=== PATIENT | female | born 1985 | race Caucasian/White ===

== ENCOUNTER 2018-04-19 09:55 | Emergency (ER) | payer MEDICAID, SELFPAY ==
[2018-04-19 10:06] VITALS: BP 111/56; PULSE 72; RESP 14; TEMP 37.2; O2SAT 99
--- NOTE | 2018-04-19 10:06 | ED.GENADUL_ITS ---
Disposition Clinical Impression: Pharyngitis Disposition: HOME Condition: Stable Instructions: Pharyngitis (ED) Additional Instructions: Drink plenty of fluids and get plenty of rest. Alternate Tylenol and Motrin as needed and directed for pain. Follow-up with your primary care doctor within the next week. Return to the emergency department with any worsening or new concerning symptoms. Medical Decision Making - Lab Data Rapid strep negative - Medical Decision Making 33-year-old female w/ sore throat for the past 2 days. Pharynx exam notes erythema but no exudates, tonsillar edema, or abscess. Uvula midline. Mild bilateral tender lymphadenopathy. She appears nontoxic and in no acute distress. She has normal vitals. Temp 99. Rapid strep done and negative. Patient is requesting to leave that she has to take her children home. It was explained to patient that her symptoms can certainly be viral but could turn bacterial and to be aware of any worsening symptoms and to follow-up with her primary care doctor or return to the ER for further evaluation. She was instructed to continue symptomatic treatment such as Tylenol, ibuprofen, saltwater gargles, and increase fluid intake and rest. History of Present Illness - General Stated complaint: SORE THROAT Time Seen by Provider: 04/19/18 10:03 Source: patient Mode of arrival: ambulatory Limitations: no limitations - History of Present Illness Initial comments: Patient is a 33-year-old female presents to the ER with complaint of sore throat for the past few days. 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 Also admits to occasional runny nose, headache. She denies fever chills. - Related Data Cholecalciferol (Vitamin D3) [Vitamin D3] 4,000 unit PO DAILY 04/12/17 Fluticasone Propionate [Flovent 220MCG] 440 mcg IH BID #1 inhaler 12/04/17 Allergies Allergy/AdvReac Type Severity Reaction Status Date / Time metronidazole [From Flagyl] Allergy Intermediate Skin Rash Unverified 04/19/18 10:09 Review of Systems Constitutional: denies: chills, fever Eyes: denies: eye pain ENT: throat pain. denies: ear pain, dental pain Respiratory: denies: cough, shortness of breath Cardiovascular: denies: chest pain, dyspnea on exertion Gastrointestinal: denies: abdominal pain, nausea, vomiting Genitourinary: denies: urgency, dysuria, frequency, dyspareunia Musculoskeletal: denies: back pain Skin: denies: rash, lesions Neurological: denies: headache, weakness, numbness Past Medical History - Past Medical History Medical history: asthma Fibrocystic disease of breast Surgical history: other (Sebaceous cyst L ear) - Social History Smoking status: current everyday smoker Alcohol use: none Drug use: marijuana General Exam - General Limitations: no limitations General appearance: alert, in no apparent distress - Eye Eye exam: Present: EOMI - ENT ENT exam: Present: other (Posterior pharyngeal erythema. No exudates, tonsillar edema, abscess. Uvula midline.) - Neck Neck exam: Present: normal inspection, lymphadenopathy (Bilateral anterior lymphadenopathy) - Respiratory Respiratory exam: Present: normal lung sounds bilaterally. Absent: respiratory distress, wheezes, rales, rhonchi, stridor - Cardiovascular Cardiovascular Exam: Present: regular rate, normal rhythm. Absent: bradycardia , tachycardia - GI/Abdominal GI/Abdominal exam: Present: soft, normal bowel sounds. Absent: distended, tenderness, guarding, rebound, rigid - Neurological Exam Neurological exam: Present: alert, oriented X3 - Psychiatric Psychiatric exam: Present: normal affect - Skin Skin exam: Present: warm, dry, intact
== END 2018-04-19 10:36 | disposition home or self-care (01) ==
PROVIDERS: Emergency Provider Physician Assistant; PCP Internal Medicine
DX: J02.9 Acute pharyngitis, unspecified (principal)
CPT/HCPCS: 87880; 99283; 87081; 99282

== ENCOUNTER 2018-05-04 09:47 | Emergency (ER) | payer MEDICAID, SELFPAY ==
[2018-05-04 09:51] VITALS: BP 108/63; PULSE 65; RESP 14; TEMP 37; O2SAT 97
--- NOTE | 2018-05-04 10:02 | DI.REPORT_ITS ---
SYMPTOM/DIAGNOSIS: PAIN, POSTERIOR ANKLE, MID FOOT LEFT ANKLE: No fracture or ankle mortise widening is seen. IMPRESSION: Negative left ankle. LEFT FOOT: No fracture or dislocation is seen. IMPRESSION: Negative left foot.
--- NOTE | 2018-05-04 10:02 | ED.GENADUL ---
Disposition Clinical Impression: Left foot pain, Left ankle pain, Plantar fasciitis of left foot Disposition: HOME Condition: Stable Instructions: Plantar Fasciitis (ED), Plantar Fasciitis Exercises (GEN) Additional Instructions: I did not see any abnormalities of your bone on the xray I suspect you have plantar fasciitis based on your exam Follow up with your primary care provider within 2 weeks if you have fevers, your foot becomes swollen and red return to the emergency department Medical Decision Making - Radiology Data Radiology results: image reviewed - Medical Decision Making Pt here with likely plantar fascitis or possible bone spur. will xray to eval for possible stress fx. Has no findings on exam or hx to suggest osteo or septic joint at this time xrays on my read show no acute abnormality, she doesn't want to wait for vrad report so will call her if any significant abnormalities seen. Will send home with crutches to use prn. Suspect plantar fascitis, will have her continue nsaids and f/u with pcp - Differential Diagnosis plantar fascitis, stress fracture, bone spur History of Present Illness - General Chief complaint: Orthopedic Stated complaint: LT FOOT PAIN Time Seen by Provider: 05/04/18 09:52 Source: patient Mode of arrival: ambulatory Limitations: no limitations - History of Present Illness Initial comments: 33 yo female who denies chronic medical problems comes in with cc of left foot pain for months but increased over the past week or two. She denies any known trauma or known increase in activity. She has seen her pcp and is going to see PT on but still has pain with walking so came here. She has pain of the entire plantar surface of the left foot and posterior ankle with no palpable or visible deformities, no rashes, no warmth, normal sensation and 2+ dp/pt pulses Complaint: left foot pain Onset/Timin -: month(s) Location: lower extremity Radiation: non-radiation Severity scale (1-10): 5 Quality: aching Consistency: constant Improves with: rest Worsens with: movement Associated Symptoms: denies other symptoms Treatments Prior to Arrival: none - Related Data Cholecalciferol (Vitamin D3) [Vitamin D3] 4,000 unit PO DAILY 04/12/17 Ibuprofen 400 mg PO QID #60 tab-cap 04/30/18 Allergies Allergy/AdvReac Type Severity Reaction Status Date / Time metronidazole [From Flagyl] Allergy Intermediate Skin Rash Unverified 05/04/18 09:56 Review of Systems Constitutional: denies: fever Respiratory: denies: shortness of breath Cardiovascular: denies: chest pain Gastrointestinal: denies: abdominal pain, vomiting Neurological: denies: headache Comment: All other systems reviewed and negative Past Medical History - Past Medical History Medical history: asthma Fibrocystic disease of breast Surgical history: other (Sebaceous cyst L ear) - Social History Alcohol use: none Drug use: marijuana General Exam - General Limitations: no limitations General appearance: alert, in no apparent distress - Head Head exam: Present: atraumatic - Eye Eye exam: Present: normal apperance - ENT ENT exam: Present: mucous membranes moist - Neck Neck exam: Present: normal inspection - Respiratory Respiratory exam: Absent: respiratory distress - Cardiovascular Cardiovascular Exam: Present: regular rate - Extremities Exam Extremities exam: Present: normal inspection, full ROM, tenderness, normal capillary refill. Absent: pedal edema, joint swelling, calf tenderness - Neurological Exam Neurological exam: Present: alert, oriented X3. Absent: motor sensory deficit - Psychiatric Psychiatric exam: Present: normal affect - Skin Skin exam: Present: warm Course Vital Signs - 24 hr 05/04/18 09:51 Temperature 98.6 F Pulse 65 Respiratory 14 Rate Blood Pressure 108/63 Pulse Oximetry 97
[2018-05-04] MEDS: Ibuprofen 600 MG TAB PO (10:05)
--- NOTE | 2018-05-04 11:03 | DI.VRAD_ITS ---
EXAM: XR Left Ankle Complete, 3 or more Views EXAM DATE/TIME: 05/04/2018 10:03 AM CLINICAL HISTORY: 33 years old, female; Signs and symptoms; Other: Pain posterior ankle TECHNIQUE: XR Left ankle 3 or more views. COMPARISON: No relevant prior studies available. FINDINGS: Bones/joints: No acute fracture or dislocation is identified. The ankle mortise is preserved on these nonstressed views. Soft tissues: The soft tissues appear grossly unremarkable. IMPRESSION: No significant abnormality. Dictated and Authenticated by: Johny Elena MD. Ordering:JAYDON LAND MD
--- NOTE | 2018-05-04 11:04 | DI.VRAD_ITS ---
EXAM: XR Left Foot Complete, 3 or more Views EXAM DATE/TIME: 05/04/2018 10:03 AM CLINICAL HISTORY: 33 years old, female; Signs and symptoms; Other: Pain of mid foot; Additional info: No known trauma TECHNIQUE: XR Left foot 3 or more views. COMPARISON: No relevant prior studies available. FINDINGS: Bones/joints: No acute fracture or dislocation is identified. Soft tissues: The soft tissues appear grossly unremarkable. IMPRESSION: No significant abnormality. Dictated and Authenticated by: Johny Elena MD. Ordering:JAYDON LAND MD
== END 2018-05-04 11:06 | disposition home or self-care (01) ==
PROVIDERS: Emergency Provider Emergency Medicine; PCP Internal Medicine
DX: M25.572 Pain in left ankle and joints of left foot (principal); M72.2 Plantar fascial fibromatosis
CPT/HCPCS: 99283; 73610; 73630; E0114

== ENCOUNTER 2018-05-16 14:30 | Outpatient (RCR) | payer MEDICAID, SELFPAY ==
--- NOTE | 2018-05-08 15:51 | IE_ITS ---
Date: 05/08/18 Referring: Dr. Neda Jones Diagnosis: left plantar fasciitis P.T. Diagnosis: bilateral Achilles tendinitis, bilat plantar fasciitis SUBJECTIVE: History of Present Illness: Geovanni presents with complaints of insidious onset foot and ankle pain. She states that she began noticing left heel pain when getting out of bed in the morning several weeks ago. She's unable to attribute onset of pain to any specific activity, although does note that she began wearing an old pair of clogs around that time, which were very worn. She feels this may have contributed. She began noticing worsening symptoms as weeks went on, eventually affecting both heels. She purchased a pair of [employer]oka sneakers , and also got 2 pairs of cushioning inserts, which she's worn only intermittently, as she did not feel any significant improvement with use. She in fact began noticing discomfort in the forefoot due to her shoe feeling too tight. She eventually resorted to using crutches for a couple of days, and at that point feels that the pain seemed to become less in her heels and more into the back of the heel and up into the lower calf. She's very frustrated with her continued pain, and has a great deal of questions about how she can remedy this situation with exercises, footwear, etc. Pain Ratin-8/10, dependent on activity Pain Location: patient references achilles tendon, right>left as location of pain Prior Level of Function: Active and independent. 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 This requires a significant amount of walking. She also has 3 children between the ages of 3-14 , and is active with her kids. She states that she is very particular about her housework, and on her days off she spends a great deal of time on her feet cleaning, often for several hours at a time. Current Level of Function: Unable to walk for long periods due to pain. She continues to have pain when first getting out of bed, or when walking for longer periods. She is unable to perform her normal housework, or walk long distances (>2 blocks). She's unable to perform her normal walking routine, or participate in [place]. She has pain with stair management and is unable to run due to pain. Previous Treatment: Pt has seen her PCP 2x, and has also presented to the ER due to the severity of her pain. She's had x-rays, which were (-), and has been issued crutches, which she used for a couple of days only. Comorbidities: non-contributory Falls in the last year: __x__ No ____Yes - How many? ____ - (if over 2, balance SM needs to be completed) Reported hospitalizations in the last year - __x__ No ____ Yes - Dates of admission/reason: Medications: ibuprofen prn; vit D Quality of Life: ____ Excellent __x__ Good ____ Fair ____ Poor Standardized Measures: LEFS score: __55% deficit__ OBJECTIVE: Posture: Patient demonstrates good upright posturing. She has good maintenance of longitudinal arches, although with (+) too many toes sign left > right. She has a stability type sneaker of excellent quality. Gait: Marked antalgia, with flat foot through all phases of gait and subsequently shortened stride length. With cues, patient is able to regain heel strike and push off, with normalized stride length. Palpation: Tenderness to palpation along the Achilles tendon right>left. Mild tenderness at the calcaneal insertion of the plantar fascia bilat. No significant tenderness throughout the PF itself. Joint mobility between the metatarsals is normal. Talocrural mobility is WNL and non-pain reproducing. Edema: None ROM: Foot and ankle motion is WNL and painfree. Patient tolerates stretch position of the PF well, in fact reporting some relief with stretch. Ankle DF is normal, although with some drawing through the calf. This is worsened in flexed knee position for stretch to the soleus, although she continues to tolerate 20 degrees of DF. Strength: Hip flexion 5/5 bilat. Quads 5/5 bilat. HS 4/5 bilat. Hip IR 4/5 bilat. ER 4/5 bilat. Ankle DF 5/5 bilat. PF 4/5, with pain reproduction with bilat HR. Poor TrA activation with need for max cues. Neuro: Dermatomes and myotomes WNL. SLR (-) and allows 80 degrees bilat. DTRs are 2+ for patella and achilles tendon reflexes. Special Tests: (-) Harkins test. Treatment: Today's session consisted of evaluation, followed by long discussion regarding self-management and footwear. Patient received IASTM for down regulation throughout the calves bilat, followed by Rock Taping to the the Achilles tendon bilat. She was instructed in self-stretching and core stabilization exercises. Altered her shoe laces to open the toe box and encouraged resumed use of orthotic inserts. IE: [id number] Total treatment time was 65 minutes. ASSESSMENT: Patient is a 33-year-old female, referred for PT services with the diagnosis of left plantar fasciitis. Patient presents with clinical signs and symptoms consistent with bilat plantar fasciitis, which appears to be resolving, although with the unfortunate development of bilat Achilles tendinitis. I suspect this is largely due to alterations in gait mechanics and movement patterns, and that patient will do well with gait training and progressive stretching and strengthening. She's also made some good modifications in footwear, etc, which will be helpful. She currently demonstrates the following impairment level findings: 1. Decreased core strength 2.Decreased LE strength 3. Localized inflammation at the Achilles tendon bilat 4. Gait deviations Impairments are contributing to the following functional limitations: 1. Gait deviations 2. Unable to tolerate long distance walking 3. Unable to perform normal household duties 4. Intermittent reliance on crutches 5. Unable to perform normal wellness activities Patient is assessed as: __x__ Low 31995 ____ Moderate 84178 ____ High 95771 complexity, based on the following: History: (list): Insidious onset foot and ankle pain in otherwise healthy 33 year old female. See comorbidities and social history. Examination: (list): functional limitations as above See above for functional limitations and impairments. Presentation: x Stable . Evolving Unstable Decision-Making: x Low complexity Moderate complexity High complexity 55% % Disability based on LEFS __x__ Patient requires skilled PT intervention to remediate the above functional limitations to return to: __x__ Premorbid level of function __x__ Return to full functional mobility __x__ Return to work demands __x__ Improve QOL ____ Other: Prognosis: ____ Excellent __x__ Good ____ Fair ____ Poor STG: __6__ weeks. 1. Non-antalgic gait 2. Able to tolerate community distance walking for work duties LTG: __12__ weeks. __x__ Return to premorbid level of function. __x__ Return to full, pain-free, functional mobility. __x__ Independent with self-maintenance program. __x__ Improved overall function as demonstrated by LEFS score of <20% deficit PLAN: Patient to be seen 2 x per week, for 12 weeks, adjusting frequency of visits per patient symptoms and response to treatment. Treatment to include: x Manual therapy - [id number]: DTM techniques and neuro-facilitation with use of IASTM and taping techniques. Will also perform manual stretching and joint mobilizations throughout the foot and ankle. x Therapeutic exercise - [id number]- Will instruct patient in a progressive strengthening program for LEs and core stabilization. She was instructed in self-stretching exercises today, and will progress as she 's able to tolerate. Will also incorporate gait training and continue encouraging appropriate LE support. Thank you for this referral. Please do not hesitate to contact me with any questions or concerns regarding this patient's plan of care.
--- NOTE | 2018-05-12 14:02 | PTTR_ITS ---
DATE: 05/12/18 SUBJECTIVE: Geovanni states that her ankles are about the same. Her pain has localized to the Achilles tendon. It is worse with ambulation. She has been using her crutches quite regularly. She has concerns about returning to work on Saturday, and the amount of walking that will be required. OBJECTIVE: Manual therapy: ([id number]). The patient has tape in place from her previous visit. She received friction massage to the Achilles tendon as well as cross friction massage at the musculotendinous junction. She received manual stretching of the Achilles bilaterally. Therapeutic procedures ([id number]). * x HEP review: She was encouraged to continue with this. She was progressed to include standing heel raises x20 reps. * She required both verbal and tactile cues for appropriate completion and avoidance of reliance on UE support. * During ambulation she demonstrated flat foot at both heel strike and push off with rigid upright posturing and lack of arm swing. She requires significant cueing for heel/toe mechanics and improved overall gait mechanics. * She was also fitted with a heel lift, which provides some symptomatic relief with ambulation. * She is provided with a note for work to allow for seated rest breaks as pain requires and use of elevator in order to avoid stairs. Direct treatment time: 45 minutes SS/gc
--- NOTE | 2018-05-16 15:34 | PTTR_ITS ---
DATE: 05/16/18 SUBJECTIVE: Geovanni states that she's feeling a little better. She used the heel lift for two days, then removed it due to increasing pain through the bottom of the heel. She removed it yesterday, and states that her Achilles seems to be hurting more today. She continues to use her crutches intermittently. Compliant with HEP: x Yes No OBJECTIVE: Manual therapy: ([id number]): Removed kinesiotape bilaterally, as there is significant fraying. She received FM to the Achilles bilat, followed by CFM to the musculotendinous junction. She received manual gastroc stretching bilat. Therapeutic procedures ([id number]). * x HEP review: * x Provided skilled instruction in proper exercise performance: Patient was instructed in progression of HR to performance on stair (10 reps, 3x/day), as well as self-stretching to the Achilles on the stairs, 20 second holds, 3x/day. She continues to demonstrate flat foot at push off, and she received verbal and visual cues for gait training. She's able to demonstrate marked improvements with nearly normal gait patterns, although with limited carry over with elimination of mirror. * [] Provided skilled manual cues to facilitate proper muscle recruitment and /or movement pattern: [] Direct treatment time: 35 minutes Total treatment time: 35 minutes
== END 2018-05-16 23:59 | disposition home or self-care (01) ==
LOC: PT 14:30
PROVIDERS: PCP Internal Medicine; Referring Provider Internal Medicine; Visit Provider Internal Medicine
DX: M72.2 Plantar fascial fibromatosis (principal); M76.61 Achilles tendinitis, right leg; M76.62 Achilles tendinitis, left leg
CPT/HCPCS: 97110; 97140; 97161

== ENCOUNTER 2018-07-18 17:33 | Emergency (ER) | payer MEDICAID, SELFPAY ==
[2018-07-18 17:36] VITALS: BP 134/81; PULSE 82; RESP 16; TEMP 36.7; O2SAT 100
[2018-07-18 19:04] VITALS: PULSE 82; RESP 16; RESP 4; O2SAT 100
[2018-07-18] MEDS: Albuterol/Ipratropium 3 ML UPD VIAL UPD (19:04)
--- NOTE | 2018-07-18 19:16 | W.ED.GENAD ---
Discharge Plan Disposition Patient Disposition: HOME Condition: Improving Discharge Details Chief Complaint: RespSymp Clinical Impression: Acute serous otitis media, bilateral, URI (upper respiratory infection), Pneumonia Primary Care Provider: Joseph Syed ED Provider: Ricky Bahena Home Meds and New Rx's Prescriptions: Continue cholecalciferol (vitamin D3) [Vitamin D3] 2,000 UNIT capsule 4,000 unit PO DAILY RF: 0 ibuprofen 400 MG tablet 400 mg PO QID Qty: 60 RF: 2 No Action sulfamethoxazole-trimethoprim [Bactrim] 400-80 mg tablet 1 tab PO BID Qty: 14 RF: 1 Discharge Instructions Instructions: Upper Respiratory Infection (ED), Pneumonia (ED), Serous Otitis Media (ED) Additional Instructions: Take medication as prescribed and feel free to return to the emergency department for any new or worsening symptoms. In regards to you and your your inhaler you may take 1-2 puffs every 4 hours as needed for chest tightness and it is recommended that you use this with the spacer. For nasal congestion it is recommended that use of a [id number] decongestant such as Sudafed or other symptomatic treatment available. Just take as directed on packaging. Otherwise during illness please stay well-hydrated and get plenty of rest. Referrals: Joseph Syed [Primary Care Provider] - (As needed for reassessment or if not improving by the end of the antibiotics.) Discharge Data Discharge Date/Time-TO BE ENTERED AT DEPARTURE: 07/18/18 20:38 Medical Decision Making Patient presenting to the emergency department for complaint of dizziness and chest tightness. Patient states that she was seen earlier today at the PCP office and diagnosed with pneumonia and started on azithromycin and prednisone which she has not taken. Patient states when she was driving she started feeling a fullness in her ears and started having dizziness. Patient states that she has been sick for the past couple weeks and had initially improved and then worsened over the past 3 days. Physical exam does show significant bulging of the TMs bilateral but no erythema. She does have diffuse wheezing with some rhonchi heard on the left lung. Patient given duo nebulizer. Patient did wait prior to my examination and actually states that she now feels better and only has some slight dizziness with positional change. I feel that this is due to the increase in pressure with the ear given upper respiratory tract infect. Patient has other physical exam findings suggestive of upper respiratory tract infection but otherwise no neurological findings on exam and no other physical findings noted. Patient reassessed after nebulizer treatment and did have some improvement in wheezing but not full improvement. Patient was given a Ventolin inhaler with spacer and educated on use. Otherwise after thorough and lengthy discussion about use of azithromycin and prednisone and [id number] Sudafed patient states no further needs, questions, or concerns. Patient is otherwise stable with appropriate vital signs and no hypoxia so I feel that she is able to be safely discharged. Patient encouraged to follow-up with primary care office as needed for reassessment or return immediately to the emergency department for new or worsening symptoms. HPI General Mode of arrival: ambulatory. Date/Time Provider Initiated Documentation: 07/18/18 17:42. Limitations to Documentation: no limitations. Information obtained by: patient. History of Present Illness 33 year old F presents to the emergency department with the chief complaint of Ear pain, anxiety, described as mild, with intensity rated at 2. Quality is described as aching, and is localized to the head (bilateral ears). Patient started experiencing this day(s) (1) and it has been constant. No relieving factors improve symptom(s), No exacerbating factors reported . Patient notes chest pain. Patient did receive the following treatments prior to arrival, none Related Data Home Medications Medication Instructions Recorded Confirmed cholecalciferol (vitamin D3) 4,000 unit PO DAILY 04/12/17 07/23/18 [Vitamin D3] ibuprofen 400 mg PO QID #60 tab-cap 04/30/18 07/23/18 sulfamethoxazole 400 1 tab PO BID #14 tab 07/24/18 mg-trimethoprim 80 mg tablet Previous Rx's Medication Instructions Recorded ibuprofen 400 mg PO QID #60 tab-cap 04/30/18 sulfamethoxazole 400 1 tab PO BID #14 tab 07/24/18 mg-trimethoprim 80 mg tablet Allergies Allergy/AdvReac Type Severity Reaction Status Date / Time metronidazole [From Flagyl] Allergy Intermediate Skin Rash Unverified 07/23/18 10:02 prednisone AdvReac Intermediate Agitation, Verified 07/23/18 10:46 hyperactivity,palpitations General Stated Complaint: RespSymp ANITRA: 3 Review of Systems Constitutional Reports chills, Reports difficulty sleeping (Due to coughing), Reports fatigue, Reports fever(s) and Reports malaise ENT Reports hoarseness, Reports nasal congestion, Reports sinus pressure and Reports sore throat Cardiovascular Reports dyspnea Respiratory Reports chest congestion, Reports cough and Reports dyspnea Gastrointestinal Denies abdominal pain, Denies diarrhea, Denies nausea and Denies vomiting Musculoskeletal Denies joint swelling Integumentary/Breasts Denies rash Endocrine Reports fatigue Exam Const General: cooperative, comfortable, no acute distress and anxious Nutritional Appearance: average body habitus Orientation: alert, awake and oriented x3 [facility] Head: normal to inspection, normocephalic and atraumatic Ears: hearing grossly normal bilaterally, external ears normal and TM's normal bilaterally General nose exam: external nose normal, nares normal, no nasal discharge and other (Nasal congestion) Mouth: oral mucosae normal, lip normal, tongue normal and moist mucous membranes Throat: abnormal tonsil bilaterally erythema (mild); no exudates and postnasal drainage Eyes General: appearance normal, both eyes and all related structures Conjunctivae: conjunctivae normal Sclera: sclerae normal Neck Neck: normal visual inspection, full ROM, no lymphadenopathy, meningismus present and no JVD Resp Effort & Inspection: normal respiratory effort, able to speak in complete sentences, no audible wheezes, cough Quality of cough: actively coughing and not labored Auscultation: clear to auscultation bilaterally, rhonchi left upper and left lower and wheezes scattered wheezes, left lower, lower bilaterally and left upper Cardio Rate: regular rate Rhythm: regular rhythm Heart Sounds: S1 normal and S2 normal Skin General skin exam: no rashes or lesions noted and dry skin Rashes: no rashes Neuro General: alert, awake, oriented x3, gait normal, tone normal, moves all extremities, no meningeal signs, CN's II-XI intact bilaterally and not confused Course Vital Signs Temperature 36.7 C 07/18/18 17:36 Pulse 82 07/18/18 17:36 Respiratory Rate 16 07/18/18 17:36 Blood Pressure 134/81 07/18/18 17:36 Pulse Oximetry 100 07/18/18 17:36 Temperature 36.7 C 07/18/18 17:36 Temperature Source Temporal Artery Scan 07/18/18 17:36 Pulse 82 07/18/18 19:04 Respiratory Rate 16 07/18/18 19:04 Respiratory Effort 07/18/18 17:40 Blood Pressure 134/81 07/18/18 17:36 Blood Pressure Position Sitting 07/18/18 17:36 Pulse Oximetry 100 07/18/18 19:04 Oxygen Delivery Method Room Air 07/18/18 19:04 Oxygen Flow Rate 0 07/18/18 19:04 Pain Level 2 07/18/18 17:36
[2018-07-18 19:34] VITALS: PULSE 82; RESP 14; O2SAT 98
--- NOTE | 2018-07-18 19:39 | ED.GENADUL_ITS ---
Discharge Plan Disposition Patient Disposition: HOME Condition: Improving Discharge Details Chief Complaint: RespSymp Clinical Impression: Acute serous otitis media, bilateral, URI (upper respiratory infection), Pneumonia Primary Care Provider: Joseph Syed ED Provider: Ricky Bahena Home Meds and New Rx's Prescriptions: Continue cholecalciferol (vitamin D3) [Vitamin D3] 2,000 UNIT capsule 4,000 unit PO DAILY RF: 0 ibuprofen 400 MG tablet 400 mg PO QID Qty: 60 RF: 2 No Action sulfamethoxazole-trimethoprim [Bactrim] 400-80 mg tablet 1 tab PO BID Qty: 14 RF: 1 Discharge Instructions Instructions: Upper Respiratory Infection (ED), Pneumonia (ED), Serous Otitis Media (ED) Additional Instructions: Take medication as prescribed and feel free to return to the emergency department for any new or worsening symptoms. In regards to you and your your inhaler you may take 1-2 puffs every 4 hours as needed for chest tightness and it is recommended that you use this with the spacer. For nasal congestion it is recommended that use of a graz-[id number]-hvuzuvw decongestant such as Sudafed or other symptomatic treatment available. Just take as directed on packaging. Otherwise during illness please stay well-hydrated and get plenty of rest. Referrals: Joseph Syed [Primary Care Provider] - (As needed for reassessment or if not improving by the end of the antibiotics.) Discharge Data Discharge Date/Time-TO BE ENTERED AT DEPARTURE: 07/18/18 20:38 Medical Decision Making Patient presenting to the emergency department for complaint of dizziness and chest tightness. Patient states that she was seen earlier today at the PCP office and diagnosed with pneumonia and started on azithromycin and prednisone which she has not taken. Patient states when she was driving she started feeling a fullness in her ears and started having dizziness. Patient states that she has been sick for the past couple weeks and had initially improved and then worsened over the past 3 days. Physical exam does show significant bulging of the TMs bilateral but no erythema. She does have diffuse wheezing with some rhonchi heard on the left lung. Patient given duo nebulizer. Patient did wait prior to my examination and actually states that she now feels better and only has some slight dizziness with positional change. I feel that this is due to the increase in pressure with the ear given upper respiratory tract infect. Patient has other physical exam findings suggestive of upper respiratory tract infection but otherwise no neurological findings on exam and no other physical findings noted. Patient reassessed after nebulizer treatment and did have some improvement in wheezing but not full improvement. Patient was given a Ventolin inhaler with spacer and educated on use. Otherwise after thorough and lengthy discussion about use of azithromycin and prednisone and [id number] Sudafed patient states no further needs, questions, or concerns. Patient is otherwise stable with appropriate vital signs and no hypoxia so I feel that she is able to be safely discharged. Patient encouraged to follow-up with primary care office as needed for reassessment or return immediately to the emergency department for new or worsening symptoms. HPI General Mode of arrival: ambulatory . Date/Time Provider Initiated Documentation: 07/18/18 17:42 . Limitations to Documentation: no limitations . Information obtained by: patient . History of Present Illness 33 year old F presents to the emergency department with the chief complaint of Ear pain, anxiety, described as mild, with intensity rated at 2. Quality is described as aching, and is localized to the head (bilateral ears). Patient started experiencing this day(s) (1) and it has been constant. No relieving factors improve symptom(s), No exacerbating factors reported . Patient notes chest pain. Patient did receive the following treatments prior to arrival, none Related Data Home Medications Medication Instructions Recorded Confirmed cholecalciferol (vitamin D3) 4,000 unit PO DAILY 04/12/17 07/23/18 [Vitamin D3] ibuprofen 400 mg PO QID #60 tab-cap 04/30/18 07/23/18 sulfamethoxazole 400 1 tab PO BID #14 tab 07/24/18 mg-trimethoprim 80 mg tablet Previous Rx's Medication Instructions Recorded ibuprofen 400 mg PO QID #60 tab-cap 04/30/18 sulfamethoxazole 400 1 tab PO BID #14 tab 07/24/18 mg-trimethoprim 80 mg tablet Allergies Allergy/AdvReac Type Severity Reaction Status Date / Time metronidazole [From Flagyl] Allergy Intermediate Skin Rash Unverified 07/23/18 10:02 prednisone AdvReac Intermediate Agitation, Verified 07/23/18 10:46 hyperactivity,palpitations General Stated Complaint: RespSymp ANITRA: 3 Review of Systems Constitutional Reports chills, Reports difficulty sleeping (Due to coughing), Reports fatigue, Reports fever(s) and Reports malaise ENT Reports hoarseness, Reports nasal congestion, Reports sinus pressure and Reports sore throat Cardiovascular Reports dyspnea Respiratory Reports chest congestion, Reports cough and Reports dyspnea Gastrointestinal Denies abdominal pain, Denies diarrhea, Denies nausea and Denies vomiting Musculoskeletal Denies joint swelling Integumentary/Breasts Denies rash Endocrine Reports fatigue Exam Const General: cooperative, comfortable, no acute distress and anxious Nutritional Appearance: average body habitus Orientation: alert, awake and oriented x3 [facility] Head: normal to inspection, normocephalic and atraumatic Ears: hearing grossly normal bilaterally, external ears normal and TM's normal bilaterally General nose exam: external nose normal, nares normal, no nasal discharge and other (Nasal congestion) Mouth: oral mucosae normal, lip normal, tongue normal and moist mucous membranes Throat: abnormal tonsil bilaterally erythema (mild); no exudates and postnasal drainage Eyes General: appearance normal, both eyes and all related structures Conjunctivae: conjunctivae normal Sclera: sclerae normal Neck Neck: normal visual inspection, full ROM, no lymphadenopathy, meningismus present and no JVD Resp Effort & Inspection: normal respiratory effort, able to speak in complete sentences, no audible wheezes, cough Quality of cough: actively coughing and not labored Auscultation: clear to auscultation bilaterally, rhonchi left upper and left lower and wheezes scattered wheezes, left lower, lower bilaterally and left upper Cardio Rate: regular rate Rhythm: regular rhythm Heart Sounds: S1 normal and S2 normal Skin General skin exam: no rashes or lesions noted and dry skin Rashes: no rashes Neuro General: alert, awake, oriented x3, gait normal, tone normal, moves all extremities, no meningeal signs, CN's II-XI intact bilaterally and not confused Course Vital Signs Temperature 36.7 C 07/18/18 17:36 Pulse 82 07/18/18 17:36 Respiratory Rate 16 07/18/18 17:36 Blood Pressure 134/81 07/18/18 17:36 Pulse Oximetry 100 07/18/18 17:36 Temperature 36.7 C 07/18/18 17:36 Temperature Source Temporal Artery Scan 07/18/18 17:36 Pulse 82 07/18/18 19:04 Respiratory Rate 16 07/18/18 19:04 Respiratory Effort 07/18/18 17:40 Blood Pressure 134/81 07/18/18 17:36 Blood Pressure Position Sitting 07/18/18 17:36 Pulse Oximetry 100 07/18/18 19:04 Oxygen Delivery Method Room Air 07/18/18 19:04 Oxygen Flow Rate 0 07/18/18 19:04 Pain Level 2 07/18/18 17:36
[2018-07-18] MEDS: Ondansetron O.D.T. 4 MG TABEF (20:33)
[2018-07-18] MEDS: Albuterol HFA 8 GM 60 PUFF INH IH (20:34)
[2018-07-18] MEDS: Inhaler, Assist Device 1 EACH MC (20:36)
[2018-07-18 20:39] VITALS: BP 122/71; PULSE 82; TEMP 37; O2SAT 98
== END 2018-07-18 20:38 | disposition home or self-care (01) ==
PROVIDERS: Emergency Provider Nurse Practitioner Family; PCP Family Medicine
DX: H65.03 Acute serous otitis media, bilateral (principal); J18.9 Pneumonia, unspecified organism; J06.9 Acute upper respiratory infection, unspecified
CPT/HCPCS: 94640; 99283; J7620

== ENCOUNTER → 2018-07-20 01:07 | Emergency (ER) | payer MEDICAID, SELFPAY ==
[2018-07-20] MEDS: diphenhydrAMINE 25 MG CAP PO ×2 (01:16→01:17)
[2018-07-20 01:38] VITALS: BP 137/86; PULSE 85; RESP 124; TEMP 36.4; O2SAT 97
--- NOTE | 2018-07-20 01:47 | W.ED.GENAD ---
Discharge Plan Disposition Patient Disposition: HOME Condition: Improving Discharge Details Chief Complaint: GenMedical Clinical Impression: Medication side effect Primary Care Provider: Joseph Syed ED Provider: Errol Pacheco Home Meds and New Rx's Prescriptions: Continue azithromycin [Zithromax Z-Madi] 250 mg tablet See Label Instructions PO .COMPLEX Qty: 6 RF: 0 cholecalciferol (vitamin D3) [Vitamin D3] 2,000 UNIT capsule 4,000 unit PO DAILY RF: 0 ibuprofen 400 MG tablet 400 mg PO QID Qty: 60 RF: 2 Discontinued prednisone 20 mg tablet 40 mg PO DAILY Qty: 10 RF: 0 Discharge Instructions Additional Instructions: Stop the prednisone as we discussed. Continue the previously prescribed azithromycin. May take Benadryl 25 mg at home tonight to assist with sleep. Return to the emergency department for any acute concerns Medical Decision Making 33-year-old female who has had a mild URI for which she was started on azithromycin and prednisone. After taking the prednisone she arrives to the emergency department approximately 6 hours later feeling anxious and if she is crawling out of her own skin. She has normal vital signs, her exam is notable only for mild distention of the left tympanic membrane. Patient symptoms are consistent with intolerance of steroid and mild steroid induced mood disruption. Discussed with her that I would encourage her to finish the antibiotics, but do not feel that she should continue the prednisone. She is given a single Benadryl tablet to take at home to assist with sleep. She will return to the emergency department for any acute concerns. HPI General Mode of arrival: ambulatory. Date/Time Provider Initiated Documentation: 07/20/18 01:35 EDT. Limitations to Documentation: no limitations. Information obtained by: patient. History of Present Illness 33 year old F presents to the emergency department with the chief complaint of Feeling anxious, described as moderate, Quality is described as constant, Patient started experiencing this hour(s) and it has been constant. No relieving factors improve symptom(s), No exacerbating factors reported . HPI Narrative: 33-year-old female who has had days of upper respiratory cough and congestion with fullness in her ears. She was placed on prednisone and azithromycin. She states she took the first prednisone tablet today. She woke up approximately 5 hours later feeling as if you were crawling out of her skin, feeling anxious, feeling as if something more wrong. She did not have shortness of breath, no fever, no persistent cough or vomiting. She does not been known to have taken prednisone before Related Data Home Medications Medication Instructions Recorded Confirmed cholecalciferol (vitamin D3) 4,000 unit PO DAILY 04/12/17 07/20/18 [Vitamin D3] ibuprofen 400 mg PO QID #60 tab-cap 04/30/18 07/20/18 azithromycin 250 mg tablet See Label Instructions PO .COMPLEX 07/18/18 07/20/18 #6 tab Previous Rx's Medication Instructions Recorded ibuprofen 400 mg PO QID #60 tab-cap 04/30/18 azithromycin 250 mg tablet See Label Instructions PO .COMPLEX 07/18/18 #6 tab Allergies Allergy/AdvReac Type Severity Reaction Status Date / Time metronidazole [From Flagyl] Allergy Intermediate Skin Rash Unverified 07/18/18 17:39 General Stated Complaint: GenMedical ANITRA: 3 Review of Systems Review of Systems 6 systems reviewed and otherwise neg [facility] Medical History (Reviewed 07/20/18 @ 01:48 EDT by Errol Pacheco MD) Bacterial vaginosis Contraception Disease of sebaceous glands Social History Smoking/Tobacco Use Status: Former Tobacco Use Surgical History (Reviewed 07/20/18 @ 01:48 EDT by Errol Pacheco MD) Excision, Lesion (04/09/17) Exam Narrative Exam Narrative: GEN: awake, alert, oriented 3. Pleasant, well groomed, interactive, anxious. HEAD: Normocephalic, atraumatic ENT: Mucous membranes moist, oropharynx unremarkable, External ear exam unremarkable. Left tympanic membrane distended and erythematous, subtle loss of light reflex EYES: PERRL, EOMI NECK: Full ROM, no AMA, no menigismus CHEST/RESP: Nontender, clear to auscultation bilateral, no wheeze/rhonchi/rales CARDIOVASCULAR: RRR, no murmur, rub nancy. 2+ Rad pulse bilateral ABDOMEN: Soft, nontender, no mass. +Bowel sounds EXT: Full ROM, no edema, no rash Neuro: Grossly normal neurologic exam, conversant, interactive. Psych: Speech fluent, thoughts congruent, affect anxious Course Vital Signs Temperature 36.4 C L 07/20/18 01:38 EDT Pulse 85 07/20/18 01:38 EDT Respiratory Rate 124 H 07/20/18 01:38 EDT Blood Pressure 137/86 07/20/18 01:38 EDT Pulse Oximetry 97 07/20/18 01:38 EDT Temperature 36.4 C L 07/20/18 01:38 EDT Temperature Source Temporal Artery Scan 07/20/18 01:38 EDT Pulse 85 07/20/18 01:38 EDT Respiratory Rate 124 H 07/20/18 01:38 EDT Respiratory Effort Non-Labored 07/20/18 01:42 EDT Blood Pressure 137/86 07/20/18 01:38 EDT Blood Pressure Position Sitting 07/20/18 01:38 EDT Pulse Oximetry 97 07/20/18 01:38 EDT Oxygen Delivery Method Room Air 07/20/18 01:38 EDT Oxygen Flow Rate 0 07/20/18 01:38 EDT Pain Level 0 07/20/18 01:38 EDT
--- NOTE | 2018-07-20 01:50 | ED.GENADUL_ITS ---
Discharge Plan Disposition Patient Disposition: HOME Condition: Improving Discharge Details Chief Complaint: GenMedical Clinical Impression: Medication side effect Primary Care Provider: Joseph Syed ED Provider: Errol Pacheco Home Meds and New Rx's Prescriptions: Continue azithromycin [Zithromax Z-Madi] 250 mg tablet See Label Instructions PO .COMPLEX Qty: 6 RF: 0 cholecalciferol (vitamin D3) [Vitamin D3] 2,000 UNIT capsule 4,000 unit PO DAILY RF: 0 ibuprofen 400 MG tablet 400 mg PO QID Qty: 60 RF: 2 Discontinued prednisone 20 mg tablet 40 mg PO DAILY Qty: 10 RF: 0 Discharge Instructions Additional Instructions: Stop the prednisone as we discussed. Continue the previously prescribed azithromycin. May take Benadryl 25 mg at home tonight to assist with sleep. Return to the emergency department for any acute concerns Medical Decision Making 33-year-old female who has had a mild URI for which she was started on azithromycin and prednisone. After taking the prednisone she arrives to the emergency department approximately 6 hours later feeling anxious and if she is crawling out of her own skin. She has normal vital signs, her exam is notable only for mild distention of the left tympanic membrane. Patient symptoms are consistent with intolerance of steroid and mild steroid induced mood disruption. Discussed with her that I would encourage her to finish the antibiotics, but do not feel that she should continue the prednisone. She is given a single Benadryl tablet to take at home to assist with sleep. She will return to the emergency department for any acute concerns. HPI General Mode of arrival: ambulatory . Date/Time Provider Initiated Documentation: 07/20/18 01:35 EDT . Limitations to Documentation: no limitations . Information obtained by: patient . History of Present Illness 33 year old F presents to the emergency department with the chief complaint of Feeling anxious, described as moderate, Quality is described as constant, Patient started experiencing this hour(s) and it has been constant. No relieving factors improve symptom(s), No exacerbating factors reported . HPI Narrative: 33-year-old female who has had days of upper respiratory cough and congestion with fullness in her ears. She was placed on prednisone and azithromycin. She states she took the first prednisone tablet today. She woke up approximately 5 hours later feeling as if you were crawling out of her skin, feeling anxious, feeling as if something more wrong. She did not have shortness of breath, no fever, no persistent cough or vomiting. She does not been known to have taken prednisone before Related Data Home Medications Medication Instructions Recorded Confirmed cholecalciferol (vitamin D3) 4,000 unit PO DAILY 04/12/17 07/20/18 [Vitamin D3] ibuprofen 400 mg PO QID #60 tab-cap 04/30/18 07/20/18 azithromycin 250 mg tablet See Label Instructions PO .COMPLEX 07/18/18 07/20/18 #6 tab Previous Rx's Medication Instructions Recorded ibuprofen 400 mg PO QID #60 tab-cap 04/30/18 azithromycin 250 mg tablet See Label Instructions PO .COMPLEX 07/18/18 #6 tab Allergies Allergy/AdvReac Type Severity Reaction Status Date / Time metronidazole [From Flagyl] Allergy Intermediate Skin Rash Unverified 07/18/18 17:39 General Stated Complaint: GenMedical ANITRA: 3 Review of Systems Review of Systems 6 systems reviewed and otherwise neg [facility] Medical History (Reviewed 07/20/18 @ 01:48 EDT by Errol Pacheco MD) Bacterial vaginosis Contraception Disease of sebaceous glands Social History Smoking/Tobacco Use Status: Former Tobacco Use Surgical History (Reviewed 07/20/18 @ 01:48 EDT by Errol Pacheco MD) Excision, Lesion (04/09/17) Exam Narrative Exam Narrative: GEN: awake, alert, oriented 3. Pleasant, well groomed, interactive, anxious. HEAD: Normocephalic, atraumatic ENT: Mucous membranes moist, oropharynx unremarkable, External ear exam unremarkable. Left tympanic membrane distended and erythematous, subtle loss of light reflex EYES: PERRL, EOMI NECK: Full ROM, no AMA, no menigismus CHEST/RESP: Nontender, clear to auscultation bilateral, no wheeze/rhonchi/rales CARDIOVASCULAR: RRR, no murmur, rub nancy. 2+ Rad pulse bilateral ABDOMEN: Soft, nontender, no mass. +Bowel sounds EXT: Full ROM, no edema, no rash Neuro: Grossly normal neurologic exam, conversant, interactive. Psych: Speech fluent, thoughts congruent, affect anxious Course Vital Signs Temperature 36.4 C L 07/20/18 01:38 EDT Pulse 85 07/20/18 01:38 EDT Respiratory Rate 124 H 07/20/18 01:38 EDT Blood Pressure 137/86 07/20/18 01:38 EDT Pulse Oximetry 97 07/20/18 01:38 EDT Temperature 36.4 C L 07/20/18 01:38 EDT Temperature Source Temporal Artery Scan 07/20/18 01:38 EDT Pulse 85 07/20/18 01:38 EDT Respiratory Rate 124 H 07/20/18 01:38 EDT Respiratory Effort Non-Labored 07/20/18 01:42 EDT Blood Pressure 137/86 07/20/18 01:38 EDT Blood Pressure Position Sitting 07/20/18 01:38 EDT Pulse Oximetry 97 07/20/18 01:38 EDT Oxygen Delivery Method Room Air 07/20/18 01:38 EDT Oxygen Flow Rate 0 07/20/18 01:38 EDT Pain Level 0 07/20/18 01:38 EDT
== END | disposition home or self-care (01) ==
LOC: ER 01:20
PROVIDERS: Emergency Provider Emergency Medicine; PCP Family Medicine
DX: F41.9 Anxiety disorder, unspecified (principal); T38.0X5A Adverse effect of glucocorticoids and synthetic analogues, initial encounter; R05 Cough
CPT/HCPCS: 99283

== ENCOUNTER 2018-07-23 10:48 | Outpatient (CLI) | payer MEDICAID, SELFPAY ==
[2018-07-23 12:59] LABS: Abs Immature Grans 0.01 k/cumm (0.0-0.09); Absolute Basophil Count 0.03 k/cumm (0.0-0.2); Absolute Eosinophil Count 0.09 k/cumm (0.0-0.7); Absolute Monocyte Count 0.54 k/cumm (0.11-0.7); Absolute Neutrophil Count 2.22 k/cumm (1.2-6.7); Basophils % 0.6; Eosinophils % 1.8; HCT 39.9 % (36.0-46.0); Immature Grans % 0.2; Lymphocytes % 43.2; Mean Corp. HGB Concentration 35.1 g/dL (32.0-36.0); Mean Corpuscular Hemoglobin 30.8 pg (27.0-33.0); Mean Corpuscular Volume 87.7 fL (80-95); Mean Platelet Volume 10.1 fL (8.0-11.0); Monocytes % 10.6; Neutrophils % 43.6; Platelet Count 324 x1000/uL (130-400); RBC 4.55 m/cumm (4.00-5.20); RBC Distribution Width 12.1 % (11.7-14.6); White Blood Cell Count 5.09 k/cumm (4.4-10.8)
[2018-07-23 13:01] LABS: TSH (W/Ref FT4) 1.45 uIU/mL (0.358-3.74)
[2018-07-23 13:22] LABS: ESR 12 MM/HR (0-20)
== END 2018-07-23 11:08 ==
PROVIDERS: PCP Family Medicine; Visit Provider Internal Medicine
DX: M76.61 Achilles tendinitis, right leg (principal); M76.62 Achilles tendinitis, left leg; J40 Bronchitis, not specified as acute or chronic
CPT/HCPCS: 36415; 85652; 84443; 85025; 86140

== ENCOUNTER 2018-07-26 16:46 | Emergency (ER) | payer MEDICAID, SELFPAY ==
[2018-07-26 16:52] VITALS: BP 125/67; PULSE 81; RESP 16; TEMP 36.8; O2SAT 98
--- NOTE | 2018-07-26 17:12 | W.ED.GENAD ---
Discharge Plan Disposition Patient Disposition: HOME Condition: Good Discharge Details Chief Complaint: EarProblem Clinical Impression: URI (upper respiratory infection) Primary Care Provider: Joseph Syed ED Provider: Johny Rahman Home Meds and New Rx's Prescriptions: New amoxicillin 500 mg capsule 500 mg PO TID Qty: 30 RF: 0 Continue cholecalciferol (vitamin D3) [Vitamin D3] 2,000 UNIT capsule 4,000 unit PO DAILY RF: 0 ibuprofen 400 MG tablet 400 mg PO QID Qty: 60 RF: 2 Discontinued sulfamethoxazole-trimethoprim [Bactrim] 400-80 mg tablet 1 tab PO BID Qty: 14 RF: 1 Discharge Instructions Additional Instructions: If your ear still hurts in a day start taking the amoxicillin If symptoms continue this week see your primary care provider take 1000mg tylenol and 600mg ibuprofen every 6 hours for pain as needed if you have difficulty breathing, high fevers or severe worsening of pain return to the emergency department for reevaluation Medical Decision Making Patient comes in with few days of left ear pain and feeling of anxiety. She was treated for pna per pt with a z pack a week ago and finished it and her cough improved but then devloped ear blocking, saw her pcp who prescribed bactrim. She has taken 4 doses of this and states since starting it she has felt anxious and can't sleep so came here for reeval. Her right tm is normal in appearance and both external mastoid exam and auditory canal bilateral. The left tm is red and bulging. She does note intermittent left lateral chest acheness when she coughs that is reproducible. No radiation and no pain with exertion, doesn't sound typical of acs, heart score is 0, do not feel workup indicated at this time. Wells low and perc negative so do not feel pe workup indicated. Normal vascular exam so doubt dissection. I am going to have her stop the bactrim and give her amoxicillin but advised only to fill it if still in pain in a day, advised f/u with pcp this week if not better and return precautions given Differential Diagnosis aom, otitis externa HPI General Mode of arrival: ambulatory. Date/Time Provider Initiated Documentation: 07/26/18 16:57. Limitations to Documentation: no limitations. Information obtained by: patient. History of Present Illness 33 year old F presents to the emergency department with the chief complaint of left ear pain, described as mild, with intensity rated at 3. Quality is described as aching, Patient started experiencing this day(s) (3) and it has been constant. No relieving factors improve symptom(s), No exacerbating factors reported . Related Data Home Medications Medication Instructions Recorded Confirmed cholecalciferol (vitamin D3) 4,000 unit PO DAILY 04/12/17 07/26/18 [Vitamin D3] ibuprofen 400 mg PO QID #60 tab-cap 04/30/18 07/26/18 amoxicillin 500 mg PO TID #30 cap 07/26/18 Previous Rx's Medication Instructions Recorded ibuprofen 400 mg PO QID #60 tab-cap 04/30/18 amoxicillin 500 mg PO TID #30 cap 07/26/18 Allergies Allergy/AdvReac Type Severity Reaction Status Date / Time metronidazole [From Flagyl] Allergy Intermediate Skin Rash Unverified 07/26/18 16:58 prednisone AdvReac Intermediate Agitation, Verified 07/26/18 16:58 hyperactivity,palpitations General Stated Complaint: EarProblem ANITRA: 3 Review of Systems Review of Systems All systems reviewed & are unremarkable except as noted in HPI and below Constitutional Denies chills, Denies fever(s) and Denies weakness ENT Denies change in voice Cardiovascular Denies dyspnea Respiratory Denies dyspnea Gastrointestinal Denies abdominal pain, Denies nausea and Denies vomiting Genitourinary Denies dysuria Musculoskeletal Denies joint swelling Integumentary/Breasts Denies rash Neurologic Denies weakness Psychiatric Denies depression [facility] Medical History Bacterial vaginosis Contraception Disease of sebaceous glands Social History (Reviewed 07/20/18 @ 01:48 EDT by Errol Pacheco MD) Smoking/Tobacco Use Status: Former Tobacco Use Surgical History Excision, Lesion (04/09/17) Exam Const General: no acute distress Orientation: alert [facility] Head: normal to inspection Ears: external ears normal General nose exam: external nose normal Mouth: moist mucous membranes Eyes General: appearance normal, both eyes and all related structures Neck Neck: normal visual inspection Resp Effort & Inspection: normal respiratory effort and able to speak in complete sentences Cardio Rate: regular rate Skin General skin exam: no rashes or lesions noted Neuro General: alert and oriented x3 Extrem General: normal to inspection Psych Mental Status: mental status grossly normal Course Vital Signs Temperature 36.8 C 07/26/18 16:52 Pulse 81 07/26/18 16:52 Respiratory Rate 16 07/26/18 16:52 Blood Pressure 125/67 07/26/18 16:52 Pulse Oximetry 98 07/26/18 16:52 Temperature 36.8 C 07/26/18 16:52 Temperature Source Temporal Artery Scan 07/26/18 16:52 Pulse 81 07/26/18 16:52 Respiratory Rate 16 07/26/18 16:52 Respiratory Effort Non-Labored 07/26/18 16:56 Blood Pressure 125/67 07/26/18 16:52 Blood Pressure Position Sitting 07/26/18 16:52 Pulse Oximetry 98 07/26/18 16:52 Oxygen Delivery Method Room Air 07/26/18 16:52 Oxygen Flow Rate 0 07/26/18 16:52 Pain Level 5 07/26/18 16:52
--- NOTE | 2018-07-26 17:20 | ED.GENADUL_ITS ---
Discharge Plan Disposition Patient Disposition: HOME Condition: Good Discharge Details Chief Complaint: EarProblem Clinical Impression: URI (upper respiratory infection) Primary Care Provider: Joseph Syed ED Provider: Johny Rahman Home Meds and New Rx's Prescriptions: New amoxicillin 500 mg capsule 500 mg PO TID Qty: 30 RF: 0 Continue cholecalciferol (vitamin D3) [Vitamin D3] 2,000 UNIT capsule 4,000 unit PO DAILY RF: 0 ibuprofen 400 MG tablet 400 mg PO QID Qty: 60 RF: 2 Discontinued sulfamethoxazole-trimethoprim [Bactrim] 400-80 mg tablet 1 tab PO BID Qty: 14 RF: 1 Discharge Instructions Additional Instructions: If your ear still hurts in a day start taking the amoxicillin If symptoms continue this week see your primary care provider take 1000mg tylenol and 600mg ibuprofen every 6 hours for pain as needed if you have difficulty breathing, high fevers or severe worsening of pain return to the emergency department for reevaluation Medical Decision Making Patient comes in with few days of left ear pain and feeling of anxiety. She was treated for pna per pt with a z pack a week ago and finished it and her cough improved but then devloped ear blocking, saw her pcp who prescribed bactrim. She has taken 4 doses of this and states since starting it she has felt anxious and can't sleep so came here for reeval. Her right tm is normal in appearance and both external mastoid exam and auditory canal bilateral. The left tm is red and bulging. She does note intermittent left lateral chest acheness when she coughs that is reproducible. No radiation and no pain with exertion, doesn't sound typical of acs, heart score is 0, do not feel workup indicated at this time. Wells low and perc negative so do not feel pe workup indicated. Normal vascular exam so doubt dissection. I am going to have her stop the bactrim and give her amoxicillin but advised only to fill it if still in pain in a day, advised f/u with pcp this week if not better and return precautions given Differential Diagnosis aom, otitis externa HPI General Mode of arrival: ambulatory . Date/Time Provider Initiated Documentation: 07/26/18 16:57 . Limitations to Documentation: no limitations . Information obtained by: patient . History of Present Illness 33 year old F presents to the emergency department with the chief complaint of left ear pain, described as mild, with intensity rated at 3. Quality is described as aching, Patient started experiencing this day(s) (3) and it has been constant. No relieving factors improve symptom(s), No exacerbating factors reported . Related Data Home Medications Medication Instructions Recorded Confirmed cholecalciferol (vitamin D3) 4,000 unit PO DAILY 04/12/17 07/26/18 [Vitamin D3] ibuprofen 400 mg PO QID #60 tab-cap 04/30/18 07/26/18 amoxicillin 500 mg PO TID #30 cap 07/26/18 Previous Rx's Medication Instructions Recorded ibuprofen 400 mg PO QID #60 tab-cap 04/30/18 amoxicillin 500 mg PO TID #30 cap 07/26/18 Allergies Allergy/AdvReac Type Severity Reaction Status Date / Time metronidazole [From Flagyl] Allergy Intermediate Skin Rash Unverified 07/26/18 16:58 prednisone AdvReac Intermediate Agitation, Verified 07/26/18 16:58 hyperactivity,palpitations General Stated Complaint: EarProblem ANITRA: 3 Review of Systems Review of Systems All systems reviewed & are unremarkable except as noted in HPI and below Constitutional Denies chills, Denies fever(s) and Denies weakness ENT Denies change in voice Cardiovascular Denies dyspnea Respiratory Denies dyspnea Gastrointestinal Denies abdominal pain, Denies nausea and Denies vomiting Genitourinary Denies dysuria Musculoskeletal Denies joint swelling Integumentary/Breasts Denies rash Neurologic Denies weakness Psychiatric Denies depression [facility] Medical History Bacterial vaginosis Contraception Disease of sebaceous glands Social History (Reviewed 07/20/18 @ 01:48 EDT by Errol Pacheco MD) Smoking/Tobacco Use Status: Former Tobacco Use Surgical History Excision, Lesion (04/09/17) Exam Const General: no acute distress Orientation: alert [facility] Head: normal to inspection Ears: external ears normal General nose exam: external nose normal Mouth: moist mucous membranes Eyes General: appearance normal, both eyes and all related structures Neck Neck: normal visual inspection Resp Effort & Inspection: normal respiratory effort and able to speak in complete sentences Cardio Rate: regular rate Skin General skin exam: no rashes or lesions noted Neuro General: alert and oriented x3 Extrem General: normal to inspection Psych Mental Status: mental status grossly normal Course Vital Signs Temperature 36.8 C 07/26/18 16:52 Pulse 81 07/26/18 16:52 Respiratory Rate 16 07/26/18 16:52 Blood Pressure 125/67 07/26/18 16:52 Pulse Oximetry 98 07/26/18 16:52 Temperature 36.8 C 07/26/18 16:52 Temperature Source Temporal Artery Scan 07/26/18 16:52 Pulse 81 07/26/18 16:52 Respiratory Rate 16 07/26/18 16:52 Respiratory Effort Non-Labored 07/26/18 16:56 Blood Pressure 125/67 07/26/18 16:52 Blood Pressure Position Sitting 07/26/18 16:52 Pulse Oximetry 98 07/26/18 16:52 Oxygen Delivery Method Room Air 07/26/18 16:52 Oxygen Flow Rate 0 07/26/18 16:52 Pain Level 5 07/26/18 16:52
== END 2018-07-26 17:26 | disposition home or self-care (01) ==
PROVIDERS: Emergency Provider Emergency Medicine; PCP Family Medicine
DX: J06.9 Acute upper respiratory infection, unspecified (principal)
CPT/HCPCS: 99283

== ENCOUNTER 2018-08-18 16:43 | Outpatient (CLI) | payer MEDICAID, SELFPAY ==
[2018-08-18 18:53] LABS: Vitamin D 25 Total 27.9 ng/ml (30-100)
[2018-08-20 10:17] LABS: Hepatitis B Surface Ag Negative (NEGAT)
[2018-08-20 10:28] LABS: HIV-1/2 Ag & Ab Screen Negative (NEGAT); Hepatitis C Ab w Rflx HCV PCR Negative (NEGAT)
[2018-08-20 12:37] LABS: Syphilis Serology (RPR) Negative (Negative)
== END 2018-08-18 17:03 ==
PROVIDERS: Nurse Practitioner Women's Health; PCP Family Medicine; Visit Provider Family Medicine
DX: Z11.3 Encounter for screening for infections with a predominantly sexual mode of transmission (principal); Z11.59 Encounter for screening for other viral diseases; Z11.4 Encounter for screening for human immunodeficiency virus [HIV]; Z13.21 Encounter for screening for nutritional disorder
CPT/HCPCS: 36415; 82306; 86803; 87340; 87389; 86592

== ENCOUNTER 2020-05-04 08:37 | Emergency (ER) | payer MEDICAID, SELFPAY ==
[2020-05-04 08:45] VITALS: BP 109/85; PULSE 71; RESP 16; TEMP 36.3; O2SAT 98
--- NOTE | 2020-05-04 08:52 | W.ED.GENAD ---
Discharge Plan Disposition Patient Disposition: HOME Condition: Stable Discharge Details Chief Complaint: Sorethroat Clinical Impression: Streptococcal sore throat Primary Care Provider: Joseph Syed ED Provider: Essie Sorto Home Meds and New Rx's Prescriptions: New amoxicillin 500 mg capsule 500 mg PO BID 10 Days Qty: 20 RF: 0 No Action albuterol sulfate [Ventolin HFA] 90 mcg/actuation HFA aerosol inhaler 1 - 2 puff IH Q4H PRN (Reason: shortness of breath or wheezing) Qty: 8.5 RF: 0 cholecalciferol (vitamin D3) [Vitamin D3] 2,000 UNIT capsule 4,000 unit PO DAILY RF: 0 ibuprofen 400 MG tablet 400 mg PO QID Qty: 60 RF: 2 Discharge Instructions Instructions: Strep Throat (ED) Additional Instructions: Follow up with primary care provider in 3-5 days. Return to ED sooner if any worsening or concerns. Increase oral fluids. Please take Tylenol or Ibuprofen with food every 4-6 hours as needed for pain and swelling. Gargle with warm salt water up to 3 times a day as needed. Take antibiotic as prescribed Referrals: Joseph Syed [Primary Care Provider] - Medical Decision Making Rapid strep ordered and is in process at this time. Rapid strep is positive given option for injection versus 10 days of antibiotics patient opted for oral antibiotics. Prescription for amoxicillin 500 mg twice a day x10 days prescribed. Discussed strict return instructions, verbalized understanding. Instructed to gargle with warm salt water 3 times a day as needed. Patient verbalized understanding. This text was generated using [employer] dictation system, please disregard any oddities of phrase or misspellings. HPI General Mode of arrival: ambulatory. Date/Time Provider Initiated Documentation: 05/04/20 08:51. Limitations to Documentation: no limitations. Information obtained by: patient. HPI Narrative: 35-year-old female presents to the ER with 3 days of sore throat and left ear pain. She is concerned for strep throat since she has had this in the past. Denies any other symptoms including nausea vomiting diarrhea abdominal pain or any other concerns. She denies cough. She did take Tylenol last night but nothing this morning prior to arrival. Denies any sick contacts. She describes the pain as aching, sharp and constant which is getting worse. Related Data Home Medications Medication Instructions Recorded Confirmed cholecalciferol (vitamin D3) 4,000 unit PO DAILY 04/12/17 06/16/19 [Vitamin D3] ibuprofen 400 mg PO QID #60 tab-cap 04/30/18 06/16/19 albuterol sulfate 90 mcg/actuation 1 - 2 puff IH Q4H PRN #8.5 gm 06/16/19 06/16/19 aerosol inhaler amoxicillin 500 mg PO BID 10 Days #20 cap 05/04/20 Previous Rx's Medication Instructions Recorded ibuprofen 400 mg PO QID #60 tab-cap 04/30/18 albuterol sulfate 90 mcg/actuation 1 - 2 puff IH Q4H PRN #8.5 gm 06/16/19 aerosol inhaler amoxicillin 500 mg PO BID 10 Days #20 cap 05/04/20 Allergies Allergy/AdvReac Type Severity Reaction Status Date / Time metronidazole [From Flagyl] Allergy Intermediate Skin Rash Unverified 05/04/20 09:21 prednisone AdvReac Intermediate Agitation, Verified 05/04/20 09:21 hyperactivity,palpitations General ANITRA: 3 Review of Systems Narrative: Constitutional: Negative for weight loss, alert and oriented, well groomed, normal body habitus, appears comfortable. HEENT: Denies trauma, headaches, blurry vision, nasal discharge, positive sore throat, no trouble swallowing. Chest: Denies chest pain, palpitations, irregular rhythm, hypertension. Respiratory: Denies Shortness of breath, cough, hemoptysis. GI: Denies abdominal pain, nausea, vomiting, diarrhea, constipation. [facility] Medical History Bacterial vaginosis 2012, 2013 Contraception Nuva ring - 2013 pt counseled regarding Nexplanon. 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 Appears stated age. Normal body habitus. Head: Normocephalic, no trauma. Eyes: Pupils PERRLA, Red reflex noted, EOM's intact. Eyelids symmetrical without lesions, discharge, or swelling. ENT: Bilateral TM's WNL, External ear normal to inspection, no mastoid TTP, swelling, or erythema, Nasal turbinates WNL, no nasal discharge. Normal dentition, Posterior pharynx erythemic, no excessive exudate. Tonsils are 2+ bilaterally. Chest: RRR, Normal S1, S2, distal pulses intact. Resp: Lungs clear to auscultation bilaterally, no wheezes, rales, or rhonchi. Musculoskeletal: Normal gait, 5/5 strength to all four extremities. Skin: No suspicious rashes or lesions. Capillary refill less than 2 sec.
[2020-05-04] MEDS: Ibuprofen 400 MG TAB PO (09:28)
[2020-05-04] MEDS: Amoxicillin 500 MG CAP PO (09:28)
== END 2020-05-04 09:29 | disposition home or self-care (01) ==
PROVIDERS: Emergency Provider Registered Nurse Emergency; PCP Family Medicine
DX: J02.0 Streptococcal pharyngitis (principal)
CPT/HCPCS: 87880; 99283

== ENCOUNTER 2020-06-14 11:28 | Outpatient (CLI) | payer MEDICAID, SELFPAY ==
[2020-06-16 22:09] LABS: Patient Race White; SARS-CoV-2 RNA Undetected (Undetected); SARS-CoV-2 Specimen Source Nasopharynx
== END 2020-06-14 11:48 ==
PROVIDERS: PCP Family Medicine; Visit Provider Family Medicine
DX: Z20.828 Contact with and (suspected) exposure to other viral communicable diseases (principal)
CPT/HCPCS: U0003

== ENCOUNTER 2021-01-30 03:24 | Outpatient (CLI) | payer MEDICAID, SELFPAY ==
[2021-01-30 18:43] LABS: Vitamin D 25 Total 18.1 ng/mL (30-100)
[2021-02-01 10:22] LABS: HIV-1/2 Ag & Ab Screen Negative (Negative)
[2021-02-01 10:27] LABS: Hepatitis C Ab w Rflx HCV PCR Negative (Negative)
== END 2021-01-30 03:25 | disposition home or self-care (01) ==
LOC: LBO 03:24
PROVIDERS: PCP Family Medicine; Visit Provider Obstetrics & Gynecology
DX: Z11.3 Encounter for screening for infections with a predominantly sexual mode of transmission (principal); Z11.4 Encounter for screening for human immunodeficiency virus [HIV]; Z11.59 Encounter for screening for other viral diseases; E55.9 Vitamin D deficiency, unspecified
CPT/HCPCS: 36415; 82306; 86803; 87389

== ENCOUNTER 2021-03-22 11:18 | Outpatient (REF) | payer MEDICAID, SELFPAY ==
[2021-03-24 11:50] LABS: COVID-19 RT-PCR UVMMC Result Negative (Negative)
== END 2021-03-22 11:19 | disposition home or self-care (01) ==
LOC: NCHCN 11:18
PROVIDERS: PCP Family Medicine; Visit Provider Physician Assistant Medical
DX: J06.9 Acute upper respiratory infection, unspecified (principal); Z20.822 Contact with and (suspected) exposure to COVID-19
CPT/HCPCS: U0003

== ENCOUNTER 2021-03-29 14:18 | Emergency (ER) | payer MEDICAID, SELFPAY ==
[2021-03-29 14:22] VITALS: BP 114/65; PULSE 78; RESP 18; TEMP 36.6; O2SAT 97
--- NOTE | 2021-03-29 15:21 | ED.GENADUL_ITS ---
Discharge Plan Disposition Patient Disposition: HOME Condition: Good Discharge Details Clinical Impression: Lumbar back pain, Acute pain of right knee Primary Care Provider: Joseph Syed ED Provider: Anne Luna Home Meds and New Rx's Prescriptions: New metaxalone [Skelaxin] 800 mg tablet 800 mg PO TID PRNQty: 10 RF: 0 Continued albuterol sulfate [Ventolin HFA] 90 mcg/actuation HFA aerosol inhaler 1 - 2 puff IH Q4H PRN (Reason: shortness of breath or wheezing) Qty: 8.5 RF: 0 cholecalciferol (vitamin D3) 1,250 mcg (50,000 unit) capsule 1,250 mcg PO QWEEK Qty: 6 RF: 0 cholecalciferol (vitamin D3) [Vitamin D3] 2,000 UNIT capsule 4,000 unit PO DAILY RF: 0 ibuprofen 400 MG tablet 400 mg PO QID Qty: 60 RF: 2 Discontinued tizanidine 2 mg tablet 2 mg PO Q8H PRN (Reason: muscle spasticity) Qty: 14 RF: 0 Discharge Instructions Instructions: Low Back Strain (ED), Knee Pain (ED) Additional Instructions: Follow-up with your primary care physician and physical therapy Take ibuprofen 600 mg every 8 hours with food as needed for pain You may take Tylenol 650 mg every 6 hours as needed for discomfort Needed for use of Skelaxin as needed for discomfort Please return earlier if strength or sensation changes, fever, chills, or with any new or worsening complaints Stand Alone Forms: Physical Therapy Referral Discharge Data Discharge Date/Time-TO BE ENTERED AT DEPARTURE: 03/29/21 16:25 Medical Decision Making Patient has an x-ray that does not show acute abnormality of her my review and radiologist interpretation She is discharged home on Skelaxin and will take ibuprofen and Tylenol for pain Should she primary care physician in 3 to 5 days with persistent discomfort She is also given a PT referral Return precautions discussed and patient expressed understanding including need to return with paresthesias groin, strength or sensation changes to extremities, worsening back pain No clinical evidence of cauda equina syndrome No abdominal tenderness No urinary symptoms, low suspicion for UTI, denies chance of Medical Records Medical records reviewed: Yes I reviewed the patient's medical records. HPI General Mode of arrival: ambulatory . Date/Time Provider Initiated Documentation: 03/29/21 14:33 . Limitations to Documentation: no limitations . Information obtained by: patient . HPI Narrative: This 36-year-old female presents with reports of back pain and right knee pain. She denies any fever or chills. She states but she was riding on a swing 3 weeks ago and is wondering if this precipitated her back pain. She states her knee started hurting several days ago. She she denies any calf pain or swelling. She denies any chest pain or shortness of breath. She denies exogenous hormones, recent flights, surgeries, long drives. She denies known history of back pain. Has been taking ibuprofen as needed for discomfort. She states that the pain in her back feels like a tightness and is worse when she first stands up. She denies any paresthesias that are new to her lower extremities, changes in bowel or bladder, history of illicit drug use or history of immunocompromise state. She denies any dysuria or frequency. She denies chance of . Related Data Home Medications Medication Instructions Recorded Confirmed cholecalciferol (vitamin D3) 4,000 unit PO DAILY 04/12/17 03/30/21 [Vitamin D3] ibuprofen 400 mg PO QID #60 tab-cap 04/30/18 03/30/21 albuterol sulfate 90 mcg/actuation 1 - 2 puff IH Q4H PRN #8.5 gm 06/16/19 03/30/21 aerosol inhaler cholecalciferol (vitamin D3) 1,250 1,250 mcg PO QWEEK #6 cap 03/29/21 03/29/21 mcg (50,000 unit) capsule metaxalone [Skelaxin] 800 mg PO TID PRN #10 tab 03/29/21 Previous Rx's Medication Instructions Recorded ibuprofen 400 mg PO QID #60 tab-cap 04/30/18 albuterol sulfate 90 mcg/actuation 1 - 2 puff IH Q4H PRN #8.5 gm 06/16/19 aerosol inhaler cholecalciferol (vitamin D3) 1,250 1,250 mcg PO QWEEK #6 cap 03/29/21 mcg (50,000 unit) capsule metaxalone [Skelaxin] 800 mg PO TID PRN #10 tab 03/29/21 Allergies Allergy/AdvReac Type Severity Reaction Status Date / Time metronidazole [From Flagyl] Allergy Intermediate Skin Rash Verified 03/29/21 14:28 prednisone AdvReac Intermediate Agitation, Verified 03/29/21 14:28 hyperactivity,palpitations General Stated Complaint: Nk/Back Pain ANITRA: 4 Review of Systems All systems reviewed & are unremarkable except as noted in HPI and below PFSH Medical History (Updated 03/29/21 @ 15:49 by ELEANOR Martinez) Bacterial vaginosis 2012, 2013 Contraception Nuva ring - 2013 pt counseled regarding Nexplanon. 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 Surgical History Excision, Lesion (04/09/17) Social History Smoking/Tobacco Use Status: Former Tobacco Use Smoking risk assessment performed?: Yes Alcohol Intake: current Alcohol Intake frequency: holidays/special occasions only Drug use: Never Do you feel safe at home: Yes Do you feel safe in your relationship?: Yes Female Reproductive History Menstrual control method: none and other History History 4 Para 3 Hx # Term Pregnancies Multiple births Hx # Pregnancies Ectopic pregnancies AB induced Hx Number of Living Children AB spontaneous 1 Exam Const General: cooperative and no acute distress Chest Chest: normal inspection of the chest Resp Effort & Inspection: normal respiratory effort Cardio Other: Distal pulses intact Back/Spine/Pelvis Back: no CVA tenderness Other: Mild paraspinal tenderness to L4-L5 region Neuro General: patient alert and patient oriented x3 Gait: normal gait Motor: strength 5/5 throughout Sensory Exam: no sensory deficits noted Other: neg slr Extrem Other: distal pulses intact Course Vital Signs Vital signs: Vital Signs Temperature 36.6 C 03/29/21 14:22 Pulse 78 03/29/21 14:22 Respiratory Rate 18 03/29/21 14:22 Blood Pressure 114/65 03/29/21 14:22 Pulse Oximetry 97 03/29/21 14:22 Temperature 36.6 C 03/29/21 14:22 Temperature Source Temporal Artery Scan 03/29/21 14:22 Pulse 78 03/29/21 14:22 Respiratory Rate 18 03/29/21 14:22 Respiratory Effort Non-Labored 03/29/21 14:27 Blood Pressure 114/65 03/29/21 14:22 Blood Pressure Position Sitting 03/29/21 14:22 Pulse Oximetry 97 03/29/21 14:22 Oxygen Delivery Method Room Air 03/29/21 14:22 Oxygen Flow Rate 0 03/29/21 14:22 Pain Level 3 03/29/21 14:22
--- NOTE | 2021-03-29 15:30 | DI.RAD_ITS ---
Exam(s) XR LUMBAR SPINE COMPLETE EXAM: XR LUMBAR SPINE COMPLETE CLINICAL HISTORY: pain lspine, no trauma. TECHNIQUE: 2D digital imaging was performed. COMPARISON: No exams were available for comparison FINDINGS: There are 5 vertebrae of lumbar configuration. There is no evidence of fracture or listhesis nor par s defects. All the disc spaces in the lumbar spine exhibit normal height. Facet joints appear unrem arkable. Sacroiliac joints appear unremarkable. There is no scoliosis. No osseous lesions on bone density is normal. IMPRESSION: DATA REPOSITORY: RADIATION DOSE DELIVERED:
--- NOTE | 2021-03-29 15:30 | DI.RAD_ITS ---
Exam(s) XR KNEE RT 3V AP,LAT,MARTINEZ EXAM: XR KNEE RT 3V AP,LAT,MARTINEZ CLINICAL HISTORY: right knee pain. TECHNIQUE: 2D digital imaging was performed. COMPARISON: No exams were available for comparison FINDINGS: There is no evidence of fracture nor prominent joint effusion Bone density is normal. No osseous lesions. No degenerative changes. No obvious osteochondral defe cts. IMPRESSION: No significant radiographic findings on these three views of the right knee. DATA REPOSITORY: RADIATION DOSE DELIVERED:
== END 2021-03-29 16:25 | disposition home or self-care (01) ==
PROVIDERS: Emergency Provider Physician Assistant; PCP Family Medicine
DX: M25.561 Pain in right knee (principal); M54.5 Low back pain
CPT/HCPCS: 73562; 99284; 72110; 99283

== ENCOUNTER 2021-10-09 19:13 | Outpatient (REF) | payer MEDICAID, SELFPAY ==
[2021-10-11 10:55] LABS: COVID-19 RT-PCR UVMMC Result Negative (Negative)
== END 2021-10-09 19:14 | disposition home or self-care (01) ==
LOC: LBN 19:13
PROVIDERS: PCP Family Medicine; Visit Provider Family Medicine
DX: Z20.822 Contact with and (suspected) exposure to COVID-19 (principal)
CPT/HCPCS: U0003

== ENCOUNTER 2021-10-25 13:30 | Emergency (ER) | payer MEDICAID, SELFPAY ==
[2021-10-25] VITALS (8 sets, daily range): BP systolic 112; BP diastolic 57; PULSE 69–83; RESP 12–18; TEMP 36.7; O2SAT 98–100
--- NOTE | 2021-10-25 13:30 | RT.EKG_ITS ---
APPROVED REPORT Exam: Resting ECG Reason for Exam: CHEST PAIN Patient Location: E HR:68 bpm ECG Measurements Heart Rate 68 AXIS CA 141 P 79 QRSd 78 QRS 59 QT 381 T 22 QTc 405 Conclusion Sinus rhythm...normal P axis, V-rate 60- 99 I have reviewed and interpreted ECG and agree with software generated interpretation.
[2021-10-25 14:20] LABS: Abs Immature Grans 0.02 10^3/uL (0.0-0.06); Absolute Basophil Count 0.03 10^3/uL (0.0-0.2); Absolute Eosinophil Count 0.08 10^3/uL (0.0-0.7); Absolute Lymphocyte Count 2.01 10^3/uL (1.2-3.4); Absolute Monocyte Count 0.49 10^3/uL (0.1-0.8); Absolute Neutrophil Count 4.11 10^3/uL (1.2-6.7); Basophils % 0.4; Eosinophils % 1.2; HCT 39.6 % (36.0-46.0); HGB 13.1 g/dL (11.2-15.7); Immature Grans % 0.3; Lymphocytes % 29.8; MCH 29.2 pg (27.0-33.0); MCHC 33.1 % (32.0-36.0); MCV 88.2 fL (80-95); MPV 10.1 fL (8.0-11.0); Monocytes % 7.3; Nucleated RBC 0 %; Platelet Count 303 10^3/uL (130-400); RBC 4.49 10^6/uL (3.93-5.22); RDW 11.9 % (11.7-14.6); RDW-SD 38.3 fL; WBC 6.74 10^3/uL (4.4-10.8)
[2021-10-25 14:36] LABS: ALT 24 U/L (14-59); AST 18 U/L (15-37); Alkaline Phosphatase 85 U/L (46-116); Anion Gap 7.5 mmol/L (3-11); BUN 13 mg/dL (7-18); Bilirubin, Total 0.4 mg/dL (0.2-1.0); CO2 26.5 mmol/L (21.0-32.0); CREATININE 0.6 mg/dL (0.55-1.02); Calcium 8.9 mg/dL (8.5-10.1); Chloride 103 mmol/L (98-107); Glucose 107 mg/dL (74-106); HCG Qual (Serum) Negative; Potassium 3.5 mmol/L (3.5-5.1); Sodium 137 mmol/L (136-145); Total Protein 7.6 g/dL (6.4-8.2); Troponin I < 50 ng/L (<or=60)
--- NOTE | 2021-10-25 14:37 | W.ED.GENAD ---
Discharge Plan Disposition Patient Disposition: HOME Condition: Good Discharge Details Clinical Impression: Pleurisy, COVID-19 Primary Care Provider: Ashly Wadsworth ED Provider: Anne Luna Home Meds and New Rx's Prescriptions: New albuterol sulfate 90 mcg/actuation HFA aerosol inhaler 1 inh inhalation ONCE Qty: 6.7 0RF Continued cholecalciferol (vitamin D3) 1,250 mcg (50,000 unit) capsule 1,250 mcg PO QWEEK Qty: 6 0RF cholecalciferol (vitamin D3) [Vitamin D3] 2,000 UNIT capsule 4,000 unit PO DAILY 0RF ibuprofen 400 MG tablet 400 mg PO QID Qty: 60 2RF ciprofloxacin HCl 0.2 % dropperette 5 drp otic (ear) Q12H Qty: 14 0RF albuterol sulfate [Ventolin HFA] 90 mcg/actuation HFA aerosol inhaler 1 - 2 puff IH Q4H PRN (Reason: shortness of breath or wheezing) Qty: 8.5 0RF metaxalone [Skelaxin] 800 mg tablet 800 mg PO TID PRNQty: 10 0RF Discharge Instructions Instructions: Pleurisy (ED), Viral Syndrome (ED) Additional Instructions: Take ibuprofen as needed for pain Use your albuterol inhaler with spacer cough, wheeze, shortness of breath Please return earlier should you have new or worsening complaints Stand Alone Forms: Work Release Referrals: Ashly Wadsworth MD [Primary Care Provider] - Discharge Data Discharge Date/Time-TO BE ENTERED AT DEPARTURE: 10/25/21 16:22 Medical Decision Making Patient appears well, her vitals are stable She is young and healthy and has had shortness of breath and some pleuritic chest pain for the past 2 days No indication for repeat troponin D-dimer is 220 and negative EKG without acute abnormality Pending chest x-ray at this time, review does not show acute abnormality per radiology interpretation in my review Did consider a short course of steroids, however patient with adverse effects while taking these will be deferred Patient will be given an albuterol inhaler with spacer Given the threshold to return should you have new or worsening complaint Note supplied Medical Records Medical records reviewed: Yes I reviewed the patient's medical records. Lab Data Lab results reviewed: Yes I reviewed the patient's lab results. HPI General Mode of arrival: ambulatory. Date/Time Provider Initiated Documentation: 10/25/21 13:33. Limitations to Documentation: no limitations. Information obtained by: patient. HPI Narrative: This 36-year-old female with history of bronchitis presents with report of pleuritic chest pain and shortness of breath for the past 2 days. She was diagnosed with Covid 13 days ago. She denies fever since then. She was very much symptomatically improved until 2 days prior to arrival today. She did this started when she returned to work. She denies any constant chest discomfort. She states the pain is exacerbated with deep breathing. Denies any calf pain or swelling. Is not Covid vaccinated. Denies any hemoptysis. Denies prior history of coagulopathy. Denies any exogenous hormones. Related Data Home Medications Medication Instructions Recorded Confirmed cholecalciferol (vitamin D3) 50 4,000 unit PO DAILY 04/12/17 10/25/21 mcg (2,000 unit) capsule (Vitamin D3) ibuprofen 400 mg tablet 400 mg PO QID #60 tab-cap 04/30/18 10/25/21 cholecalciferol (vitamin D3) 1,250 1,250 mcg PO QWEEK #6 cap 03/29/21 10/25/21 mcg (50,000 unit) capsule metaxalone 800 mg tablet (Skelaxin) 800 mg PO TID PRN #10 tab 03/29/21 10/25/21 ciprofloxacin HCl 0.2 % ear drops 5 drp OTIC (EAR) Q12H #14 ea 06/21/21 10/25/21 in a dropperette albuterol sulfate 90 mcg/actuation 1 - 2 puff IH Q4H PRN #8.5 gm 10/11/21 10/25/21 aerosol inhaler (Ventolin HFA) albuterol sulfate 90 mcg/actuation 1 inh INHALATION ONCE #6.7 g 10/25/21 aerosol inhaler Previous Rx's Medication Instructions Recorded ibuprofen 400 mg tablet 400 mg PO QID #60 tab-cap 04/30/18 cholecalciferol (vitamin D3) 1,250 1,250 mcg PO QWEEK #6 cap 03/29/21 mcg (50,000 unit) capsule metaxalone 800 mg tablet (Skelaxin) 800 mg PO TID PRN #10 tab 03/29/21 ciprofloxacin HCl 0.2 % ear drops 5 drp OTIC (EAR) Q12H #14 ea 06/21/21 in a dropperette albuterol sulfate 90 mcg/actuation 1 - 2 puff IH Q4H PRN #8.5 gm 10/11/21 aerosol inhaler (Ventolin HFA) albuterol sulfate 90 mcg/actuation 1 inh INHALATION ONCE #6.7 g 10/25/21 aerosol inhaler Allergies Allergy/AdvReac Type Severity Reaction Status Date / Time metronidazole [From Flagyl] Allergy Intermediate Skin Rash Verified 10/25/21 13:41 prednisone AdvReac Intermediate Agitation, Verified 10/25/21 13:41 hyperactivity,palpitations General Stated Complaint: Chest Pain ANITRA: 2 Review of Systems All systems reviewed & are unremarkable except as noted in HPI and below PFSH All Active Problems (Updated 10/25/21 @ 16:00 by ELEANOR Martinez) Pleurisy (Acute) COVID-19 (Acute) COVID-19 (Acute ~10/12/21) Per antigen test x 2, 10/11 and 10/12/21. Neg pcr 10/09/21. Lumbar back pain (Acute) Acute pain of right knee (Acute) Bronchitis (Acute) Finish antibiotic. OTC cough medicine. Call if not better. 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 Made referral to [facility]. They may want to do their own xrays so will not order. I did check old med lists and did not see that she has had Cipro/Levaquin or related meds associated with ligamentous problems. Gave her a copy to take. Acute viral syndrome (Acute) Medical History (Updated 10/25/21 @ 16:00 by ELEANOR Martinez) Bacterial vaginosis 2012, 2014 Contraception Nuva ring - 2014 pt counseled regarding Nexplanon. 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 Surgical History Excision, Lesion (04/09/17) Social History Smoking/Tobacco Use Status: Former Tobacco Use Smoking risk assessment performed?: Yes Alcohol Intake: current Alcohol Intake frequency: holidays/special occasions only Drug use: Never Do you feel safe at home: Yes Do you feel safe in your relationship?: Yes Female Reproductive History Menstrual control method: none and other History History 4 Para 3 Hx # Term Pregnancies Multiple births Hx # Pregnancies Ectopic pregnancies AB induced Hx Number of Living Children AB spontaneous 1 Exam Const General: cooperative and no acute distress Eyes Pupils: PERRL Chest Chest: normal inspection of the chest Resp Effort & Inspection: normal respiratory effort Auscultation: clear to auscultation bilaterally Cardio Rate: regular rate Rhythm: regular rhythm Skin General skin exam: no rashes or lesions noted Neuro General: patient alert and patient oriented x3 Extrem Other: No calf tenderness or swelling appreciated Distal pulses intact Course Vital Signs Vital signs: Vital Signs Temperature 36.7 C 10/25/21 13:37 Pulse 69 10/25/21 13:37 Respiratory Rate 16 10/25/21 13:37 Blood Pressure 112/57 L 10/25/21 13:37 Pulse Oximetry 99 10/25/21 13:37 Temperature 36.7 C 10/25/21 13:37 Temperature Source Skin 10/25/21 13:37 Pulse 69 10/25/21 13:37 Pulse 82 10/25/21 14:00 Respiratory Rate 12 10/25/21 14:00 Respiratory Effort 10/25/21 13:54 Respiratory Depth Normal 10/25/21 13:54 Respiratory Pattern Normal 10/25/21 13:54 Blood Pressure 112/57 L 10/25/21 13:37 Pulse Oximetry 98 10/25/21 13:50 Oxygen Delivery Method Room Air 10/25/21 13:37 Oxygen Flow Rate 0 10/25/21 13:37 Pain Level 5 10/25/21 13:37 Lab/Test Results Lab/Test Results: Laboratory Tests Range/Units 10/25/21 10/25/21 10/25/21 13:55 13:55 13:55 WBC (4.4-10.8) 10^3/uL 6.74 RBC (3.93-5.22) 10^6/uL 4.49 Hgb (11.2-15.7) g/dL 13.1 Hct (36.0-46.0) % 39.6 MCV (80-95) fL 88.2 MCH (27.0-33.0) pg 29.2 MCHC (32.0-36.0) % 33.1 RDW (11.7-14.6) % 11.9 Plt Count (130-400) 10^3/uL 303 MPV (8.0-11.0) fL 10.1 Immature Gran % 0.3 Neutrophils % 61.0 Lymphocytes % 29.8 Monocytes % 7.3 Eosinophils % 1.2 Basophils % 0.4 Nucleated RBC % % 0 Absolute Neutrophils (1.2-6.7) 10^3/uL 4.11 Absolute Lymphocytes (1.2-3.4) 10^3/uL 2.01 Absolute Monocytes (0.1-0.8) 10^3/uL 0.49 Absolute Eosinophils (0.0-0.7) 10^3/uL 0.08 Absolute Basophils (0.0-0.2) 10^3/uL 0.03 Sodium (136-145) mmol/L 137 Potassium (3.5-5.1) mmol/L 3.5 Chloride (98-107) mmol/L 103 Carbon Dioxide (21.0-32.0) mmol/L 26.5 Anion Gap (3-11) mmol/L 7.5 BUN (7-18) mg/dL 13 Creatinine (0.55-1.02) mg/dL 0.6 Estimated GFR/1.73 m2 (mL/min/1.73m2) >= 60.00 Glucose (74-106) mg/dL 107 H Calcium (8.5-10.1) mg/dL 8.9 Total Bilirubin (0.2-1.0) mg/dL 0.4 AST (15-37) U/L 18 ALT (14-59) U/L 24 Alkaline Phosphatase (46-116) U/L 85 Troponin I (<or=60) ng/L < 50 Total Protein (6.4-8.2) g/dL 7.6 Albumin (3.4-5.0) g/dL 4.0 Serum HCG, Qual Negative
[2021-10-25 15:13] LABS: D-Dimer 220 ng/mlFEU (<500)
--- NOTE | 2021-10-25 15:20 | DI.RAD_ITS ---
Exam(s) XR PORTABLE CHEST AP EXAM: XR PORTABLE CHEST AP CLINICAL HISTORY: shortness. TECHNIQUE: 2D digital imaging was performed. COMPARISON: CR CHEST 2 VIEWS PA,LAT from 11/08/2017 FINDINGS: Heart size is upper normal. The mediastinum is not widened. Lungs are clear. No infiltrates nor obvious pleural effusions. IMPRESSION: No acute pulmonary findings on this single AP portable view of the chest. DATA REPOSITORY: RADIATION DOSE DELIVERED: All CT scans at this facility use at least one of these dose optimization techniques: automated exposure control; mA and/or kV adjustment per patient size (includes targeted e xams where dose is matched to clinical indication); or iterative reconstruction.
== END 2021-10-25 16:22 | disposition home or self-care (01) ==
PROVIDERS: Emergency Provider Physician Assistant; PCP Family Medicine
DX: U07.1 COVID-19 (principal); R09.1 Pleurisy; R07.9 Chest pain, unspecified; R06.02 Shortness of breath; Z28.3 Underimmunization status
CPT/HCPCS: 80053; 93005; 99284; 71045; 84484; 84703; 85025; 85379; 93010

== ENCOUNTER 2021-11-22 11:17 | Emergency (ER) | payer MEDICAID, SELFPAY ==
[2021-11-22 11:21] VITALS: BP 110/71; PULSE 64; RESP 16; TEMP 37; O2SAT 97
[2021-11-22 11:42] LABS: Bilirubin Negative (Negative); Blood Small (Negative); Clarity Clear (Clear); Glucose Negative (Negative); Ketones Negative (Negative); Leukocyte Esterase Negative (Negative); Nitrite Negative (Negative); Specific Gravity >= 1.030 (1.005-1.025); Urobilinogen 0.2 EU/dL (Up TO 0.2)
[2021-11-22 11:48] LABS: Bacteria Rare HPF (Negative); C & S Indicated? No; Casts Negative LPF (Negative); Crystals Negative HPF (Negative); Epithelial Cells Few HPF (Negative); Mucus Moderate (Negative); WBC 0-2 HPF (0-5)
--- NOTE | 2021-11-22 12:13 | ED.GENADUL_ITS ---
Discharge Plan Disposition Patient Disposition: HOME Condition: Good Discharge Details Clinical Impression: Abdominal pain, Abnormal CT of the abdomen Primary Care Provider: Ashly Wadsworth ED Provider: Rosa Duncan Home Meds and New Rx's Prescriptions: Continued cholecalciferol (vitamin D3) 1,250 mcg (50,000 unit) capsule 1,250 mcg PO QWEEK Qty: 6 0RF cholecalciferol (vitamin D3) [Vitamin D3] 2,000 UNIT capsule 4,000 unit PO DAILY 0RF ibuprofen 400 MG tablet 400 mg PO QID Qty: 60 2RF albuterol sulfate [Ventolin HFA] 90 mcg/actuation HFA aerosol inhaler 1 - 2 puff IH Q4H PRN (Reason: shortness of breath or wheezing) Qty: 8.5 0RF Discharge Instructions Instructions: Abdominal Pain (ED), Colitis (ED) Additional Instructions: Please return immediately to the emergency department if you develop any new or worsening symptoms, if your condition does not improve as expected, or if you become otherwise concerned. It is extremely important that you call soon as possible to make an appointment to be seen in follow-up for this visit by your primary care doctor and surgery as we discussed. Referrals: Ashly Wadsworth MD [Primary Care Provider] - Shelly Cano MD [[facility] STAFF PHYSICIAN] - Discharge Data Discharge Date/Time-TO BE ENTERED AT DEPARTURE: 11/22/21 14:26 Medical Decision Making Geovanni Elliott is a 36-year-old woman with a history of asthma, vitamin D deficiency presenting to emergency department with abdominal pain. Patient reports that for the past 11 days she has had left lower quadrant pain. Patient reports that she first noticed pain during intercourse. There was no trauma or or other known inciting event. She reports that pain has been intermittent, but when present seems to be worsening over time. She denies any known modifiers, including position, movement, or eating. Has not had intercourse since onset of pain. Denies pelvic pain, right-sided abdominal pain, or any other pain. Denies fevers, cough, shortness of breath, vomiting, diarrhea, numbness, weakness. Patient reports that at onset of pain she initially felt constipated, though reports that she has had several normal bowel movements and does not feel constipated at this time. She denies any history of similar pain in the past. Denies vaginal discharge. She reports that her period started 2 days ago. Denies recreational drug use, nicotine/tobacco use. Reports occasional alcohol use. Takes ibuprofen regularly, denies other medication. Physical exam shows patient very well and nontoxic-appearing. There is mild left lower quadrant greater than left upper quadrant tenderness to palpation, no right-sided abdominal tenderness, no pelvic tenderness palpation bilaterally. Concern for diverticulitis versus colitis versus less likely pancreatitis versus other.exam/history at this time is not consistent with PID, ovarian torsion, acute aortic pathology, sepsis. Plan for IV placement, IV fluid hydration, screening labs, CT abdomen/pelvis, UA, UPT. Labs reviewed, WBC 8.24, hemoglobin 13.3, creatinine 0.5, anion gap 7.7, glucose 69. UPT negative per nursing, UA shows blood consistent with patient report of current menstruation. CT shows thickening of the descending colon consistent with possible colitis. Patient without recent GI symptoms, unclear significance of the findings, but likely related to pain given location. Patient reports no pain on reassessment. Patient placed on care management list for outpatient follow-up with surgery for possible colonoscopy. I had a discussion with Patient regarding return to emergency department precautions, home care, and importance of outpatient follow-up. Pt verbalizes understanding of the plan and is amenable. Patient discharged to home with clear plan for outpatient follow- up. All questions were answered. Disposition decision was made weighing the risks and benefits of hospitalization versus outpatient treatment, the risk for further decompensation, and the patient's wishes. Medical Records Medical records reviewed: Yes I reviewed the patient's medical records. Imaging Data Radiologic Study: Attestation: I personally reviewed and interpreted this imaging study as follows: Radiologist's impression: EXAM:? CT ABDOMEN ? PELVIS W INDICATION:? LLQ pain. COMPARISON:? No exams were available for comparison TECHNIQUE:? FINDINGS: CT examination of the abdomen and pelvis was performed with a bolus infusion of 100 cc of Omnipaque 350.? Images obtained through the lung bases are unremarkable. The liver is unremarkable in appearance. There is a visible gallstone.? No gallbladder wall thickening or pericholecystic fluid collection, bile ducts are CT normal. Pancreas appears normal. Spleen is unremarkable in appearance. Adrenals appear normal.? The kidneys are unremarkable with no evidence of hydronephrosis, nephrolithiasis, or renal mass..? Urinary bladder unremarkable. Abdominal aorta is of normal diameter and no major vascular abnormality is seen. No abdominal wall hernia. No abdominal or pelvic adenopathy. [employer]IDENT structures appear intact with unremarkable appearance of the ovaries by CT criteria.. Appendix is normal. No evidence of diverticulitis or bowel obstruction. There is question of wall thickening of the colon extending from the distal descending colon to the rectum.? No gross pericolonic fat edema seen.? The findings could represent a mild colitis.? Please correlate clinically. No other focal bowel pathology identified. IMPRESSION: Wall thickening of the distal descending colon extending to the rectum, possible colitis, please correlate clinically.. Lab Data Lab results reviewed: Yes I reviewed the patient's lab results. Labs: Laboratory Tests Range/Units 11/22/21 11/22/21 11/22/21 11:21 11:21 11:34 WBC (4.4-10.8) 10^3/uL 8.24 RBC (3.93-5.22) 10^6/uL 4.50 Hgb (11.2-15.7) g/dL 13.3 Hct (36.0-46.0) % 40.3 MCV (80-95) fL 89.6 MCH (27.0-33.0) pg 29.6 MCHC (32.0-36.0) % 33.0 RDW (11.7-14.6) % 12.2 Plt Count (130-400) 10^3/uL 270 MPV (8.0-11.0) fL 9.4 Immature Gran % 0.2 Neutrophils % 64.1 Lymphocytes % 25.1 Monocytes % 9.0 Eosinophils % 1.1 Basophils % 0.5 Nucleated RBC % % 0 Absolute Neutrophils (1.2-6.7) 10^3/uL 5.28 Absolute Lymphocytes (1.2-3.4) 10^3/uL 2.07 Absolute Monocytes (0.1-0.8) 10^3/uL 0.74 Absolute Eosinophils (0.0-0.7) 10^3/uL 0.09 Absolute Basophils (0.0-0.2) 10^3/uL 0.04 Sodium (136-145) mmol/L 141 Potassium (3.5-5.1) mmol/L 4.1 Chloride (98-107) mmol/L 106 Carbon Dioxide (21.0-32.0) mmol/L 27.3 Anion Gap (3-11) mmol/L 7.7 BUN (7-18) mg/dL 11 Creatinine (0.55-1.02) mg/dL 0.5 L Estimated GFR/1.73 m2 (mL/min/1.73m2) >= 60.00 Glucose (74-106) mg/dL 69 L Calcium (8.5-10.1) mg/dL 9.1 Total Bilirubin (0.2-1.0) mg/dL 0.3 AST (15-37) U/L 15 ALT (14-59) U/L 15 Alkaline Phosphatase (46-116) U/L 72 Total Protein (6.4-8.2) g/dL 7.2 Albumin (3.4-5.0) g/dL 3.8 Lipase (73-393) U/L 140 Urine Color (Yellow) Yellow Urine Clarity (Clear) Clear Urine pH (5-8) 7.0 Ur Specific [place] (1.005-1.025) >= 1.030 H Urine Protein (Negative) mg/dL Negative Urine Ketones (Negative) mg/dL Negative Urine Blood (Negative) Small H Urine Nitrite (Negative) Negative Urine Bilirubin (Negative) Negative Urine Urobilinogen (Up TO 0.2) EU/dL 0.2 Ur Leukocyte Esterase (Negative) Negative Urine RBC (0-2) HPF 5-10 H Urine WBC (0-5) HPF 0-2 Ur Epithelial Cells (Negative) HPF Few Urine Crystals (Negative) HPF Negative Urine Bacteria (Negative) HPF Rare Urine Casts (Negative) LPF Negative Urine Mucus (Negative) Moderate Ur Culture Indicated? No Urine Glucose (Negative) mg/dL Negative HPI General Date/Time Provider Initiated Documentation: 11/22/21 11:31 . Limitations to Documentation: no limitations . Information obtained by: patient, RN notes reviewed and old records reviewed . HPI Narrative: Geovanni Elliott is a 36-year-old woman with a history of asthma, vitamin D deficiency presenting to emergency department with abdominal pain. Patient reports that for the past 11 days she has had left lower quadrant pain. Patient reports that she first noticed pain during intercourse. There was no trauma or or other known inciting event. She reports that pain has been intermittent, but when present seems to be worsening over time. She denies any known modifiers, including position, movement, or eating. Has not had intercourse since onset of pain. Denies pelvic pain, right-sided abdominal pain, or any other pain. Denies fevers, cough, shortness of breath, vomiting, diarrhea, numbness, weakness. Patient reports that at onset of pain she initially felt constipated, though reports that she has had several normal bowel movements and does not feel constipated at this time. She denies any history of similar pain in the past. Denies vaginal discharge. She reports that her period started 2 days ago. Denies recreational drug use, nicotine/tobacco use. Reports occasional alcohol use. Takes ibuprofen regularly, denies other medication. Related Data Home Medications Medication Instructions Recorded Confirmed cholecalciferol (vitamin D3) 50 4,000 unit PO DAILY 04/12/17 11/22/21 mcg (2,000 unit) capsule (Vitamin D3) ibuprofen 400 mg tablet 400 mg PO QID #60 tab-cap 04/30/18 11/22/21 cholecalciferol (vitamin D3) 1,250 1,250 mcg PO QWEEK #6 cap 21 11/22/21 mcg (50,000 unit) capsule albuterol sulfate 90 mcg/actuation 1 - 2 puff IH Q4H PRN #8.5 gm 10/11/21 11/22/21 aerosol inhaler (Ventolin HFA) Previous Rx's Medication Instructions Recorded ibuprofen 400 mg tablet 400 mg PO QID #60 tab-cap 04/30/18 cholecalciferol (vitamin D3) 1,250 1,250 mcg PO QWEEK #6 cap 03/29/21 mcg (50,000 unit) capsule albuterol sulfate 90 mcg/actuation 1 - 2 puff IH Q4H PRN #8.5 gm 10/11/21 aerosol inhaler (Ventolin HFA) Allergies Allergy/AdvReac Type Severity Reaction Status Date / Time metronidazole [From Flagyl] Allergy Intermediate Skin Rash Verified 11/22/21 11:24 prednisone AdvReac Intermediate Agitation, Verified 11/22/21 11:24 hyperactivity,palpitations General Stated Complaint: Abd Prob ANITRA: 3 Review of Systems Narrative: Constitutional: denies fevers Eyes: denies eye pain ENT: denies ear pain, dental pain, sore throat Cardiovascular: denies chest pain Respiratory: denies SOB, cough GI: denies vomiting, diarrhea, reports abdominal pain : denies flank pain, pelvic pain, vaginal discharge, dysuria MSK: denies back pain, neck pain, arthralgias, myalgias Skin: denies rash Neuro: denies headaches, numbness, weakness PFSH All Active Problems (Updated 11/22/21 @ 14:11 by Rosa Duncan MD) Abdominal pain (Acute) Abnormal CT of the abdomen (Acute) Menorrhagia with regular cycle (Acute) Vitamin D deficiency (Acute) COVID-19 (Acute ~10/12/21) Per antigen test x 2, 10/11 and 10/12/21. Neg pcr 10/09/21. Medical History Fibrocystic disease of breast (02/20/13) Family History (Updated 11/01/21 @ 14:15 by Ashly Wadsworth MD) Mother No problems noted. Father No problems noted. Maternal Grandmother Colon cancer Son Down syndrome Social History Smoking/Tobacco Use Status: Former Tobacco Use tobacco type: cigarettes Quit Date: 09/16/11 Pack-years: 10 Smoking risk assessment performed?: Yes Alcohol Intake: current Alcohol Intake frequency: holidays/special occasions only Drug use: Never Substance use type: does not use Household members: children Housing: apartment Number of Children: 4 Education Level: college Details: BA in human services current occupation: Works at [employer] Do you feel safe at home: Yes Do you feel safe in your relationship?: Yes Additional Social history: Enjoys exercise - new [employer] bike; spending time with family. Female Reproductive History Menstrual control method: none and other History History 4 Para 3 Hx # Term Pregnancies Multiple births Hx # Pregnancies Ectopic pregnancies AB induced Hx Number of Living Children AB spontaneous 1 Exam Narrative Exam Narrative: Constitutional: well and [id number], pleasant, conversing normally HENT: head atraumatic/normocephalic/normal inspection, mucous membranes moist Eyes: conjunctiva normal, sclera normal, pupils 3mm b/l Neck: no stridor, normal ROM, trachea midline Resp: normal work of breathing, speaking in full sentences Cardio: normal rate, normal rhythm GI: abdomen soft, left lower quadrant tender to palpation with deep palpation, mild left upper quadrant tenderness to palpation, no suprapubic tenderness to palpation or pelvic tenderness to palpation bilaterally, non-distended Skin: warm, dry, normal color, no rash Neuro: alert, not altered, grossly non-focal, normal tone Ext: no edema. Psych: normal mood, normal affect, normal behavior Course Vital Signs Vital signs: Vital Signs Temperature 37 C 11/22/21 11:21 Pulse 64 11/22/21 11:21 Respiratory Rate 16 11/22/21 11:21 Blood Pressure 110/71 11/22/21 11:21 Pulse Oximetry 97 11/22/21 11:21 Temperature 37 C 11/22/21 11:21 Temperature Source Skin 11/22/21 11:21 Pulse 64 11/22/21 11:21 Respiratory Rate 16 11/22/21 11:21 Respiratory Effort 11/22/21 11:21 Blood Pressure 110/71 11/22/21 11:21 Blood Pressure Position Sitting 11/22/21 11:21 Pulse Oximetry 97 11/22/21 11:21 Oxygen Delivery Method Room Air 11/22/21 11:21 Oxygen Flow Rate 0 11/22/21 11:21 Pain Level 3 11/22/21 11:21 Lab/Test Results Lab/Test Results: Laboratory Tests Range/Units 11/22/21 11:34 Urine Color (Yellow) Yellow Urine Clarity (Clear) Clear Urine pH (5-8) 7.0 Ur Specific [place] (1.005-1.025) >= 1.030 H Urine Protein (Negative) mg/dL Negative Urine Ketones (Negative) mg/dL Negative Urine Blood (Negative) Small H Urine Nitrite (Negative) Negative Urine Bilirubin (Negative) Negative Urine Urobilinogen (Up TO 0.2) EU/dL 0.2 Ur Leukocyte Esterase (Negative) Negative Urine RBC (0-2) HPF 5-10 H Urine WBC (0-5) HPF 0-2 Ur Epithelial Cells (Negative) HPF Few Urine Crystals (Negative) HPF Negative Urine Bacteria (Negative) HPF Rare Urine Casts (Negative) LPF Negative Urine Mucus (Negative) Moderate Ur Culture Indicated? No Urine Glucose (Negative) mg/dL Negative POC- Test(urine) Negative
[2021-11-22 12:25] LABS: Abs Immature Grans 0.02 10^3/uL (0.0-0.06); Absolute Basophil Count 0.04 10^3/uL (0.0-0.2); Absolute Eosinophil Count 0.09 10^3/uL (0.0-0.7); Absolute Lymphocyte Count 2.07 10^3/uL (1.2-3.4); Absolute Monocyte Count 0.74 10^3/uL (0.1-0.8); Absolute Neutrophil Count 5.28 10^3/uL (1.2-6.7); Basophils % 0.5; Eosinophils % 1.1; HCT 40.3 % (36.0-46.0); HGB 13.3 g/dL (11.2-15.7); Immature Grans % 0.2; Lymphocytes % 25.1; MCH 29.6 pg (27.0-33.0); MCV 89.6 fL (80-95); MPV 9.4 fL (8.0-11.0); Neutrophils % 64.1; Nucleated RBC 0 %; Platelet Count 270 10^3/uL (130-400); RDW 12.2 % (11.7-14.6); RDW-SD 40.1 fL; WBC 8.24 10^3/uL (4.4-10.8)
[2021-11-22] MEDS: Normal Saline 1,000 ML 1000 ML IV (12:25)
[2021-11-22 12:40] LABS: ALT 15 U/L (14-59); AST 15 U/L (15-37); Albumin 3.8 g/dL (3.4-5.0); Alkaline Phosphatase 72 U/L (46-116); Anion Gap 7.7 mmol/L (3-11); BUN 11 mg/dL (7-18); Bilirubin, Total 0.3 mg/dL (0.2-1.0); CO2 27.3 mmol/L (21.0-32.0); CREATININE 0.5 mg/dL (0.55-1.02); Calcium 9.1 mg/dL (8.5-10.1); Chloride 106 mmol/L (98-107); Glucose 69 mg/dL (74-106); Lipase 140 U/L (73-393); Potassium 4.1 mmol/L (3.5-5.1); Sodium 141 mmol/L (136-145); Total Protein 7.2 g/dL (6.4-8.2)
--- NOTE | 2021-11-22 12:48 | DI.CT_ITS ---
Exam(s) CT ABDOMEN PELVIS W EXAM: CT ABDOMEN PELVIS W INDICATION: LLQ pain. COMPARISON: No exams were available for comparison TECHNIQUE: FINDINGS: CT examination of the abdomen and pelvis was performed with a bolus infusion of 100 cc of Omnipaque 3 50. Images obtained through the lung bases are unremarkable. The liver is unremarkable in appearance. There is a visible gallstone. No gallbladder wall thickening or pericholecystic fluid collection, bi le ducts are CT normal. Pancreas appears normal. Spleen is unremarkable in appearance. Adrenals appear normal. The kidneys are unremarkable with no evidence of hydronephrosis, nephrolithiasis, or renal mass.. Ur inary bladder unremarkable. Abdominal aorta is of normal diameter and no major vascular abnormality is seen. No abdominal wall hernia. No abdominal or pelvic adenopathy. [employer] structures appear intact with unremarkable appearance of the ovaries by CT criteria.. Appendix is normal. No evidence of diverticulitis or bowel obstruction. There is question of wall thickening of the colon extending from the distal descending colon to the r ectum. No gross pericolonic fat edema seen. The findings could represent a mild colitis. Please co rrelate clinically. No other focal bowel pathology identified. IMPRESSION: Wall thickening of the distal descending colon extending to the rectum, possible colitis, please sis elate clinically.. RADIATION DOSE DELIVERED: 848.11mGy.cm Total DLP 848.11mGy.cm Total DLP !Error CTDIvol RADIATION OPTIMIZATION: All CT scans at this facility use at least one of these dose optimization te chniques: automated exposure control; mA and/or kV adjustment per patient size (includes targeted exa ms where dose is matched to clinical indication); or iterative reconstruction.
[2021-11-22] MEDS: Omnipaque 350 MG/ML 100 ML BTL IJ (12:56)
[2021-11-22] MEDS: Normal Saline Flush 10 ML SYR IVP (13:00)
--- NOTE | 2021-11-22 14:12 | NUR.NOTE ---
Nursing Note: PT INFO FAXED TO [facility] FOR 1-2 WEEKS FOR ABDOMINAL PAIN AND AN ABNORMAL CT. ALEXANDRO, ED
== END 2021-11-22 14:26 | disposition home or self-care (01) ==
PROVIDERS: Emergency Provider Student in an Organized Health Care Education/Training Program; PCP Family Medicine
DX: R10.32 Left lower quadrant pain (principal); R93.5 Abnormal findings on diagnostic imaging of other abdominal regions, including retroperitoneum
CPT/HCPCS: 36415; 36416; 80053; 81025; 82962; 83690; 96360; 99285; 74177; 81003; 81015; 85025; 99283; J3490

== ENCOUNTER 2021-12-06 02:29 | Outpatient (CLI) | payer MEDICAID, SELFPAY | END 2021-12-06 02:30 | disposition home or self-care (01) | LOC: LBO 02:29 | PROVIDERS: PCP Family Medicine; Visit Provider Family Medicine | DX: E55.9 Vitamin D deficiency, unspecified (principal) | CPT/HCPCS: 36415; 82306 ==

== ENCOUNTER 2021-12-18 04:07 | Outpatient (CLI) | payer MEDICAID, SELFPAY | END 2021-12-18 04:08 | disposition home or self-care (01) | LOC: LBO 04:07 | PROVIDERS: PCP Family Medicine; Visit Provider Surgery ==

== ENCOUNTER 2022-01-14 17:30 | Emergency (ER) | payer MEDICAID, SELFPAY ==
[2022-01-14 17:45] VITALS: BP 119/52; PULSE 86; RESP 16; TEMP 37.2; O2SAT 100
--- NOTE | 2022-01-14 18:11 | W.ED.GENAD ---
Discharge Plan Disposition Patient Disposition: HOME Condition: Stable Discharge Details Clinical Impression: Influenza A Primary Care Provider: Ashly Wadsworth ED Provider: Essie Sorto Home Meds and New Rx's Prescriptions: Continued multivitamin Tablet 1 tab PO DAILY 0RF bisacodyl [Dulcolax (bisacodyl)] 5 mg tablet,delayed release (DR/EC) 5 mg PO ONCE Qty: 4 0RF Rx Instructions: Take according to provider's instructions for colonoscopy prep. polyethylene glycol 3350 17 gram/dose powder 17 g PO ONCE Qty: 238 0RF Rx Instructions: To be taken as directed by prescriber's office for colonoscopy prep. cholecalciferol (vitamin D3) [Vitamin D3] 2,000 UNIT capsule 4,000 unit PO DAILY 0RF ibuprofen 400 MG tablet 400 mg PO QID Qty: 60 2RF albuterol sulfate [Ventolin HFA] 90 mcg/actuation HFA aerosol inhaler 1 - 2 puff IH Q4H PRN (Reason: shortness of breath or wheezing) Qty: 8.5 0RF fluconazole 150 mg tablet 150 mg PO Q3D Qty: 2 0RF Rx Instructions: may repeat second dose 72 hrs after first dose if symptoms persist Discharge Instructions Instructions: H1N1 Influenza (ED) Additional Instructions: At this time strep swab is negative. You have tested positive for influenza A. The treatment for influenza A is symptomatic treatment only. Increase oral fluids. Please take Tylenol or Ibuprofen with food every 4-6 hours as needed for pain and swelling. You may take [id number] vitamins such as vitamin C, vitamin D3 and zinc. Follow up with primary care provider in 7-10 days if needed. Return to ED sooner if any worsening or concerns. Increase oral fluids. Stand Alone Forms: Work Release Referrals: Ashly Wadsworth MD [Primary Care Provider] - Return if symptoms worsen Medical Decision Making 36-year-old female presents to the ER with her daughter who is also patient chief complaint of sore throat and congested cough. She reports that 2 weeks ago she was diagnosed with strep throat and did not finish her antibiotics. She does also report that she was positive for COVID-19 in early October. She is not vaccinated for the flu or COVID-19. She is requesting swab for flu and strep throat. Flu, RSV, COVID swab and rapid strep swab ordered. 650 mg Tylenol. Swab positive for influenza A. Discussed home care with patient at length. Discussed strict return instructions and red flags. She verbalized understanding. This text was generated using [employer] dictation system, please disregard any oddities of phrase or misspellings. Patient remained hemodynamically stable alert and oriented speaking in full sentences and ambulatory throughout stay. HPI General Mode of arrival: ambulatory. Date/Time Provider Initiated Documentation: 01/14/22 17:30. Limitations to Documentation: no limitations. Information obtained by: patient and RN notes reviewed. HPI Narrative: 36-year-old female presents to the ER with her daughter who is also patient chief complaint of sore throat and congested cough. She reports that 2 weeks ago she was diagnosed with strep throat and did not finish her antibiotics. She does also report that she was positive for COVID-19 in early October. She is not vaccinated for the flu or COVID-19. She is requesting swab for flu and strep throat. She denies any nausea vomiting diarrhea. She does report body aches. She is speaking in full sentences, vital signs are within normal limits. Lungs are clear to auscultation bilaterally. She does have slightly erythemic posterior oropharynx no exudate noted. Related Data Home Medications Medication Instructions Recorded Confirmed cholecalciferol (vitamin D3) 50 4,000 unit PO DAILY 04/12/17 01/14/22 mcg (2,000 unit) capsule (Vitamin D3) ibuprofen 400 mg tablet 400 mg PO QID #60 tab-cap 04/30/18 01/14/22 albuterol sulfate 90 mcg/actuation 1 - 2 puff IH Q4H PRN #8.5 gm 10/11/21 01/14/22 aerosol inhaler (Ventolin HFA) bisacodyl 5 mg tablet,delayed 5 mg PO ONCE #4 tab 12/01/21 01/14/22 release (Dulcolax (bisacodyl)) multivitamin 1 tab PO DAILY 12/01/21 01/14/22 polyethylene glycol 3350 17 17 g PO ONCE #238 g 12/01/21 01/14/22 gram/dose oral powder fluconazole 150 mg tablet 150 mg PO Q3D #2 tab 12/28/21 01/14/22 Previous Rx's Medication Instructions Recorded ibuprofen 400 mg tablet 400 mg PO QID #60 tab-cap 04/30/18 albuterol sulfate 90 mcg/actuation 1 - 2 puff IH Q4H PRN #8.5 gm 10/11/21 aerosol inhaler (Ventolin HFA) bisacodyl 5 mg tablet,delayed 5 mg PO ONCE #4 tab 12/01/21 release (Dulcolax (bisacodyl)) polyethylene glycol 3350 17 17 g PO ONCE #238 g 12/01/21 gram/dose oral powder fluconazole 150 mg tablet 150 mg PO Q3D #2 tab 12/28/21 Allergies Allergy/AdvReac Type Severity Reaction Status Date / Time metronidazole [From Flagyl] Allergy Intermediate Skin Rash Verified 01/14/22 17:49 prednisone AdvReac Intermediate Agitation, Verified 01/14/22 17:49 hyperactivity,palpitations General Stated Complaint: RespSymp ANITRA: 4 Review of Systems All systems reviewed & are unremarkable except as noted in HPI and below Constitutional Constitutional: Reports body ache(s) ENT Ears, Nose, Mouth, and Throat: Reports as per HPI and Reports sore throat Cardiovascular Cardiovascular: Denies dyspnea Respiratory Respiratory: Reports cough and Denies dyspnea Gastrointestinal Gastrointestinal: Denies diarrhea, Denies nausea and Denies vomiting PFSH All Active Problems (Updated 01/14/22 @ 19:33 by Essie Sorto) Influenza A (Acute) Menorrhagia with regular cycle (Acute) Vitamin D deficiency (Acute) COVID-19 (Acute ~10/12/21) Per antigen test x 2, 10/11 and 10/12/21. Neg pcr 10/09/21. Medical History Fibrocystic disease of breast (02/20/13) Family History Mother No problems noted. Father No problems noted. Maternal Grandmother Colon cancer Son Down syndrome Social History Smoking/Tobacco Use Status: Former Tobacco Use tobacco type: cigarettes Quit Date: 09/16/11 Pack-years: 10 Smoking risk assessment performed?: Yes Alcohol Intake: current Alcohol Intake frequency: holidays/special occasions only Drug use: Never Substance use type: does not use Household members: children Housing: apartment Number of Children: 4 Education Level: college Details: BA in human services current occupation: Works at [employer] Do you feel safe at home: Yes Do you feel safe in your relationship?: Yes Additional Social history: Enjoys exercise - new [employer] bike; spending time with family. Female Reproductive History Menstrual control method: none and other History History 4 Para 3 Hx # Term Pregnancies Multiple births Hx # Pregnancies Ectopic pregnancies AB induced Hx Number of Living Children AB spontaneous 1 Exam Narrative Exam Narrative: Constitutional: Alert and oriented x3. Appears stated age. Normal body habitus. Head: Normocephalic, no trauma. Eyes: Pupils PERRL, Red reflex noted, EOM's intact. Eyelids symmetrical without lesions, discharge, or swelling. ENT: Bilateral TM's WNL, External ear normal to inspection, no mastoid TTP, swelling, or erythema, Nasal turbinates WNL, no nasal discharge. Normal dentition, Posterior pharynx slightly erythemic,no exudate. Chest: RRR, Normal S1, S2, distal pulses intact. Resp: Lungs clear to auscultation bilaterally, no wheezes, rales, or rhonchi. Abdomen: Soft, non-distended, Normoactive bowel sounds all 4 quads. Musculoskeletal: Normal gait, 5/5 strength to all four extremities. Skin: No suspicious rashes or lesions. Capillary refill less than 2 sec. Neurologic: Cranial nerves II-XII intact. Alert and oriented x 3. Motor: No deficits noted. Sensory: Intact bilaterally all 4 extremities. Hematologic/Lymphatic: No ecchymosis, no lymphadenopathy. Course Vital Signs Vital signs: Vital Signs Temperature 37.2 C 01/14/22 17:45 Pulse 86 01/14/22 17:45 Respiratory Rate 16 01/14/22 17:45 Blood Pressure 119/52 L 01/14/22 17:45 Pulse Oximetry 100 01/14/22 17:45 Temperature 37.2 C 01/14/22 17:45 Temperature Source Skin 01/14/22 17:45 Pulse 86 01/14/22 17:45 Respiratory Rate 16 01/14/22 17:45 Respiratory Effort 01/14/22 17:45 Blood Pressure 119/52 L 01/14/22 17:45 Blood Pressure Position Sitting 01/14/22 17:45 Pulse Oximetry 100 01/14/22 17:45 Oxygen Delivery Method Room Air 01/14/22 17:45 Oxygen Flow Rate 0 01/14/22 17:45 Pain Level 3 01/14/22 17:45
[2022-01-14 19:06] LABS: COVID-19 PCR Negative (Negative); Influenza A PCR Positive (Negative); Influenza B PCR Negative (Negative); RSV PCR Negative (Negative)
[2022-01-14] MEDS: Acetaminophen 325 MG TAB 650 MG PO (20:00)
[2022-01-14 20:09] VITALS: PULSE 80; O2SAT 97
== END 2022-01-14 20:18 | disposition home or self-care (01) ==
PROVIDERS: Emergency Provider Registered Nurse Emergency; PCP Family Medicine
DX: J10.1 Influenza due to other identified influenza virus with other respiratory manifestations (principal); J02.9 Acute pharyngitis, unspecified
CPT/HCPCS: 87637; 87880; 99283; 87081

== ENCOUNTER 2022-03-16 02:39 | Outpatient (CLI) | payer MEDICAID, SELFPAY | END 2022-03-16 02:40 | disposition home or self-care (01) | LOC: LOS 02:39 | PROVIDERS: PCP Family Medicine; Visit Provider Emergency Medicine ==

== ENCOUNTER 2022-03-23 01:43 | Outpatient (CLI) | payer MEDICAID, SELFPAY | END 2022-03-23 01:44 | disposition home or self-care (01) | LOC: LOS 01:43 | PROVIDERS: PCP Family Medicine; Visit Provider Emergency Medicine ==

== ENCOUNTER 2022-03-28 03:24 | Outpatient (CLI) | payer MEDICAID, SELFPAY ==
[2022-03-28 11:32] LABS: ESR 7 mm/hr (0-20)
[2022-03-28 11:33] LABS: HGB 13.2 g/dL (11.2-15.7); MCH 30.1 pg (27.0-33.0); MCHC 34.7 % (32.0-36.0); MCV 87 fL (80-95); Platelet Count 264 10^3/uL (130-400); RBC 4.38 10^6/uL (3.93-5.22); RDW 11.9 % (11.7-14.6); RDW-SD 38.1 fL; WBC 5.15 10^3/uL (4.4-10.8)
[2022-03-28 11:39] LABS: Bilirubin Negative (Negative); Blood Negative (Negative); Clarity Clear (Clear); Glucose Negative (Negative); Ketones Negative (Negative); Leukocyte Esterase Negative (Negative); Nitrite Negative (Negative); Urobilinogen 0.2 EU/dL (Up TO 0.2)
[2022-03-28 11:49] LABS: Hemoglobin A1C 5.5 % (<5.7)
[2022-03-28 12:44] LABS: ALT 25 U/L (14-59); AST 18 U/L (15-37); Albumin 3.8 g/dL (3.4-5.0); Alkaline Phosphatase 78 U/L (46-116); Anion Gap 10.2 mmol/L (3-11); BUN 13 mg/dL (7-18); Bilirubin, Total 0.4 mg/dL (0.2-1.0); CO2 26.8 mmol/L (21.0-32.0); CREATININE 0.6 mg/dL (0.55-1.02); Calcium 8.9 mg/dL (8.5-10.1); Chloride 104 mmol/L (98-107); Glucose 96 mg/dL (74-106); Potassium 3.3 mmol/L (3.5-5.1); Sodium 141 mmol/L (136-145); TSH (W/Ref FT4) 1.42 uIU/mL (0.36-3.74); Total Protein 7.3 g/dL (6.4-8.2); Vitamin B12 340 pg/mL (193-986)
[2022-03-28 12:51] LABS: C-Reactive Protein 0.06 mg/dL (0.0-0.3); Lipase 157 U/L (73-393)
[2022-03-29 05:21] LABS: Vitamin D 25 Total 25.8 ng/mL (30-100)
[2022-03-29 08:56] LABS: HIV-1/2 Ag & Ab Screen Negative (Negative)
[2022-03-29 09:02] LABS: Hepatitis C Ab w Rflx HCV PCR Negative (Negative)
[2022-04-02 13:45] LABS: IgA 281 mg/dL (85-499); Interpretation (See Note); Tissue Transglutaminase IgA <1.2 U/mL (<4.0)
== END 2022-03-28 03:25 | disposition home or self-care (01) ==
LOC: LBO 03:24
PROVIDERS: PCP Family Medicine; Visit Provider Family Medicine
DX: R10.9 Unspecified abdominal pain (principal); Z11.59 Encounter for screening for other viral diseases; I10 Essential (primary) hypertension
CPT/HCPCS: 36415; 80053; 82306; 82784; 83516; 83690; 85027; 85652; 86803; 87389; 81003; 82607; 83036; 84443; 86140

== ENCOUNTER → 2022-05-30 01:16 | Outpatient (CLI) | payer MEDICAID, SELFPAY ==
--- NOTE | 2022-05-30 06:45 | DI.US_ITS ---
Exam(s) US PELVIS TRANSVAGINAL EXAM: US PELVIS TRANSVAGINAL CLINICAL HISTORY: pelvic pain,r10.9 TECHNIQUE: Ultrasound of the pelvis was performed both transabdominal and transvaginal. COMPARISON: CT CT ABDOMEN PELVIS W from 11/22/2021 FINDINGS: UTERUS: Retroflexed Measures 6.6 cm length x 5 cm AP x 5.2 cm wide. There are no uterine fibroids. Endometrial thickness measures 11.4 mm. There is no fluid in the endometrial canal. CERVIX: Few nabothian cysts are noted in the cervix. RIGHT OVARY: Measures 2.3 x 1.7 x 1.7 cm Contains small sub cm follicular cysts. LEFT OVARY: Measures 0.7 x 2.2 x 2.8 cm Contains follicular cysts measuring up to 1.6 cm. CUL-DE-SAC: No free fluid evident. IMPRESSION: 1. Retroflexed but otherwise normal appearing uterus. No fibroids. Endometrial thickness upper norm al for this age group. 2. Follicular cysts are noted in both ovaries. The largest cyst in left ovary measuring 1.[address] This is probably the dominant follicular cyst. 3. There no extraovarian adnexal masses and there is no free fluid in the [id number]-sac. DATA REPOSITORY:
== END ==
PROVIDERS: PCP Family Medicine; Visit Provider Family Medicine
DX: R10.2 Pelvic and perineal pain (principal); N83.01 Follicular cyst of right ovary; N83.02 Follicular cyst of left ovary
CPT/HCPCS: 76830; 76856

== ENCOUNTER 2022-07-12 13:29 | Outpatient (CLI) | payer MEDICAID, SELFPAY ==
[2022-07-12 15:50] LABS: Abs Immature Grans 0.01 10^3/uL (0.0-0.06); Absolute Basophil Count 0.03 10^3/uL (0.0-0.2); Absolute Lymphocyte Count 2.13 10^3/uL (1.2-3.4); Absolute Monocyte Count 0.41 10^3/uL (0.1-0.8); Absolute Neutrophil Count 4.34 10^3/uL (1.2-6.7); Basophils % 0.4; Eosinophils % 1.4; HGB 13.2 g/dL (11.2-15.7); Immature Grans % 0.1; Lymphocytes % 30.3; MCH 29.8 pg (27.0-33.0); MCHC 33.8 % (32.0-36.0); MCV 88 fL (80-95); MPV 9.7 fL (8.0-11.0); Monocytes % 5.8; Platelet Count 267 10^3/uL (130-400); RBC 4.43 10^6/uL (3.93-5.22); RDW 11.9 % (11.7-14.6); RDW-SD 38.4 fL; WBC 7.02 10^3/uL (4.4-10.8)
[2022-07-12 15:53] LABS: ESR 6 mm/hr (0-20)
[2022-07-12 16:12] LABS: Uric Acid 3.7 mg/dL (2.6-6.0)
[2022-07-12 21:48] LABS: Rheumatoid Factor <8.6 IU/mL (<12.0)
[2022-07-13 12:24] LABS: ANA Interpretation Positive (Negative); ANA Titer Pattern 1:80 Speckled
== END 2022-07-12 13:30 | disposition home or self-care (01) ==
LOC: LBO 13:30
PROVIDERS: PCP Family Medicine; Visit Provider Family Medicine
DX: M79.671 Pain in right foot (principal); M79.672 Pain in left foot; M1A.9XX0 Chronic gout, unspecified, without tophus (tophi)
CPT/HCPCS: 36415; 85652; 86803; 87389; 84550; 85025; 86038; 86431

== ENCOUNTER 2022-09-21 02:20 | Outpatient (CLI) | payer MEDICAID, SELFPAY ==
[2022-09-21 12:54] LABS: Anion Gap 6.2 mmol/L (3-11); BUN 9 mg/dL (7-18); CO2 26.8 mmol/L (21.0-32.0); CREATININE 0.5 mg/dL (0.55-1.02); Calcium 8.9 mg/dL (8.5-10.1); Chloride 105 mmol/L (98-107); Estimated GFR 124.58 (mL/min/1.73m2); Glucose 93 mg/dL (74-106); Potassium 3.7 mmol/L (3.5-5.1); Sodium 138 mmol/L (136-145)
[2022-09-21 13:41] LABS: Ferritin 20 ng/mL (8-252); Vitamin B12 299 pg/mL (193-986); Vitamin D 25 Total 21.3 ng/mL (30-100)
[2022-09-21 13:44] LABS: Folate > 20.0 ng/mL (8.6-20.0)
[2022-09-23 13:22] LABS: HIV-1/2 Ag & Ab Screen Negative (Negative)
[2022-09-24 09:22] LABS: Hepatitis C Ab w Rflx HCV PCR Negative (Negative)
== END 2022-09-21 02:21 | disposition home or self-care (01) ==
LOC: LOS 02:20
PROVIDERS: Nurse Practitioner Family; PCP Family Medicine; Visit Provider Family Medicine
DX: R20.2 Paresthesia of skin (principal); E87.6 Hypokalemia; N92.0 Excessive and frequent menstruation with regular cycle; Z11.4 Encounter for screening for human immunodeficiency virus [HIV]; Z11.59 Encounter for screening for other viral diseases; Z51.81 Encounter for therapeutic drug level monitoring; Z79.899 Other long term (current) drug therapy; E55.9 Vitamin D deficiency, unspecified
CPT/HCPCS: 36415; 80048; 80186; 82306; 86803; 87389; 82607; 82728; 82746

== ENCOUNTER 2022-11-09 11:50 | Outpatient (CLI) | payer MEDICAID, SELFPAY ==
[2022-11-09 13:22] LABS: Iron 110 ug/dL (50-170); Total Iron Binding Capacity 390 ug/dL (250-450); Transferrin Sat 28 % (15-50)
== END 2022-11-09 11:51 | disposition home or self-care (01) ==
LOC: LOS 11:51
PROVIDERS: PCP Family Medicine; Referring Provider Family Medicine; Visit Provider Family Medicine
DX: N92.0 Excessive and frequent menstruation with regular cycle (principal); R20.2 Paresthesia of skin
CPT/HCPCS: 36415; 83540; 83550

== ENCOUNTER 2022-12-19 00:31 | Emergency (ER) | payer MEDICAID, SELFPAY ==
[2022-12-19 00:34] VITALS: O2SAT 100
[2022-12-19 00:35] VITALS: BP 131/83; PULSE 79; PULSE 84; RESP 19; TEMP 36.6; O2SAT 99
--- NOTE | 2022-12-19 00:37 | ED.GENADUL_ITS ---
Discharge Plan Disposition Patient Disposition: Home Discharge Details Clinical Impression: Chest pain, unspecified Primary Care Provider: Ashly Wadsworth ED Provider: Nico Shepherd Home Meds and New Rx's Prescriptions: Continued multivitamin Tablet 1 tab PO DAILY cholecalciferol (vitamin D3) [Vitamin D3] 2,000 UNIT capsule 4,000 unit PO DAILY albuterol sulfate [Ventolin HFA] 90 mcg/actuation HFA aerosol inhaler 1 - 2 puff IH Q4H PRN (Reason: shortness of breath or wheezing) Qty: 8.5 0RF Discharge Instructions Additional Instructions: You were seen in the emergency department for your chest pain. Your blood work and your EKG showed no sign of heart attack. Please schedule an appointment with your primary care provider later this week. Please return to the emergency department if you develop any shortness of breath or chest pain associated with any sweating or if you have any other concerns. Discharge Data Discharge Date/Time-TO BE ENTERED AT DEPARTURE: 12/19/22 05:57 Medical Decision Making This is an overall quite well-appearing normothermic and not tachycardic 37-year-old female with chest pain and abnormal sensation on her legs after falling asleep with a heating pad on her legs. She has no signs of a thermal burn. No abdominal pain no vomiting to suggest ruptured AAA and patient lacks risk factors for AAA. Furthermore her lower extremities are warm and well- perfused so I am not concerned for vascular catastrophe. She has no rash to suggest erythema ab igne. No tearing quality to suggest aortic dissection. No abnormal lung sounds nor cough nor fevers to suggest pneumonia. No rash to chest to suggest zoster. No history of vomiting to suggest esophageal rupture. No history of trauma and no hypoxia nor absent lung sounds to suggest pneumothorax. No hypotension or tachycardia to suggest tamponade. Patient lacks risk factors for ACS and has a low heart score so if her initial and follow-up troponins are negative she will be appropriate for discharge with outpatient PMD follow-up. I considered pulmonary embolism however the patient is PERC negative so I did not send a D-dimer. Patient and I discussed the abnormal sensation she had on her legs. I explained that in the absence of any obvious thermal collins my suspicion is for any subcutaneous thermal injury was exceedingly low. Also in the setting of her normothermia I was not concerned for any systemic elevations in her temperature. 1:45 AM CBC lacks anemia and thrombocytopenia and leukocytosis. Initial troponin negative. Basic metabolic panel with mild hyperglycemia but no anion gap to suggest DKA. No BLAKE no acute electrolyte abnormalities. I met with the patient. She reported that her chest pain resolved. She requested that her blood pressure be repeated. 6:41 AM Patient's repeat troponin was negative. Her chest pain resolved in the ED. She was discharged with PCP follow-up as needed. Based on her low heart score I do not feel that she requires an outpatient stress test. HEART SCORE Chest pain Diagnostic Protocol: - [History/Physical/Gestalt: Slightly Suspicious (0)] - [EKG: Normal and/or unchanged from prior EKG (0)] - [AGE: less than 45 (0)] - [RISK FACTORS: No known risk factors (0)] - [TROPONIN: <= normal limit (0)] - TOTAL SCORE: 0 - Risk Factors: DM, current or recent smoker, HTN, HLD, family hx of CAD, obesity - INTERPRETATION: With a total score of 3 or less, risk of major cardiac event within six weeks 1.7%, likely lower with two negative troponins. [I explained to the patient that the risk of subsequent major cardiac event within 1 month is not 0, however risk predicted to be less than 2%. Patient verbalized understanding, accepts this risk and shared and the decision for discharge with PCP follow-up for further evaluation and management. They understand to return to the ED immediately with any worsening symptoms, new symptoms or other concerns.] Chronic conditions affecting the care of the patient: Carries a history of anxiety about health History obtained from an outside historian: N/A [place] [facility] [place] Diagnostic interpretations performed by me: [Per my independent interpretation chest x-ray shows:] [] [Per my independent interpretation EKG shows:] Narrow complex normal sinus rhythm at a rate of 68. Normal axis. Intervals within normal limits. No ST segment abnormalities. T wave flattening in lead III appears similar to prior dated last year. No acute injury pattern. Medications: None Social determinants of health affecting disposition: N/A Management discussed with: N/A Treatment/interventions considered: Anxiolysis using hydroxyzine or diphenhydramine Response to therapies provided: [] HPI General Date/Time Provider Initiated Documentation: 12/19/22 00:32 . HPI Narrative: This is a 37-year-old female with patellofemoral arthralgia now in the emergency department in the setting of concern for exposure to heating pad with warmth in her thighs and chest pain. Patient reports that she has been under increasing stress recently as the mother of 4 and as result of her participation in her tsmmqj-or-fjc's treatment for cancer. She says that this evening she fell asleep with a heating pad on her bilateral thighs, anteriorly. She reports waking up approximately 3 hours later and feeling nauseous and abnormal. She reports feeling warm. She is concerned that she may have heated up her blood. She felt a dry mouth and throat. She took a shower and drove herself to the emergency department. She feels as if she may have been breathing rapidly. She wonders whether or not she might of had a panic attack. On her drive to the emergency department she developed a centralized chest pain that was worse when she takes a deep breath. She takes no oral contraceptive pills and denies history of PEs and DVTs. She has no history of coronary artery disease, diabe tiana, hypertension, nor hyperlipidemia. There is no family history of premature coronary artery disease. She denies routine tobacco and ethanol but she does occasionally smoke marijuana. Related Data Home Medications Medication Instructions Recorded Confirmed cholecalciferol (vitamin D3) 50 4,000 unit PO DAILY 04/12/17 11/09/22 mcg (2,000 unit) capsule (Vitamin D3) albuterol sulfate 90 mcg/actuation 1 - 2 puff inhalation Q4H PRN 10/11/21 11/09/22 aerosol inhaler (Ventolin HFA) shortness of breath or wheezing #8.5 grams multivitamin 1 tab PO DAILY 12/01/21 11/09/22 Previous Rx's Medication Instructions Recorded albuterol sulfate 90 mcg/actuation 1 - 2 puff inhalation Q4H PRN 10/11/21 aerosol inhaler (Ventolin HFA) shortness of breath or wheezing #8.5 grams Allergies Allergy/AdvReac Type Severity Reaction Status Date / Time metronidazole [From Flagyl] Allergy Intermediate Skin Rash Verified 11/09/22 11:12 prednisone AdvReac Intermediate Agitation, Verified 11/09/22 11:12 hyperactivity,palpitations General ANITRA: 4 PFSH All Active Problems (Updated 12/19/22 @ 01:07 by Nico Shepherd MD) Vitamin D deficiency (Acute) Menorrhagia with regular cycle (Acute) Hand numbness (Acute) Paresthesia of both feet (Acute) Patellofemoral arthralgia of both knees (Acute) Anxiety about health (Acute) Chest pain, unspecified (Acute) Medical History (Updated 12/19/22 @ 01:07 by Nico Shepherd MD) COVID-19 (~10/12/21) Per antigen test x 2, 10/11 and 10/12/21. Neg pcr 10/09/21. Fibrocystic disease of breast (02/20/13) Family History Mother No problems noted. Father No problems noted. Maternal Grandmother Colon cancer Son Down syndrome Social History Smoking/Tobacco Use Status: Former Tobacco Use tobacco type: cigarettes Quit Date: 09/16/11 Pack-years: 10 Smoking risk assessment performed?: Yes Alcohol Intake: current Alcohol Intake frequency: holidays/special occasions only Drug use: Never Substance use type: does not use Household members: children Housing: apartment Number of Children: 4 Education Level: college Details: BA in human services current occupation: Works at [employer] Do you feel safe at home: Yes Do you feel safe in your relationship?: Yes Additional Social history: Enjoys exercise - new [employer] bike; spending time with family. Female Reproductive History Menstrual control method: none and other History History 4 Para 3 Hx # Term Pregnancies Multiple births Hx # Pregnancies Ectopic pregnancies AB induced Hx Number of Living Children AB spontaneous 1 Exam Narrative Exam Narrative: General: Well-appearing in no acute distress speaking in complete sentences. Head: Normocephalic, atraumatic Ear, nose, mouth, throat: Grossly normal inspection. Normal voice, handling secretions normally. Neck: Trachea midline. Cardiovascular: Well-perfused distal extremities. Regular rate and rhythm. Respiratory: Nonlabored respiration. Clear equal breath sounds. Gastrointestinal: Nondistended abdomen. Musculoskeletal: No significant erythema to bilateral thighs. Moving all 4 extremities spontaneously. Bilateral lower extremities warm well perfused with 2+ PT and DP pulses. Skin: Normal for age and race, grossly normal temperature and turgor. No acute rash. Neurologic: Alert and appropriate, no apparent acute deficits. Psychiatric: Mood and manner are appropriate. Grooming and personal hygiene are appropriate.
[2022-12-19 00:40] VITALS: O2SAT 99
--- NOTE | 2022-12-19 01:00 | DI.RAD_ITS ---
Exam(s) XR CHEST 2V PA LATERAL EXAM: XR CHEST 2V PA LATERAL CLINICAL HISTORY: Chest pain TECHNIQUE: 2D digital imaging was performed. COMPARISON: CR XR PORTABLE CHEST AP from 10/25/2021 FINDINGS: HEART: Normal size. Aorta: Not dilated. PULMONARY VASCULATURE: Normal. LUNGS: Clear. PLEURAL SPACE: No pleural effusion or pneumothorax. BONE:Unremarkable for age. IMPRESSION: No acute abnormality. DATA REPOSITORY: RADIATION DOSE DELIVERED:
--- NOTE | 2022-12-19 01:15 | RT.EKG_ITS ---
APPROVED REPORT Exam: Resting ECG Reason for Exam: Chest pain Patient Location: E HR:68 bpm ECG Measurements Heart Rate 68 AXIS UT 147 P 73 QRSd 77 QRS 57 QT 393 T 26 QTc 419 Conclusion Sinus rhythm...normal P axis, V-rate 60- 99 Narrow complex normal sinus rhythm at a rate of 68. Normal axis. Interv als within normal limits. No ST segment abnormalities. T wave flattening in lead III appears simila r to prior dated last year. No acute injury pattern.
[2022-12-19 01:21] LABS: Abs Immature Grans 0.01 10^3/uL (0.0-0.06); Absolute Basophil Count 0.03 10^3/uL (0.0-0.2); Absolute Eosinophil Count 0.11 10^3/uL (0.0-0.7); Absolute Lymphocyte Count 2.46 10^3/uL (1.2-3.4); Absolute Monocyte Count 0.43 10^3/uL (0.1-0.8); Absolute Neutrophil Count 2.41 10^3/uL (1.2-6.7); Basophils % 0.6; HCT 38.4 % (36.0-46.0); Immature Grans % 0.2; Lymphocytes % 45.1; MCH 29.9 pg (27.0-33.0); MCHC 33.9 % (32.0-36.0); MCV 88 fL (80-95); MPV 9.7 fL (8.0-11.0); Monocytes % 7.9; Neutrophils % 44.2; Platelet Count 222 10^3/uL (130-400); RBC 4.35 10^6/uL (3.93-5.22); RDW-SD 39.3 fL; WBC 5.45 10^3/uL (4.4-10.8)
[2022-12-19 01:42] LABS: HCG Qual (Serum) Negative
[2022-12-19 01:43] LABS: Anion Gap 7.3 mmol/L (3-11); BUN 17 mg/dL (7-18); CO2 27.7 mmol/L (21.0-32.0); CREATININE 0.7 mg/dL (0.55-1.02); Calcium 8.8 mg/dL (8.5-10.1); Chloride 105 mmol/L (98-107); Estimated GFR 114.88 (mL/min/1.73m2); Glucose 113 mg/dL (74-106); Potassium 3.5 mmol/L (3.5-5.1); Sodium 140 mmol/L (136-145); Troponin I < 50 ng/L (<or=60)
[2022-12-19 01:57] VITALS: BP 128/86; PULSE 88
--- NOTE | 2022-12-19 03:04 | DI.VRAD_ITS ---
PROCEDURE INFORMATION: Exam: XR Chest Exam date and time: 12/19/2022 1:31 AM Age: 37 years old Clinical indication: Other: Chest pain TECHNIQUE: Imaging protocol: Radiologic exam of the chest. Views: 2 views. COMPARISON: CR XR PORTABLE CHEST AP 10/25/2021 3:40 PM FINDINGS: Lungs: There is no evidence of focal pulmonary consolidation. The pulmonary vasculature is normal. Pleural spaces: There is no evidence of pneumothorax. There are no pleural effusions present. Heart/Mediastinum: The cardiac silhouette is within normal limits. The mediastinum is normal. Bones/joints: The spine, sternum, ribs, and pectoral girdles show no evidence of acute abnormality Other findings: There are no soft tissue masses or calcifications. IMPRESSION: No active cardiopulmonary disease. Dictated and Authenticated by: Reece Centeno MD. Ordering:ZOE Walsh MD
[2022-12-19 05:29] LABS: Troponin I < 50 ng/L (<or=60)
[2022-12-19 05:56] VITALS: BP 113/65; PULSE 78; RESP 17; O2SAT 98
== END 2022-12-19 05:57 | disposition home or self-care (01) ==
PROVIDERS: Emergency Provider Emergency Medicine; PCP Family Medicine
DX: R07.9 Chest pain, unspecified (principal); R73.9 Hyperglycemia, unspecified; D72.829 Elevated white blood cell count, unspecified; D69.6 Thrombocytopenia, unspecified; D64.9 Anemia, unspecified; Z86.16 Personal history of COVID-19
CPT/HCPCS: 80048; 93005; 99283; 71046; 84484; 84703; 85025; 93010

== ENCOUNTER 2023-01-11 20:11 | Emergency (ER) | payer MEDICAID, SELFPAY ==
[2023-01-11 20:18] VITALS: BP 114/77; PULSE 76; RESP 18; TEMP 37.1; O2SAT 97
--- NOTE | 2023-01-11 20:29 | ED.GENADUL_ITS ---
Discharge Plan Disposition Patient Disposition: Home Discharge Details Clinical Impression: Acute otalgia Primary Care Provider: Ashly Wadsworth ED Provider: Essie Sorto Home Meds and New Rx's Prescriptions: New Flonase Sensimist 27.5 mcg/actuation spray,suspension 1 spray intranasal DAILY 7 Days Qty: 9.1 0RF Rx Instructions: into each nostril amoxicillin 500 mg capsule 500 mg PO BID 5 Days Qty: 10 0RF Rx Instructions: Take one tablet by mouth twice daily x 5 days No Action multivitamin Tablet 1 tab PO DAILY cholecalciferol (vitamin D3) [Vitamin D3] 2,000 UNIT capsule 4,000 unit PO DAILY albuterol sulfate [Ventolin HFA] 90 mcg/actuation HFA aerosol inhaler 1 - 2 puff IH Q4H PRN (Reason: shortness of breath or wheezing) Qty: 8.5 0RF Discharge Instructions Instructions: Ear Infection (ED) Additional Instructions: Use the nasal spray 1 spray in each nostril daily for the next 7 days. Take the antibiotic with yogurt or probiotic as directed twice daily. You were given the first dose here. Please take Tylenol or Ibuprofen with food every 4-6 hours as needed for pain and swelling. Follow up with primary care provider in 3-5 days. Return to ED sooner if any worsening or concerns. Increase oral fluids. Referrals: Ashly Wadsworth MD [Primary Care Provider] - 3 days Medical Decision Making Patient is requesting amoxicillin without clavicular needed initially Augmentin ordered. I did change the prescription. Discussed home care follow-up and strict return instructions she verbalized understanding. This text was generated using [employer] system, please disregard any oddities of phrase or misspellings. HPI General Mode of arrival: ambulatory . Date/Time Provider Initiated Documentation: 01/11/23 20:17 . Limitations to Documentation: no limitations . Information obtained by: patient, RN notes reviewed and old records reviewed . HPI Narrative: 37-year-old female presents to the ER with a chief complaint of right ear pain for approximately 9 days after having some earplugs in her ear for an MRI. She reports is progressively getting worse. On exam she has no erythema or bulging. She does have some fluid noted behind the right ear. She also complains of sinus frontal type headache. Denies any fever or chills or any other associated complaints denies any throat pain. Related Data Home Medications Medication Instructions Recorded Confirmed cholecalciferol (vitamin D3) 50 4,000 unit PO DAILY 04/12/17 01/11/23 mcg (2,000 unit) capsule (Vitamin D3) albuterol sulfate 90 mcg/actuation 1 - 2 puff inhalation Q4H PRN 10/11/21 01/11/23 aerosol inhaler (Ventolin HFA) shortness of breath or wheezing #8.5 grams multivitamin 1 tab PO DAILY 12/01/21 01/11/23 amoxicillin 500 mg capsule 500 mg PO BID 5 days #10 caps 01/11/23 fluticasone furoate 27.5 1 spray intranasal DAILY 7 days 01/11/23 mcg/actuation nasal #9.1 mL spray,suspension (Flonase Sensimist) Previous Rx's Medication Instructions Recorded albuterol sulfate 90 mcg/actuation 1 - 2 puff inhalation Q4H PRN 10/11/21 aerosol inhaler (Ventolin HFA) shortness of breath or wheezing #8.5 grams amoxicillin 500 mg capsule 500 mg PO BID 5 days #10 caps 01/11/23 fluticasone furoate 27.5 1 spray intranasal DAILY 7 days 01/11/23 mcg/actuation nasal #9.1 mL spray,suspension (Flonase Sensimist) Allergies Allergy/AdvReac Type Severity Reaction Status Date / Time metronidazole [From Flagyl] Allergy Intermediate Skin Rash Verified 01/11/23 20:24 prednisone AdvReac Intermediate Agitation, Verified 01/11/23 20:24 hyperactivity,palpitations General Stated Complaint: Headache ANITRA: 4 Review of Systems All systems reviewed & are unremarkable except as noted in HPI and below ENT Ears, Nose, Mouth, and Throat: Reports otalgia PFSH All Active Problems (Updated 01/11/23 @ 20:34 by Essie Sorto NP) Vitamin D deficiency (Acute) Menorrhagia with regular cycle (Acute) Hand numbness (Acute) Paresthesia of both feet (Acute) Patellofemoral arthralgia of both knees (Acute) Anxiety about health (Acute) Chest pain, unspecified (Acute) Acute otalgia (Acute) Medical History COVID-19 (~10/12/21) Per antigen test x 2, 10/11 and 10/12/21. Neg pcr 10/09/21. Fibrocystic disease of breast (02/20/13) Family History Mother No problems noted. Father No problems noted. Maternal Grandmother Colon cancer Son Down syndrome Social History Smoking/Tobacco Use Status: Former Tobacco Use tobacco type: cigarettes Quit Date: 09/16/11 Pack-years: 10 Smoking risk assessment performed?: Yes Alcohol Intake: current Alcohol Intake frequency: holidays/special occasions only Drug use: Never Substance use type: does not use Household members: children Housing: apartment Number of Children: 4 Education Level: college Details: BA in [employer] services current occupation: Works at [employer] Do you feel safe at home: Yes Do you feel safe in your relationship?: Yes Additional Social history: Enjoys exercise - [employer] bike; spending time with family. Female Reproductive History Menstrual control method: none and other History History 4 Para 3 Hx # Term Pregnancies Multiple births Hx # Pregnancies Ectopic pregnancies AB induced Hx Number of Living Children AB spontaneous 1 Exam HENMT Ears: external ears normal, TM normal on the left and TM abnormal with fluid behind the TM Course Vital Signs Vital signs: Vital Signs Temperature 37.1 C 01/11/23 20:18 Pulse 76 01/11/23 20:18 Respiratory Rate 18 01/11/23 20:18 Blood Pressure 114/77 01/11/23 20:18 Pulse Oximetry 97 01/11/23 20:18 Temperature 37.1 C 01/11/23 20:18 Pulse 76 01/11/23 20:18 Respiratory Rate 18 01/11/23 20:18 Blood Pressure 114/77 01/11/23 20:18 Blood Pressure Position Sitting 01/11/23 20:18 Pulse Oximetry 97 01/11/23 20:18 Oxygen Delivery Method Room Air 01/11/23 20:18 Oxygen Flow Rate 0 01/11/23 20:18
[2023-01-11] MEDS: Amoxicillin 500 MG CAP PO ×2 (20:57)
== END 2023-01-11 20:58 | disposition home or self-care (01) ==
PROVIDERS: Emergency Provider Registered Nurse Emergency; PCP Family Medicine
DX: H92.03 Otalgia, bilateral (principal); R51.9 Headache, unspecified
CPT/HCPCS: 99283; 99284

== ENCOUNTER 2023-01-19 19:15 | Emergency (ER) | payer MEDICAID, SELFPAY ==
[2023-01-19 19:17] VITALS: BP 131/96; PULSE 80; RESP 24; O2SAT 97
[2023-01-19] MEDS: hydrOXYzine HCL 25 MG TAB (21:15)
--- NOTE | 2023-01-19 21:22 | ED.GENADUL_ITS ---
Discharge Plan Disposition Patient Disposition: Home Condition: Improving Discharge Details Clinical Impression: Anxiety about health, Acute serous otitis media Primary Care Provider: Ashly Wadsworth ED Provider: Ricky Bahena Home Meds and New Rx's Prescriptions: Continued multivitamin Tablet 1 tab PO DAILY cholecalciferol (vitamin D3) [Vitamin D3] 2,000 UNIT capsule 4,000 unit PO DAILY albuterol sulfate [Ventolin HFA] 90 mcg/actuation HFA aerosol inhaler 1 - 2 puff IH Q4H PRN (Reason: shortness of breath or wheezing) Qty: 8.5 0RF Discontinued mzbnwvbk-[id number]-YR 3.5-10,000-1 mg/mL-unit/mL-% drops,suspension 4 drp otic (ear) TID 10 Days Qty: 10 1RF Rx Instructions: apply to both ears Discharge Instructions Instructions: Anxiety (ED), Serous Otitis Media (ED) Additional Instructions: As discussed a lot of your symptoms tonight were due to anxiety. Please take the given medication as needed for further increase of your anxiety and follow- up with your primary care provider for reassessment. If you develop any new or significant worsening of symptoms feel free to return the emergency department for reevaluation. At this time the fullness of your ears does not seem to be infectious but more clear fluid and pressure. I do feel that you can stop your antibiotics at this time given the significant side effects that are causing and just monitor your symptoms. If not improving in the next week again follow-up with your primary care provider for recheck. Referrals: Ashly Wadsworth MD [Primary Care Provider] - Medical Decision Making Patient presenting to the emergency department for chief complaint of abnormal reaction to eardrops that she was prescribed. Patient states that she had only used them once before but then this evening after applying them to her ears she started feeling of fullness and then having some dizziness and feeling overall unwell. This then seem to cause her to have some panic symptoms which she has had before but never to this extent. Patient denies any hearing loss, drainage from the ears, difficulty breathing swallowing swelling to lips tongue mouth. Physical exam shows bilateral serous otitis media, exam otherwise shows anxiety and panic type response but no other physical exam findings. Reassured patient that I did not feel that symptoms were due to medication. Reassured patient. Once patient had calmed down somewhat she did state some fullness of left ear. Performed Cynthia maneuver which after period of observation she did have some improvement of symptoms but continued to endorse quite a bit of anxiety. Patient was given 12.5mg of Atarax. Which did start helping patient's symptoms. Patient did not have full resolution of anxiety but did encourage her that I feel she was appropriate for discharge and sent her home with some medication to use at home as needed. After discussion of diagnosis and plan of care patient has no further needs, questions, or concerns and states clear understanding to return to the emergency department for any worsening symptoms. This documentation was generated using [employer] system, please disre sivan any oddities of phrase or misspellings. Medical Records Medical records reviewed: Yes I reviewed the patient's medical records. Medical records narrative: Reviewed previous ER visits HPI General Mode of arrival: ambulatory . Date/Time Provider Initiated Documentation: 01/19/23 19:23 . Limitations to Documentation: no limitations . Information obtained by: RN notes reviewed . History of Present Illness 37 year old F presents to the emergency department with the chief complaint of Ear pain, anxiety, described as moderate and similar to prior episodes, with intensity rated at 4. Quality is described as aching, and is localized to the head (Bilateral ears). Patient started experiencing this hour(s) (1) and it has been constant. No relieving factors improve symptom(s), Medication worsens symptoms . Patient did receive the following treatments prior to arri tanja, none Related Data Home Medications Medication Instructions Recorded Confirmed cholecalciferol (vitamin D3) 50 4,000 unit PO DAILY 04/12/17 01/17/23 mcg (2,000 unit) capsule (Vitamin D3) albuterol sulfate 90 mcg/actuation 1 - 2 puff inhalation Q4H PRN 10/11/21 01/17/23 aerosol inhaler (Ventolin HFA) shortness of breath or wheezing #8.5 grams multivitamin 1 tab PO DAILY 12/01/21 01/17/23 Previous Rx's Medication Instructions Recorded albuterol sulfate 90 mcg/actuation 1 - 2 puff inhalation Q4H PRN 10/11/21 aerosol inhaler (Ventolin HFA) shortness of breath or wheezing #8.5 grams Allergies Allergy/AdvReac Type Severity Reaction Status Date / Time metronidazole [From Flagyl] Allergy Intermediate Skin Rash Verified 01/19/23 19:28 prednisone AdvReac Intermediate Agitation, Verified 01/19/23 19:28 hyperactivity,palpitations General Stated Complaint: EarProblem ANITRA: 3 Review of Systems Constitutional Constitutional: Denies chills, Denies fever(s) and Denies headache(s) ENT Ears, Nose, Mouth, and Throat: Reports as per HPI, Reports dizziness, Denies ear discharge, Reports otalgia, Denies headache(s), Denies lip swelling, Denies nasal congestion, Denies sore throat and Denies throat swelling Cardiovascular Cardiovascular: Denies chest pain, Denies syncope and Reports dyspnea Respiratory Respiratory: Reports dyspnea Gastrointestinal Gastrointestinal: Denies abdominal pain, Reports nausea and Denies vomiting Integumentary/Breasts Skin/Breast: Denies erythema and Denies rash Neurologic Neurologic: Reports dizziness, Denies syncope and Denies headache(s) Psychiatric Psychiatric: Reports anxiety Allergic/Immunologic Allergic/Immunologic: Denies lip swelling and Denies throat swelling PFSH All Active Problems Vitamin D deficiency (Acute) Menorrhagia with regular cycle (Acute) Hand numbness (Acute) Paresthesia of both feet (Acute) Patellofemoral arthralgia of both knees (Acute) Anxiety about health (Acute) Acute otalgia (Acute) Acute serous otitis media (Acute) Medical History COVID-19 (~10/12/21) Per antigen test x 2, 10/11 and 10/12/21. Neg pcr 10/09/21. Fibrocystic disease of breast (02/20/13) Family History Mother No problems noted. Father No problems noted. 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 Female Reproductive History Menstrual control method: none and other History History 4 Para 3 Hx # Term Pregnancies Multiple births Hx # Pregnancies Ectopic pregnancies AB induced Hx Number of Living Children AB spontaneous 1 Exam Const General: cooperative, comfortable and anxious Orientation: alert and awake HENMT Head: normal to inspection, normocephalic and atraumatic Ears: hearing grossly normal bilaterally and TM abnormal wth effusion serous bilaterally General nose exam: external nose normal Face and sinus: no erythema and sinus tenderness ethmoid and maxillary Mouth: oral mucosae normal, no drooling, no muffled voice and no trismus Throat: posterior oropharynx normal Neck Neck: normal visual inspection, full ROM, no lymphadenopathy, no meningeal signs, trachea midline and supple Resp Effort & Inspection: normal respiratory effort and able to speak in complete sentences Auscultation: clear to auscultation bilaterally Cardio Rate: regular rate Rhythm: regular rhythm Heart Sounds: S1 normal, S2 normal, normal S1 and S2, no click, no gallops, no murmurs and no rubs Skin General skin exam: no rashes or lesions noted and dry skin (warm) Neuro General: patient alert, patient awake, patient oriented x3, gait normal and moves all extremities Cognition: normal cognition Speech: speech normal Psych Appearance: grossly normal Speech and Movement: agitated Mood: anxious mood Affect: anxious affect Attitude: cooperative Thought Process: circumstantial Thought Content: phobias Insight: fair Judgment: fair Course Vital Signs Vital signs: Vital Signs Pulse 80 01/19/23 19:17 Respiratory Rate 24 01/19/23 19:17 Blood Pressure 131/96 H 01/19/23 19:17 Pulse Oximetry 97 01/19/23 19:17 Pulse 80 01/19/23 19:17 Respiratory Rate 24 01/19/23 19:17 Blood Pressure 131/96 H 01/19/23 19:17 Blood Pressure Position Sitting 01/19/23 19:17 Pulse Oximetry 97 01/19/23 19:17 Oxygen Delivery Method Room Air 01/19/23 19:17 Oxygen Flow Rate 0 01/19/23 19:17
[2023-01-19 22:18] VITALS: BP 128/73; PULSE 73; RESP 20; O2SAT 98
--- NOTE | 2023-01-19 22:19 | NUR.NOTE ---
@[id number]- Attempted to discharge pt. Pt asks if it is okay to take hydroxyzine while . Medication researched in book and is okay, information given pt. Pt refused to be discharged by RN and wishes to speak with HAO Beth again prior to her discharge out of concern that she may have an allergic rxn to the medications that she was given here. HAO Beth aware.
== END 2023-01-19 22:35 | disposition home or self-care (01) ==
PROVIDERS: Emergency Provider Nurse Practitioner Family; PCP Family Medicine
DX: H65.03 Acute serous otitis media, bilateral (principal); F48.1 Depersonalization-derealization syndrome
CPT/HCPCS: 99283; 99284

== ENCOUNTER 2023-01-21 18:31 | Outpatient (REF) | payer MEDICAID, SELFPAY | END 2023-01-21 18:32 | disposition home or self-care (01) | LOC: LBN 18:31 | PROVIDERS: PCP Family Medicine; Visit Provider Nurse Practitioner Family | DX: R07.0 Pain in throat (principal) | CPT/HCPCS: 87070 ==

== ENCOUNTER 2023-01-22 16:02 | Outpatient (CLI) | payer MEDICAID, SELFPAY ==
--- NOTE | 2023-01-22 14:15 | DI.RAD_ITS ---
Exam(s) XR CHEST 2V PA LATERAL EXAM: XR CHEST 2V PA LATERAL CLINICAL HISTORY: worsened SOB,URI,J06.9. TECHNIQUE: 2D digital imaging was performed. COMPARISON: CR,XR XR CHEST 2V PA LATERAL from 12/19/2022 FINDINGS: 2 views: Heart size is normal. The mediastinum is not widened. Lungs are clear. No infiltrates nor pleural effusions. IMPRESSION: No acute pulmonary findings. DATA REPOSITORY: RADIATION DOSE DELIVERED:
== END 2023-01-22 16:22 ==
LOC: DI 16:02
PROVIDERS: PCP Family Medicine; Visit Provider Nurse Practitioner Family
DX: J06.9 Acute upper respiratory infection, unspecified (principal)
CPT/HCPCS: 71046

== ENCOUNTER 2023-01-26 16:17 | Emergency (ER) | payer MEDICAID, SELFPAY ==
[2023-01-26 16:24] VITALS: BP 121/71; PULSE 78; RESP 18; O2SAT 98
[2023-01-26 16:38] VITALS: RESP 18
--- NOTE | 2023-01-26 16:45 | DI.CT_ITS ---
Exam(s) CT HEAD SINUS WO EXAM: CT HEAD SINUS WO CLINICAL HISTORY: Head and Sinus pressure. TECHNIQUE: Imaging Protocol: Axial computed tomography images with coronal and sagittal reformatted images were created and reviewed COMPARISON: No exams were available for comparison FINDINGS: CT Head: Ventricles and Extra axial spaces: Normal in size and morphology for the patient's age. Hemorrhage: None. Cerebral parenchyma: Normal. Midline shift: None. Brainstem/Cerebellum: Normal. Calvarium: Normal. Visualized Paranasal sinuses/Mastoids: Clear. Soft Tissues: Unremarkable. CT Face: Facial Bones: No fracture is noted in facial bones. Sinuses and Mastoids: Clear. Globes, extraocular muscles, optic nerves and retrobulbar fat: Normal. Upper aerodigestive tract: Normal. Mandible and bilateral temporomandibular joints: Normal. Soft tissues: Normal. IMPRESSION: 1. No acute intracranial process. 2. No acute facial fracture. No evidence of sinus disease. RADIATION DOSE DELIVERED: 797.52mGy.cm Total DLP DATA REPOSITORY: All CT scans at this facility are submitted to the National Radiology Data Registry (NRDR) Dose Index Registry (DIR) with the [employer] (ACR). RADIATION OPTIMIZATION: All CT scans at this facility use at least one of these dose optimization te chniques: automated exposure control; mA and/or kV adjustment per patient size (includes targeted exa ms where dose is matched to clinical indication); or iterative reconstruction.
--- NOTE | 2023-01-26 16:46 | ED.GENADUL_ITS ---
Discharge Plan Disposition Patient Disposition: Home Condition: Stable Discharge Details Clinical Impression: Headache Primary Care Provider: Ashly Wadsworth ED Provider: Essie Sorto Home Meds and New Rx's Prescriptions: Continued multivitamin Tablet 1 tab PO DAILY hydroxyzine HCl 25 mg tablet 25 mg PO BID PRN (Reason: itching) Qty: 30 0RF fluconazole 150 mg tablet 150 mg PO Q3D 0 Days Qty: 2 0RF Rx Instructions: may repeat second dose 72 hrs after first dose if symptoms persist amoxicillin-pot clavulanate 875-125 mg tablet 1 tab PO Q12H Qty: 14 0RF Rx Instructions: Take 1 tablet twice a day for 7 days - extend previous rx to 14 days cholecalciferol (vitamin D3) [Vitamin D3] 2,000 UNIT capsule 4,000 unit PO DAILY albuterol sulfate [Ventolin HFA] 90 mcg/actuation HFA aerosol inhaler 1 - 2 puff IH Q4H PRN (Reason: shortness of breath or wheezing) Qty: 8.5 0RF Discharge Instructions Instructions: General Headache (ED) Additional Instructions: CT head and sinuses is within normal limits. Please continue with the previous instructions by your primary care provider or your ear nose and throat doctor. Follow up with primary care provider in 3-5 days. Return to ED sooner if any worsening or concerns. Increase oral fluids. Please take Tylenol or Ibuprofen with food every 4-6 hours as needed for pain and swelling. Referrals: Ashly Wadsworth MD [Primary Care Provider] - 3 days Medical Decision Making 37-year-old female presents to the ER with a chief complaint of confusion, sinus pressure, pain in front of her ears for approximately a month. Patient has been on eardrops and oral antibiotics has spoken with the ENT. She denies any fever. She states that she feels that is something wrong and she is requesting a CAT scan. She is alert and oriented x4. She denies any cough shortness of breath or chest pain. She denies any throat pain. CT head and sinuses within normal limits. Patient did see PCP today and instructed to continue with the antibiotic. Discussed at length results and encouraged to keep ENT appointment and follow up with PCP if needed. This text was generated using [employer] system, please disregard any oddities of phrase or misspellings. Medical Records Medical records reviewed: Yes I reviewed the patient's medical records. HPI General Mode of arrival: ambulatory . Date/Time Provider Initiated Documentation: 01/26/23 16:32 . Limitations to Documentation: no limitations . Information obtained by: patient, RN notes reviewed and old records reviewed . HPI Narrative: 37-year-old female presents to the ER with a chief complaint of confusion, sinus pressure, pain in front of her ears for approximately a month. Patient has been on eardrops and oral antibiotics has spoken with the ENT. She denies any fever. She states that she feels that is something wrong and she is requesting a CAT scan. She is alert and oriented x4. She denies any cough shortness of breath or chest pain. She denies any throat pain. Related Data Home Medications Medication Instructions Recorded Confirmed cholecalciferol (vitamin D3) 50 4,000 unit PO DAILY 04/12/17 01/26/23 mcg (2,000 unit) capsule (Vitamin D3) albuterol sulfate 90 mcg/actuation 1 - 2 puff inhalation Q4H PRN 10/11/21 01/26/23 aerosol inhaler (Ventolin HFA) shortness of breath or wheezing #8.5 grams multivitamin 1 tab PO DAILY 12/01/21 01/26/23 hydroxyzine HCl 25 mg tablet 25 mg PO BID PRN itching #30 tabs 01/22/23 01/26/23 amoxicillin 875 mg-potassium 1 tab PO Q12H #14 tabs 01/26/23 01/26/23 clavulanate 125 mg tablet fluconazole 150 mg tablet 150 mg PO Q3D 2 doses #2 tabs 01/26/23 01/26/23 Previous Rx's Medication Instructions Recorded albuterol sulfate 90 mcg/actuation 1 - 2 puff inhalation Q4H PRN 10/11/21 aerosol inhaler (Ventolin HFA) shortness of breath or wheezing #8.5 grams hydroxyzine HCl 25 mg tablet 25 mg PO BID PRN itching #30 tabs 01/22/23 amoxicillin 875 mg-potassium 1 tab PO Q12H #14 tabs 01/26/23 clavulanate 125 mg tablet fluconazole 150 mg tablet 150 mg PO Q3D 2 doses #2 tabs 01/26/23 Allergies Allergy/AdvReac Type Severity Reaction Status Date / Time metronidazole [From Flagyl] Allergy Intermediate Skin Rash Verified 01/26/23 12:05 prednisone AdvReac Intermediate Agitation, Verified 01/26/23 12:05 hyperactivity,palpitations steroids AdvReac Severe Agitation Uncoded 01/26/23 12:14 General Stated Complaint: GenMedical ANITRA: 4 Review of Systems All systems reviewed & are unremarkable except as noted in HPI and below Constitutional Constitutional: Reports as per HPI and Reports headache(s) ENT Ears, Nose, Mouth, and Throat: Reports as per HPI, Reports dizziness, Reports headache(s) and Reports sinus pressure Neurologic Neurologic: Reports dizziness and Reports headache(s) PFSH All Active Problems (Updated 01/26/23 @ 17:52 by Essie Sorto NP) Vitamin D deficiency (Acute) Menorrhagia with regular cycle (Acute) Hand numbness (Acute) Paresthesia of both feet (Acute) Patellofemoral arthralgia of both knees (Acute) Anxiety about health (Acute) Acute otalgia (Acute) Acute serous otitis media (Acute) Upper respiratory infection (Acute) Headache (Acute) Medical History COVID-19 (~10/12/21) Per antigen test x 2, 10/11 and 10/12/21. Neg pcr 10/09/21. Fibrocystic disease of breast (02/20/13) Family History Mother No problems noted. Father No problems noted. Maternal Grandmother Colon cancer Son Down syndrome Social History Smoking/Tobacco Use Status: Former Tobacco Use tobacco type: cigarettes Quit Date: 09/16/11 Pack-years: 10 Smoking risk assessment performed?: Yes Alcohol Intake: current Alcohol Intake frequency: holidays/special occasions only Drug use: Never Substance use type: does not use Household members: children Housing: apartment Number of Children: 4 Education Level: college Details: BA in human services current occupation: Works at [employer] Do you feel safe at home: Yes Do you feel safe in your relationship?: Yes Additional Social history: Enjoys exercise - new spin bike; spending time with family. Female Reproductive History Menstrual control method: none and other History History 4 Para 3 Hx # Term Pregnancies Multiple births Hx # Pregnancies Ectopic pregnancies AB induced Hx Number of Living Children AB spontaneous 1 Exam Narrative Exam Narrative: Constitutional: Alert and oriented x3. Appears stated age. Normal body habitus. Head: Normocephalic, no trauma. Eyes: Pupils PERRL, Red reflex noted, EOM's intact. Eyelids symmetrical without lesions, discharge, or swelling. ENT: Bilateral TM's WNL, External ear normal to inspection, no mastoid TTP, swelling, or erythema, Nasal turbinates WNL, no nasal discharge. Normal dentition, Posterior pharynx WNL, no exudate. Chest: RRR, Normal S1, S2, distal pulses intact. Resp: Lungs clear to auscultation bilaterally, no wheezes, rales, or rhonchi. Musculoskeletal: Normal gait, 5/5 strength to all four extremities. Skin: No suspicious rashes or lesions. Capillary refill less than 2 sec. Neurologic: Cranial nerves II-XII intact. Alert and oriented x 3. Hematologic/Lymphatic: No ecchymosis, no lymphadenopathy. Course Vital Signs Vital signs: Vital Signs Pulse 78 01/26/23 16:24 Respiratory Rate 18 01/26/23 16:24 Blood Pressure 121/71 01/26/23 16:24 Pulse Oximetry 98 01/26/23 16:24 Pulse 78 01/26/23 16:24 Respiratory Rate 18 01/26/23 16:38 Respiratory Effort Normal, Non-Labored 01/26/23 16:38 Respiratory Depth Normal 01/26/23 16:38 Respiratory Pattern Normal 01/26/23 16:38 Blood Pressure 121/71 01/26/23 16:24 Blood Pressure Position Sitting 01/26/23 16:24 Pulse Oximetry 98 01/26/23 16:24 Oxygen Delivery Method Room Air 01/26/23 16:24 Oxygen Flow Rate 0 01/26/23 16:24 Pain Level 2 01/26/23 16:24
--- NOTE | 2023-01-26 17:47 | DI.VRAD_ITS ---
PROCEDURE INFORMATION: Exam: CT Head Without Contrast Exam date and time: 01/26/2023 5:11 PM Age: 37 years old Clinical indication: Other: Head pressure; Patient HX: Head and sinus pressure TECHNIQUE: Imaging protocol: Computed tomography of the head without contrast. COMPARISON: No relevant prior studies available. FINDINGS: Brain: No intracranial hemorrhage. No evidence of large vessel territory infarct. No mass or mass effect. Cerebral ventricles: Ventricles and sulci are appropriate for age. Paranasal sinuses: Visualized sinuses are unremarkable. No fluid levels. Mastoid air cells: Visualized mastoid air cells are well aerated. Bones/joints: Unremarkable. No acute fracture. Soft tissues: Unremarkable. IMPRESSION: No acute intracranial abnormality. PROCEDURE INFORMATION: Exam: CT Maxillofacial Without Contrast, Sinus Exam date and time: 01/26/2023 5:11 PM Age: 37 years old Clinical indication: Other: Head pressure; Patient HX: Head and sinus pressure TECHNIQUE: Imaging protocol: CT Maxillofacial without contrast. Focus on the sinuses. COMPARISON: No relevant prior studies available. FINDINGS: Frontal sinuses: Normal. No air-fluid levels. Ethmoid sinuses: Normal. No air-fluid levels. Sphenoid sinuses: Normal. No air-fluid levels. Maxillary sinuses: Normal. No air-fluid levels. Ostiomeatal units are patent. Nasal cavity: Unremarkable. Nasal septum is midline. Orbital cavities: Orbits are normal. Globes are unremarkable. Bones/joints: Unremarkable. Soft tissues: Unremarkable. IMPRESSION: Unremarkable sinuses. Dictated and Authenticated by: Yonas Bennett MD. Ordering:ACACIA Fountain MD
== END 2023-01-26 18:12 | disposition home or self-care (01) ==
PROVIDERS: Emergency Provider Registered Nurse Emergency; PCP Family Medicine
DX: R51.9 Headache, unspecified (principal); R44.9 Unspecified symptoms and signs involving general sensations and perceptions
CPT/HCPCS: 81025; 99284; 70450; 70486; 99283

== ENCOUNTER 2023-02-06 18:10 | Outpatient (REF) | payer MEDICAID, SELFPAY | END 2023-02-06 18:11 | disposition home or self-care (01) | LOC: LBN 18:10 | PROVIDERS: PCP Nurse Practitioner Family; Visit Provider Physician Assistant Medical | DX: J02.9 Acute pharyngitis, unspecified (principal) | CPT/HCPCS: 87070 ==

== ENCOUNTER 2023-03-12 10:37 | Outpatient (REF) | payer MEDICAID, SELFPAY ==
[2023-03-12 22:17] LABS: Absolute Basophil Count 0.04 10^3/uL (0.0-0.2); Absolute Eosinophil Count 0.04 10^3/uL (0.0-0.7); Absolute Lymphocyte Count 1.55 10^3/uL (1.2-3.4); Absolute Monocyte Count 0.35 10^3/uL (0.1-0.8); Basophils % 0.9; Eosinophils % 0.9; HCT 42.1 % (36.0-46.0); Lymphocytes % 35.6; MCH 29.6 pg (27.0-33.0); MCHC 33.3 % (32.0-36.0); MCV 89 fL (80-95); MPV 11.1 fL (8.0-11.0); Neutrophils % 54.6; Platelet Count 326 10^3/uL (130-400); RBC 4.73 10^6/uL (3.93-5.22); WBC 4.35 10^3/uL (4.4-10.8)
[2023-03-12 22:24] LABS: Absolute Neutrophil Count 2.38 10^3/uL (1.2-6.7)
[2023-03-12 22:58] LABS: ALT 25 U/L (14-59); AST 20 U/L (15-37); Albumin 4.4 g/dL (3.4-5.0); Alkaline Phosphatase 85 U/L (46-116); Anion Gap 10.2 mmol/L (3-11); BUN 11 mg/dL (7-18); Bilirubin, Total 0.4 mg/dL (0.2-1.0); CO2 26.8 mmol/L (21.0-32.0); CREATININE 0.5 mg/dL (0.55-1.02); Calcium 9.4 mg/dL (8.5-10.1); Chloride 103 mmol/L (98-107); Estimated GFR 123.81 (mL/min/1.73m2); Glucose 94 mg/dL (74-106); Potassium 4.2 mmol/L (3.5-5.1); Sodium 140 mmol/L (136-145); TSH (W/Ref FT4) 1.37 uIU/mL (0.36-3.74); Total Protein 8.3 g/dL (6.4-8.2); Vitamin B12 317 pg/mL (193-986)
[2023-03-12 22:59] LABS: Vitamin D 25 Total 31.7 ng/mL (30-100)
[2023-03-14 10:20] LABS: Lyme Ab w Rflx to Lyme Confirm Negative (Negative)
[2023-03-16 22:08] LABS: Anaplasma phagocytophilum Negative (Negative); B. miyamotoi PCR Negative (Negative); Babesia divergens/MO-1 Negative (Negative); Babesia duncani Negative (Negative); Babesia microti Negative (Negative); Ehrlichia chaffeensis Negative (Negative); Ehrlichia ewingii/canis Negative (Negative); Ehrlichia muris eauclairensis Negative (Negative)
== END 2023-03-12 10:38 | disposition home or self-care (01) ==
LOC: LBN 10:37
PROVIDERS: PCP Nurse Practitioner Family; Visit Provider Physician Assistant
DX: R53.83 Other fatigue (principal)
CPT/HCPCS: 80053; 82306; 87798; 82607; 84443; 85025; 86618

== ENCOUNTER 2023-04-09 14:29 | Emergency (ER) | payer MEDICAID, SELFPAY ==
[2023-04-09 14:33] VITALS: BP 126/89; PULSE 95; RESP 18; TEMP 37; O2SAT 99
== END 2023-04-09 15:55 | disposition left against medical advice (07) ==
LOC: ER 14:37
PROVIDERS: PCP Nurse Practitioner Family
DX: Z53.21 Procedure and treatment not carried out due to patient leaving prior to being seen by health care provider (principal)

== ENCOUNTER 2023-04-16 12:50 | Outpatient (REF) | payer MEDICAID, SELFPAY | END 2023-04-16 12:51 | disposition home or self-care (01) | LOC: LBN 12:50 | PROVIDERS: PCP Nurse Practitioner Family; Visit Provider Obstetrics & Gynecology Gynecology | DX: N76.0 Acute vaginitis (principal) | CPT/HCPCS: 87480; 87510; 87660 ==

== ENCOUNTER 2023-04-18 20:29 | Emergency (ER) | payer MEDICAID, SELFPAY ==
[2023-04-18 20:33] VITALS: BP 126/85; PULSE 73; RESP 16; TEMP 36.8; O2SAT 98
--- NOTE | 2023-04-18 20:57 | ED.GENADUL_ITS ---
Discharge Plan Disposition Patient Disposition: Home Condition: Stable Discharge Details Clinical Impression: Pain in throat Primary Care Provider: Ludwig Tavares ED Provider: Johny Rahman Home Meds and New Rx's Prescriptions: Continued multivitamin Tablet 1 tab PO DAILY lorazepam [Ativan] 1 mg tablet 1 mg PO DAILY PRN (Reason: anxiety) Qty: 2 0RF cholecalciferol (vitamin D3) [Vitamin D3] 2,000 UNIT capsule 4,000 unit PO DAILY albuterol sulfate [Ventolin HFA] 90 mcg/actuation HFA aerosol inhaler 1 - 2 puff IH Q4H PRN (Reason: shortness of breath or wheezing) Qty: 8.5 0RF Discharge Instructions Additional Instructions: Your mono and strep tests were negative follow up as scheduled with ENT next week if you feel more ill, have difficulty breathing or inability swallowing liquids return to the emergency department Medical Decision Making 38 yo female comes in with cc of several days of sore throat and general malaise and feeling tired. Denies fevers, chills, difficulty swallowing liquids or dyspnea. She has been treated frequently for vaginal candidiasis and is worried this could be in her throat. She is caox4 on exam. She is speaking and swallowing normally. She has no submandibular swelling or pain over the hyoid. She has normal tongue without evidence of thrush, midline uvula, she does have 3 1mm circular lesions on the roof of her mouth posteriorly, no exudates. Suspect viral uri but will check strep and mono, no findings on exam to suggest retropharyngeal abscess, pertonsilar abscess or epiglotitis. labs unremarkable, she is stable and requesting d/c and feel she is stable for d/c, she states she has ent appointment next week, return precautions given Differential Diagnosis Differential Diagnosis: viral pharyngitis, strep, mono Lab Data Lab results reviewed: Yes I reviewed the patient's lab results. HPI General Mode of arrival: ambulatory . Date/Time Provider Initiated Documentation: 04/18/23 20:45 . Limitations to Documentation: no limitations . Information obtained by: patient . History of Present Illness 38 year old F presents to the emergency department with the chief complaint of sore throat, described as moderate, Quality is described as aching, Patient started experiencing this day(s) (3) and it has been constant. No relieving factors improve symptom(s), No exacerbating factors reported . Patient notes weakness. Patient did receive the following treatments prior to arrival, none Related Data Home Medications Medication Instructions Recorded Confirmed cholecalciferol (vitamin D3) 50 4,000 unit PO DAILY 04/12/17 04/18/23 mcg (2,000 unit) capsule (Vitamin D3) albuterol sulfate 90 mcg/actuation 1 - 2 puff inhalation Q4H PRN 10/11/21 04/18/23 aerosol inhaler (Ventolin HFA) shortness of breath or wheezing #8.5 grams multivitamin 1 tab PO DAILY 12/01/21 04/18/23 lorazepam 1 mg tablet (Ativan) 1 mg PO DAILY PRN anxiety #2 tabs 04/09/23 04/18/23 Previous Rx's Medication Instructions Recorded albuterol sulfate 90 mcg/actuation 1 - 2 puff inhalation Q4H PRN 10/11/21 aerosol inhaler (Ventolin HFA) shortness of breath or wheezing #8.5 grams lorazepam 1 mg tablet (Ativan) 1 mg PO DAILY PRN anxiety #2 tabs 04/09/23 Allergies Allergy/AdvReac Type Severity Reaction Status Date / Time metronidazole [From Flagyl] Allergy Intermediate Skin Rash Verified 04/18/23 20:37 prednisone AdvReac Intermediate Agitation, Verified 04/18/23 20:37 hyperactivity,palpitations amoxicillin [From Augmentin] AdvReac Verified 04/18/23 20:37 clavulanic acid AdvReac Verified 04/18/23 20:37 [From Augmentin] fluconazole AdvReac anxiety Verified 04/18/23 20:37 steroids AdvReac Severe Agitation Uncoded 04/18/23 20:37 General Stated Complaint: Sorethroat ANITRA: 4 Review of Systems All systems reviewed & are unremarkable except as noted in HPI and below Constitutional Constitutional: Denies chills and Denies fever(s) Cardiovascular Cardiovascular: Denies chest pain and Denies dyspnea Respiratory Respiratory: Denies cough and Denies dyspnea Gastrointestinal Gastrointestinal: Denies abdominal pain and Denies vomiting Genitourinary Genitourinary: Denies dysuria Musculoskeletal Musculoskeletal: Denies joint swelling Integumentary/Breasts Skin/Breast: Denies rash PFSH All Active Problems (Updated 04/18/23 @ 21:39 by Johny Rahman MD) Pain in throat (Acute) Vaginal pain (Acute) Pelvic pain (Acute) Otalgia of left ear (Acute) Vitamin D deficiency (Acute) Menorrhagia with regular cycle (Acute) Hand numbness (Acute) Paresthesia of both feet (Acute) Patellofemoral arthralgia of both knees (Acute) Anxiety about health (Acute) Upper respiratory infection (Acute) Medical History COVID-19 (~10/12/21) Per antigen test x 2, 10/11 and 10/12/21. Neg pcr 10/09/21. Fibrocystic disease of breast (02/20/13) Family History Mother No problems noted. Father No problems noted. Maternal Grandmother Colon cancer Son Down syndrome Social History (Updated 04/16/23 @ 13:14 by Norma Wagner MD) Smoking/Tobacco Use Status: Former Tobacco Use tobacco type: cigarettes Quit Date: 09/16/11 Pack-years: 10 Smoking risk assessment performed?: Yes Alcohol Intake: current Alcohol Intake frequency: holidays/special occasions only Drug use: Never Substance use type: does not use Household members: children and other Details: from . Trying to work it out. 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 Do you feel safe at home: Yes Do you feel safe in your relationship?: Yes Additional Social history: Enjoys exercise - new spin bike; spending time with family. Female Reproductive History Menstrual control method: none and other History History 4 Para 3 Hx # Term Pregnancies Multiple births Hx # Pregnancies Ectopic pregnancies AB induced Hx Number of Living Children AB spontaneous 1 Exam Const General: no acute distress Orientation: alert HENMT Head: normal to inspection Ears: external ears normal General nose exam: external nose normal Mouth: tongue normal, moist mucous membranes and no drooling Eyes General: appearance normal, both eyes and all related structures Neck Neck: normal visual inspection Resp Effort & Inspection: normal respiratory effort and able to speak in complete sentences Cardio Rate: regular rate Skin General skin exam: no rashes or lesions noted Neuro General: patient alert and patient oriented x3 Extrem General: normal to inspection Psych Mental Status: mental status grossly normal Course Vital Signs Vital signs: Vital Signs Temperature 36.8 C 04/18/23 20:33 Pulse 73 04/18/23 20:33 Respiratory Rate 16 04/18/23 20:33 Blood Pressure 126/85 04/18/23 20:33 Pulse Oximetry 98 04/18/23 20:33 Temperature 36.8 C 04/18/23 20:33 Temperature Source Oral 04/18/23 20:33 Pulse 73 04/18/23 20:33 Respiratory Rate 16 04/18/23 20:33 Respiratory Effort Normal 04/18/23 20:33 Blood Pressure 126/85 04/18/23 20:33 Blood Pressure Position Sitting 04/18/23 20:33 Pulse Oximetry 98 04/18/23 20:33 Pain Level 4 04/18/23 20:33 Lab/Test Results Lab/Test Results: 04/18/23 20:42 Pharynx Group A Streptococcus Culture - Pending POC Strep Test-MAGGIE(Rapid) Start: 04/18/23 20:51 Freq: .Rapid Strep Test Status: Active Protocol: Document 04/18/23 20:51 (Rec: 04/18/23 20:51 [id number]) Strep test-MAGGIE(Rapid)-POC POC-Strep test-MAGGIE (Rapid) Negative POC-Strep test-MAGGIE (Rapid) Negative
[2023-04-18 21:16] LABS: Mono Screening Negative (Negative)
== END 2023-04-18 21:46 | disposition home or self-care (01) ==
PROVIDERS: Emergency Provider Emergency Medicine; PCP Nurse Practitioner Family
DX: R07.0 Pain in throat (principal)
CPT/HCPCS: 87880; 99282; 86308; 87081; 99283

== ENCOUNTER 2023-04-21 04:31 | Emergency (ER) | payer MEDICAID, SELFPAY ==
--- NOTE | 2023-04-21 04:34 | ED.GENADUL_ITS ---
Discharge Plan Disposition Patient Disposition: Home Discharge Details Clinical Impression: Feeling of chest tightness Primary Care Provider: Ludwig Tavares ED Provider: Nico Shepherd Home Meds and New Rx's Prescriptions: Continued multivitamin Tablet 1 tab PO DAILY lorazepam [Ativan] 1 mg tablet 1 mg PO DAILY PRN (Reason: anxiety) Qty: 2 0RF cholecalciferol (vitamin D3) [Vitamin D3] 2,000 UNIT capsule 4,000 unit PO DAILY albuterol sulfate [Ventolin HFA] 90 mcg/actuation HFA aerosol inhaler 1 - 2 puff IH Q4H PRN (Reason: shortness of breath or wheezing) Qty: 8.5 0RF Discharge Instructions Additional Instructions: Please read all of the information that accompanies these instructions. You were seen in the emergency department for your chest discomfort. Your blood work and ECG showed no sign of heart attack. Please schedule an appointment with your primary care provider later this week. Please return to the emergency department if pass out develop any fevers cough or any sweating associated with your symptoms. Discharge Data Discharge Date/Time-TO BE ENTERED AT DEPARTURE: 04/21/23 07:00 Medical Decision Making This is an overall very well-appearing normothermic and not tachycardic 38-year-old female with concerns over anxiety. Vital signs are reassuring against sepsis so I did not order lab blood, nor treat empirically with IV. Soft's nontender abdomen reassuring against intra-abdominal infection. No pain out of proportion to suggest necrotizing soft tissue infection. She is neurologically intact so I am not concerned for CVA. I do not feel the patient would be a candidate for tPA. Patient lacks risk factors for CVA so I do not feel that she requires an MRI. Furthermore she has had no visual changes nor weakness to suggest multiple sclerosis so I do not feel the patient requires an MRI. No fevers nor nuchal rigidity to suggest meningitis I do not feel that the patient requires an LP. No clonic clonic activity nor any loss of bowel nor bladder control so I do not feel that the patient requires an EEG. Patient did reportedly vomit yesterday so we will assess her electrolytes to ensure that she does not have any acute electrolyte abnormality. Given her chest tightness we will obtain an ECG and a single troponin based on the duration of time since her symptoms began and her lack of risk factors. 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 She has had no dysuria nor frequency to suggest UTI. No abnormal vaginal discharge to suggest PID. She also had mono and strep tests last week which were reassuring. I considered PE however the patient is PERC negative so I did not send a D-dimer. Will reassess following labs and ECG but anticipate patient will benefit from an empiric trial of expectant outpatient management. I asked health unit reactor operator Kay to have next week by her primary care provider. HEART SCORE Chest pain Diagnostic Protocol: [-History/Physical/Gestalt: Slightly Suspicious (0)] [- EKG: Nonspecific repolarization (+1)] [-AGE: less than 45 (0)] [-RISK FACTORS: No known risk factors (0)] [-TROPONIN: <= normal limit (0)] - TOTAL SCORE: 0 - Risk Factors: DM, current or recent smoker, HTN, HLD, family hx of CAD, obesity - INTERPRETATION: With a total score of 3 or less, risk of major cardiac event within six weeks 1.7%, likely lower with two negative troponins. [I explained to the patient that the risk of subsequent major cardiac event within 1 month is not 0, however risk predicted to be less than 2%. Patient verbalized understanding, accepts this risk and shared and the decision for discharge with PCP follow-up for further evaluation and management. They understand to return to the ED immediately with any worsening symptoms, new symptoms or other concerns.] 6 AM CBC with no anemia thrombocytopenia nor leukocytosis. hCG negative. Pending comprehensive metabolic panel troponin.Comprehensive metabolic panel with no BLAKE. No anion gap. No LFT abnormalities. Normal reassuring negative troponin not consistent with ACS. No diaphoresis nor hypertension to suggest pheochromocytoma. Patient understood her return medications and was discharged with outpatient PCP follow-up. HPI General Date/Time Provider Initiated Documentation: 04/21/23 04:34 . HPI Narrative: This is a 38-year-old female arriving via private vehicle in the emergency department chest tightness. Patient reports that she was concerned about her health over the past several days. She has also noticed tightness in her chest. She reports that her legs were shaking earlier today. She reports that she has not slept well in several days. She attempted to treat her symptoms at home with 0.25 mg of lorazepam but this did not improve her symptoms. She feels as if the lorazepam might have worsened her symptoms. She said that she had some abdominal pain yesterday and vomited once. She also endorses a central tense discomfort in her chest. She denies hypertension hyperlipidemia and diabetes. She has had no dysuria no frequency. She did not bite her tongue nor lose control of her bowels. She has been sleeping much lessas she has recently changed jobs. Related Data Home Medications Medication Instructions Recorded Confirmed cholecalciferol (vitamin D3) 50 4,000 unit PO DAILY 04/12/17 04/18/23 mcg (2,000 unit) capsule (Vitamin D3) albuterol sulfate 90 mcg/actuation 1 - 2 puff inhalation Q4H PRN 10/11/21 04/18/23 aerosol inhaler (Ventolin HFA) shortness of breath or wheezing #8.5 grams multivitamin 1 tab PO DAILY 12/01/21 04/18/23 lorazepam 1 mg tablet (Ativan) 1 mg PO DAILY PRN anxiety #2 tabs 04/09/23 04/18/23 Previous Rx's Medication Instructions Recorded albuterol sulfate 90 mcg/actuation 1 - 2 puff inhalation Q4H PRN 10/11/21 aerosol inhaler (Ventolin HFA) shortness of breath or wheezing #8.5 grams lorazepam 1 mg tablet (Ativan) 1 mg PO DAILY PRN anxiety #2 tabs 04/09/23 Allergies Allergy/AdvReac Type Severity Reaction Status Date / Time metronidazole [From Flagyl] Allergy Intermediate Skin Rash Verified 04/18/23 20:37 prednisone AdvReac Intermediate Agitation, Verified 04/18/23 20:37 hyperactivity,palpitations amoxicillin [From Augmentin] AdvReac Verified 04/18/23 20:37 clavulanic acid AdvReac Verified 04/18/23 20:37 [From Augmentin] fluconazole AdvReac anxiety Verified 04/18/23 20:37 steroids AdvReac Severe Agitation Uncoded 04/18/23 20:37 General ANITRA: 4 PFSH All Active Problems (Updated 04/21/23 @ 06:18 by Nico Shepherd MD) Pain in throat (Acute) Feeling of chest tightness (Acute) Vaginal pain (Acute) Pelvic pain (Acute) Otalgia of left ear (Acute) Vitamin D deficiency (Acute) Menorrhagia with regular cycle (Acute) Hand numbness (Acute) Paresthesia of both feet (Acute) Patellofemoral arthralgia of both knees (Acute) Anxiety about health (Acute) Upper respiratory infection (Acute) Medical History COVID-19 (~10/12/21) Per antigen test x 2, 10/11 and 10/12/21. Neg pcr 10/09/21. Fibrocystic disease of breast (02/20/13) Family History Mother No problems noted. Father No problems noted. Maternal Grandmother Colon cancer Son Down syndrome Social History (Updated 04/16/23 @ 13:14 by Norma Wagner MD) Smoking/Tobacco Use Status: Former Tobacco Use tobacco type: cigarettes Quit Date: 09/16/11 Pack-years: 10 Smoking risk assessment performed?: Yes Alcohol Intake: current Alcohol Intake frequency: holidays/special occasions only Drug use: Never Substance use type: does not use Household members: children and other Details: from . Trying to work it out. 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 Do you feel safe at home: Yes Do you feel safe in your relationship?: Yes Additional Social history: Enjoys exercise - new [employer] bike; spending time with family. Female Reproductive History Menstrual control method: none and other History History 4 Para 3 Hx # Term Pregnancies Multiple births Hx # Pregnancies Ectopic pregnancies AB induced Hx Number of Living Children AB spontaneous 1 Exam Narrative Exam Narrative: General: Well-appearing in no acute distress speaking in complete sentences. Head: Normocephalic, atraumatic. Eye: Extraocular eye movements intact. No conjunctival injection. No scleral icterus. Ear, nose, mouth, throat: Grossly normal inspection. Normal voice, handling secretions normally. Neck: Trachea midline. Cardiovascular: Well-perfused distal extremities. Regular rate and rhythm. Respiratory: Nonlabored respiration. Clear lungs. Gastrointestinal: Nondistended abdomen. Soft nontender. Musculoskeletal: No edema. Moving all 4 extremities spontaneously. Skin: Normal for age and race, grossly normal temperature and turgor. No acute rash. Neurologic: Alert and appropriate, no apparent acute deficits. Out of 5 bilateral lower extremity strength. Psychiatric: Mood and manner are appropriate. Grooming and personal hygiene are appropriate.
[2023-04-21 04:35] VITALS: BP 126/88; PULSE 86; RESP 18; TEMP 37.1; O2SAT 98
--- NOTE | 2023-04-21 05:00 | RT.EKG_ITS ---
APPROVED REPORT Exam: Resting ECG Reason for Exam: Palpitations Patient Location: E HR:72 bpm ECG Measurements Heart Rate 72 AXIS AZ 135 P 76 QRSd 80 QRS 52 QT 379 T 8 QTc 416 Conclusion Sinus rhythm...normal P axis, V-rate 60- 99 Probable left atrial enlargement...P >50mS, <-0.10mV V1 Narrow complex normal sinus rhythm at a rate of 72. Normal axis. Intervals within normal limits. M ild ST segment flattening in lead III. Sub-[address] segment elevation in aVL similar to prior. Pr ior dated earlier this year. No acute injury pattern.
--- NOTE | 2023-04-21 05:18 | NUR.NOTE ---
Pt referral for PCP for chest tightness within [address] Shepherd
[2023-04-21 05:44] LABS: Abs Immature Grans 0.01 10^3/uL (0.0-0.06); Absolute Basophil Count 0.02 10^3/uL (0.0-0.2); Absolute Eosinophil Count 0.04 10^3/uL (0.0-0.7); Absolute Lymphocyte Count 1.29 10^3/uL (1.2-3.4); Absolute Monocyte Count 0.48 10^3/uL (0.1-0.8); Absolute Neutrophil Count 4.15 10^3/uL (1.2-6.7); Basophils % 0.3; Eosinophils % 0.7; HCT 39.6 % (36.0-46.0); HGB 13.6 g/dL (11.2-15.7); Immature Grans % 0.2; Lymphocytes % 21.5; MCH 29.4 pg (27.0-33.0); MCHC 34.3 % (32.0-36.0); MCV 86 fL (80-95); MPV 9.5 fL (8.0-11.0); Neutrophils % 69.3; Platelet Count 249 10^3/uL (130-400); RBC 4.63 10^6/uL (3.93-5.22); RDW 11.8 % (11.7-14.6); RDW-SD 36.6 fL; WBC 5.99 10^3/uL (4.4-10.8)
[2023-04-21 05:55] LABS: HCG Qual (Serum) Negative
[2023-04-21 06:01] LABS: ALT 24 U/L (14-59); AST 18 U/L (15-37); Albumin 4.2 g/dL (3.4-5.0); Alkaline Phosphatase 76 U/L (46-116); Anion Gap 9.4 mmol/L (3-11); BUN 11 mg/dL (7-18); Bilirubin, Total 0.6 mg/dL (0.2-1.0); CO2 26.6 mmol/L (21.0-32.0); CREATININE 0.6 mg/dL (0.55-1.02); Chloride 103 mmol/L (98-107); Estimated GFR 118.49 (mL/min/1.73m2); Glucose 109 mg/dL (74-106); Potassium 3.5 mmol/L (3.5-5.1); Sodium 139 mmol/L (136-145); Total Protein 7.4 g/dL (6.4-8.2)
[2023-04-21 06:05] LABS: Troponin I < 50 ng/L (<or=60)
--- NOTE | 2023-04-22 10:46 | CMPROGNOTE_ITS ---
Date of service: 04/22/23 Time of Service: 10:46 Care Management Progress Note Progress Note Text Progress Note Text: CM faxed referral to [facility] requesting ED follow up appointment. [facility] to contact patient directly.
== END 2023-04-21 07:00 | disposition home or self-care (01) ==
PROVIDERS: Emergency Provider Emergency Medicine; PCP Nurse Practitioner Family
DX: R07.9 Chest pain, unspecified (principal)
CPT/HCPCS: 80053; 93005; 99283; 84484; 84703; 85025; 93010

== ENCOUNTER → 2023-05-01 20:00 | Outpatient (CLI) | payer MEDICAID, SELFPAY ==
--- NOTE | 2023-05-01 20:25 | DI.RAD_ITS ---
Exam(s) XR CHEST 2V PA LATERAL EXAM: XR CHEST 2V PA LATERAL CLINICAL HISTORY: Chest tightness, r/o underlying pneumonia/fluid in lungs. TECHNIQUE: 2D digital imaging was performed. COMPARISON: CR XR CHEST 2V PA LATERAL from 01/22/2023 FINDINGS: 2 views: Heart size is normal. The mediastinum is not widened. Lungs are clear. No infiltrates nor pleural effusions. IMPRESSION: No acute pulmonary findings. DATA REPOSITORY: RADIATION DOSE DELIVERED:
--- NOTE | 2023-05-01 20:37 | DI.VRAD_ITS ---
PROCEDURE INFORMATION: Exam: XR Chest Exam date and time: 05/01/2023 8:22 PM Age: 38 years old Clinical indication: Other: Chest tightness, R/O underlying pneumonia/fluid in lungs TECHNIQUE: Imaging protocol: Radiologic exam of the chest. Views: 2 views. COMPARISON: CR XR CHEST 2V PA LATERAL 01/22/2023 2:37 PM FINDINGS: Lungs: Unremarkable. No consolidation. Pleural spaces: Unremarkable. No pleural effusion. No pneumothorax. Heart/Mediastinum: Unremarkable. No cardiomegaly. Bones/joints: Unremarkable. IMPRESSION: No acute findings. Dictated and Authenticated by: Hema Cantor MD. Ordering:KATHYA Eastman MD
== END ==
PROVIDERS: PCP Nurse Practitioner Family; Visit Provider Physician Assistant Medical
DX: R07.89 Other chest pain (principal)
CPT/HCPCS: 71046

== ENCOUNTER 2023-05-01 21:28 | Outpatient (REF) | payer MEDICAID, SELFPAY ==
[2023-05-01 22:07] LABS: Abs Immature Grans 0.01 10^3/uL (0.0-0.06); Absolute Basophil Count 0.04 10^3/uL (0.0-0.2); Absolute Eosinophil Count 0.07 10^3/uL (0.0-0.7); Absolute Lymphocyte Count 2.45 10^3/uL (1.2-3.4); Absolute Monocyte Count 0.55 10^3/uL (0.1-0.8); Absolute Neutrophil Count 2.32 10^3/uL (1.2-6.7); Basophils % 0.7; Eosinophils % 1.3; HCT 39.1 % (36.0-46.0); HGB 13.3 g/dL (11.2-15.7); Immature Grans % 0.2; MCV 85 fL (80-95); MPV 10.2 fL (8.0-11.0); Monocytes % 10.1; Neutrophils % 42.7; Platelet Count 320 10^3/uL (130-400); RBC 4.58 10^6/uL (3.93-5.22); RDW 11.9 % (11.7-14.6); RDW-SD 37.1 fL; WBC 5.44 10^3/uL (4.4-10.8)
[2023-05-01 22:35] LABS: Hemoglobin A1C 5.2 % (<5.7)
[2023-05-01 22:38] LABS: ALT 15 U/L (14-59); AST 11 U/L (15-37); Albumin 4.1 g/dL (3.4-5.0); Alkaline Phosphatase 72 U/L (46-116); Anion Gap 11.4 mmol/L (3-11); BUN 12 mg/dL (7-18); Bilirubin, Total 0.4 mg/dL (0.2-1.0); CO2 26.6 mmol/L (21.0-32.0); CREATININE 0.6 mg/dL (0.55-1.02); Chloride 105 mmol/L (98-107); Estimated GFR 118.49 (mL/min/1.73m2); Glucose 126 mg/dL (74-106); Potassium 3.7 mmol/L (3.5-5.1); Sodium 143 mmol/L (136-145); TSH (W/Ref FT4) 1.27 uIU/mL (0.36-3.74); Total Protein 7.4 g/dL (6.4-8.2)
[2023-05-01 23:08] LABS: Iron 43 ug/dL (50-170)
== END 2023-05-01 21:29 | disposition home or self-care (01) ==
LOC: LBN 21:28
PROVIDERS: PCP Nurse Practitioner Family; Visit Provider Physician Assistant Medical
DX: R07.89 Other chest pain (principal)
CPT/HCPCS: 80053; 83036; 83540; 84443; 85025

== ENCOUNTER 2023-05-16 20:54 | Outpatient (REF) | payer MEDICAID, SELFPAY | END 2023-05-16 20:55 | disposition home or self-care (01) | LOC: LBN 20:54 | PROVIDERS: PCP Nurse Practitioner Family; Visit Provider Naturopath | DX: J02.9 Acute pharyngitis, unspecified (principal); R53.83 Other fatigue | CPT/HCPCS: 87081 ==

== ENCOUNTER 2023-06-06 03:43 | Outpatient (CLI) | payer MEDICAID, SELFPAY ==
[2023-06-06 12:24] LABS: HCT 39.1 % (36.0-46.0); HGB 13.1 g/dL (11.2-15.7); MCH 29.2 pg (27.0-33.0); MCHC 33.5 % (32.0-36.0); MCV 87 fL (80-95); MPV 9.9 fL (8.0-11.0); Platelet Count 291 10^3/uL (130-400); RBC 4.49 10^6/uL (3.93-5.22); RDW 12.3 % (11.7-14.6); RDW-SD 39.1 fL; WBC 5.62 10^3/uL (4.4-10.8)
[2023-06-06 12:43] LABS: Hemoglobin A1C 5.2 % (<5.7)
[2023-06-06 13:09] LABS: Iron 42 ug/dL (50-170)
== END 2023-06-06 03:44 | disposition home or self-care (01) ==
LOC: LOS 03:44
PROVIDERS: PCP Nurse Practitioner Family; Visit Provider Nurse Practitioner Family
DX: N92.0 Excessive and frequent menstruation with regular cycle (principal); Z86.32 Personal history of gestational diabetes
CPT/HCPCS: 36415; 85027; 83036; 83540

== ENCOUNTER 2023-06-29 15:24 | Outpatient (REF) | payer MEDICAID, SELFPAY ==
[2023-06-29 15:34] LABS: Abs Immature Grans 0.01 10^3/uL (0.0-0.06); Absolute Basophil Count 0.04 10^3/uL (0.0-0.2); Absolute Eosinophil Count 0.06 10^3/uL (0.0-0.7); Absolute Lymphocyte Count 1.71 10^3/uL (1.2-3.4); Absolute Monocyte Count 0.51 10^3/uL (0.1-0.8); Absolute Neutrophil Count 2.85 10^3/uL (1.2-6.7); Basophils % 0.8; Eosinophils % 1.2; HCT 38.3 % (36.0-46.0); HGB 13.1 g/dL (11.2-15.7); Immature Grans % 0.2; MCH 29.7 pg (27.0-33.0); MCHC 34.2 % (32.0-36.0); MCV 87 fL (80-95); MPV 10.7 fL (8.0-11.0); Monocytes % 9.8; Platelet Count 306 10^3/uL (130-400); RBC 4.41 10^6/uL (3.93-5.22); RDW 12.3 % (11.7-14.6); RDW-SD 39.2 fL; WBC 5.18 10^3/uL (4.4-10.8)
[2023-07-01 22:50] LABS: Bartonella Henselae IgG <1:128 titer (<1:128); Bartonella Henselae IgM <1:20 titer (<1:20); Bartonella Quintana IgG <1:128 titer (<1:128); Bartonella Quintana IgM <1:20 titer (<1:20)
== END 2023-06-29 15:25 | disposition home or self-care (01) ==
LOC: LBN 15:24
PROVIDERS: PCP Nurse Practitioner Family; Visit Provider Nurse Practitioner Family
DX: R20.2 Paresthesia of skin (principal); G44.52 New daily persistent headache (NDPH)
CPT/HCPCS: 85025; 86611

== ENCOUNTER 2023-07-13 12:58 | Outpatient (REF) | payer MEDICAID, SELFPAY ==
[2023-07-13 15:11] LABS: BUN 17 mg/dL (7-18); CREATININE 0.6 mg/dL (0.55-1.02); Calcium 8.9 mg/dL (8.5-10.1); Chloride 104 mmol/L (98-107); Estimated GFR 118.49 (mL/min/1.73m2); Glucose 85 mg/dL (74-106); Potassium 4.1 mmol/L (3.5-5.1); Sodium 139 mmol/L (136-145)
[2023-07-13 15:15] LABS: Iron 60 ug/dL (50-170)
== END 2023-07-13 12:59 | disposition home or self-care (01) ==
LOC: LBN 12:58
PROVIDERS: PCP Nurse Practitioner Family; Visit Provider Nurse Practitioner Family
DX: R10.9 Unspecified abdominal pain (principal); E61.1 Iron deficiency
CPT/HCPCS: 80048; 83540

== ENCOUNTER 2023-07-22 21:30 | Outpatient (REF) | payer MEDICAID, SELFPAY | END 2023-07-22 21:31 | disposition home or self-care (01) | LOC: LBN 21:30 | PROVIDERS: PCP Nurse Practitioner Family; Visit Provider Nurse Practitioner Family | DX: J02.9 Acute pharyngitis, unspecified (principal) | CPT/HCPCS: 87070 ==

== ENCOUNTER 2023-07-25 14:26 | Outpatient (REF) | payer MEDICAID, SELFPAY | END 2023-07-25 14:27 | disposition home or self-care (01) | LOC: LBN 14:26 | PROVIDERS: PCP Nurse Practitioner Family; Visit Provider Obstetrics & Gynecology | DX: R10.2 Pelvic and perineal pain (principal) | CPT/HCPCS: 87480; 87510; 87660 ==

== ENCOUNTER 2023-08-10 14:49 | Outpatient (REF) | payer MEDICAID, SELFPAY | END 2023-08-10 14:50 | disposition home or self-care (01) | LOC: LBN 14:49 | PROVIDERS: PCP Nurse Practitioner Family; Visit Provider Nurse Practitioner Family | DX: J02.9 Acute pharyngitis, unspecified (principal) | CPT/HCPCS: 87070 ==

== ENCOUNTER 2023-08-27 20:25 | Outpatient (REF) | payer MEDICAID, SELFPAY | END 2023-08-27 20:26 | disposition home or self-care (01) | LOC: LBN 20:25 | PROVIDERS: PCP Nurse Practitioner Family; Visit Provider Naturopath | DX: R10.2 Pelvic and perineal pain (principal); N76.1 Subacute and chronic vaginitis | CPT/HCPCS: 87491; 87563; 87591; 87081; 87480; 87510; 87660 ==

== ENCOUNTER → 2023-09-11 00:59 | Outpatient (CLI) | payer MEDICAID, SELFPAY ==
--- NOTE | 2023-09-11 | DI.US_ITS ---
Exam(s) US PELVIS TRANSVAGINAL EXAM: US PELVIS TRANSVAGINAL CLINICAL HISTORY: pelvic pain,u/s at [facility] mentioned adenomyosis,r10.2,?endometrioma or cyst TECHNIQUE: Ultrasound of the pelvis was performed both transabdominal and transvaginal. COMPARISON: CT CT ABDOMEN PELVIS W from 11/22/2021 US US PELVIC ULTRASOUND from 03/06/2023 FINDINGS: UTERUS: Anteverted Measures 9.2 cm length x 5 cm AP x 5.6 cm wide. There are no uterine fibroids. Endometrial thickness measures 6 mm. There is no fluid in the endometrial canal. CERVIX: There are no obvious nabothian cysts. RIGHT OVARY: Measures 3.5 x 2.0 x 2.8 cm. Contains multiple follicle cysts measuring up to 1.4 cm size LEFT OVARY: Measures 2.8 x 1.5 x 1.5 cm Contains an echogenic structure measuring 6 x 5 x 7 mm. Probably corpus luteal cyst.. Also contains f ollicle cyst measuring up to 1.2 cm size CUL-DE-SAC: No free fluid evident. IMPRESSION: 1. Normal appearing uterus and age-appropriate endometrium. 2. In addition to follicular cysts in the ovaries there is peripherally echogenic 7 x 6 mm structure in the left ovary which is probably a hemorrhagic or possibly a corpus luteal cyst. 3. No free fluid evident in the adnexal regions and cul-de-sac. DATA REPOSITORY:
== END ==
PROVIDERS: PCP Nurse Practitioner Family; Visit Provider Obstetrics & Gynecology Gynecology
DX: N83.02 Follicular cyst of left ovary (principal)
CPT/HCPCS: 76830; 76856

== ENCOUNTER 2023-09-18 13:22 | Outpatient (REF) | payer MEDICAID, SELFPAY ==
[2023-09-18 21:05] LABS: Abs Immature Grans 0.01 10^3/uL (0.0-0.06); Absolute Basophil Count 0.03 10^3/uL (0.0-0.2); Absolute Eosinophil Count 0.09 10^3/uL (0.0-0.7); Absolute Lymphocyte Count 1.85 10^3/uL (1.2-3.4); Absolute Monocyte Count 0.52 10^3/uL (0.1-0.8); Absolute Neutrophil Count 2.76 10^3/uL (1.2-6.7); Basophils % 0.6; Eosinophils % 1.7; HCT 37.1 % (36.0-46.0); HGB 12.9 g/dL (11.2-15.7); Immature Grans % 0.2; Lymphocytes % 35.2; MCH 30.2 pg (27.0-33.0); MCHC 34.8 % (32.0-36.0); MCV 87 fL (80-95); MPV 10.7 fL (8.0-11.0); Monocytes % 9.9; Neutrophils % 52.4; Platelet Count 262 10^3/uL (130-400); RBC 4.27 10^6/uL (3.93-5.22); RDW 11.9 % (11.7-14.6); RDW-SD 37.9 fL; WBC 5.26 10^3/uL (4.4-10.8)
[2023-09-18 21:20] LABS: Iron 79 ug/dL (50-170)
[2023-09-18 22:04] LABS: Vitamin D 25 Total 23.7 ng/mL (30-100)
[2023-09-19 14:41] LABS: Chlamydia Result Negative (Negative); GC Result Negative (Negative)
[2023-09-20 21:27] LABS: Mycoplasma genitalium Result Negative (Negative)
== END 2023-09-18 13:23 | disposition home or self-care (01) ==
LOC: LBN 13:22
PROVIDERS: PCP Nurse Practitioner Family; Visit Provider Obstetrics & Gynecology Gynecology
DX: M54.2 Cervicalgia (principal); R10.2 Pelvic and perineal pain; E61.1 Iron deficiency
CPT/HCPCS: 82306; 87491; 87563; 87591; 83540; 85025

== ENCOUNTER 2024-01-27 14:00 | Outpatient (CLI) | payer MEDICAID, SELFPAY ==
[2024-01-27 12:45] LABS: HCT 40.3 % (36.0-46.0); HGB 13.8 g/dL (11.2-15.7); MCH 30.3 pg (27.0-33.0); MCHC 34.2 % (32.0-36.0); MCV 88 fL (80-95); MPV 9.7 fL (8.0-11.0); Platelet Count 259 10^3/uL (130-400); RBC 4.56 10^6/uL (3.93-5.22); RDW 11.9 % (11.7-14.6); RDW-SD 38.2 fL; WBC 4.76 10^3/uL (4.4-10.8)
[2024-01-27 13:32] LABS: Iron 89 ug/dL (50-170)
[2024-01-27 13:45] LABS: Ferritin 22 ng/mL (8-252)
== END 2024-01-27 14:01 | disposition home or self-care (01) ==
LOC: LBO 14:01
PROVIDERS: PCP Nurse Practitioner Family; Visit Provider Nurse Practitioner Family
DX: E61.1 Iron deficiency (principal)
CPT/HCPCS: 36415; 85027; 82728; 83540

== ENCOUNTER 2024-05-06 01:06 | Outpatient (CLI) | payer MEDICAID, SELFPAY ==
--- NOTE | 2024-05-06 07:45 | DI.RAD_ITS ---
Exam(s) XR KNEE LT 3V AP,LAT,MARTINEZ EXAM: XR KNEE LT 3V AP,LAT,MARTINEZ CLINICAL HISTORY: persistent pain in knees, no improvement with PT,m22.2x1,m22.2x2,. TECHNIQUE: 2D digital imaging was performed of the left knee. Three images were obtained. AP, late ral and PA tunnel views were obtained. COMPARISON: No priors for comparison. FINDINGS: BONES: No acute fracture is present. No bony destructive lesion is seen. JOINTS: The knee is normally aligned. No joint effusion is seen. No loose body. SOFT TISSUE: Normal. IMPRESSION: Normal radiographs of the left knee. DATA REPOSITORY: RADIATION DOSE DELIVERED:
--- NOTE | 2024-05-06 07:45 | DI.RAD_ITS ---
Exam(s) XR KNEE RT 3V AP,LAT,MARTINEZ EXAM: XR KNEE RT 3V AP,LAT,MARTINEZ CLINICAL HISTORY: persistent pain in knees, no improvement with PT,m22,2x1,m22.2x2. TECHNIQUE: 2D digital imaging was performed of the right knee. Three views obtained. AP, lateral an d PA tunnel views were obtained. COMPARISON: CR XR KNEE RT 3V AP,LAT,MARTINEZ from 03/29/2021 FINDINGS: BONES: No acute fracture is present. No bony destructive lesion is seen. JOINTS: The knee is normally aligned. No joint effusion is seen. SOFT TISSUE: Normal. IMPRESSION: Unremarkable radiographs of the right knee. DATA REPOSITORY: RADIATION DOSE DELIVERED:
== END 2024-05-06 01:26 ==
LOC: DI 01:07
PROVIDERS: PCP Nurse Practitioner Family; Visit Provider Nurse Practitioner Family
DX: M22.2X1 Patellofemoral disorders, right knee (principal); M22.2X2 Patellofemoral disorders, left knee
CPT/HCPCS: 73562

== ENCOUNTER 2024-05-20 20:04 | Outpatient (REF) | payer MEDICAID, SELFPAY ==
[2024-05-20 21:26] LABS: Abs Immature Grans 0.01 10^3/uL (0.0-0.06); Absolute Basophil Count 0.04 10^3/uL (0.0-0.2); Absolute Eosinophil Count 0.09 10^3/uL (0.0-0.7); Absolute Lymphocyte Count 2.24 10^3/uL (1.2-3.4); Absolute Monocyte Count 0.58 10^3/uL (0.1-0.8); Absolute Neutrophil Count 2.17 10^3/uL (1.2-6.7); Basophils % 0.8 %; Eosinophils % 1.8 %; HGB 13.5 g/dL (11.2-15.7); Immature Grans % 0.2 %; Lymphocytes % 43.7 %; MCH 30.2 pg (27.0-33.0); MCHC 33.8 % (32.0-36.0); MCV 90 fL (80-95); MPV 9.9 fL (8.0-11.0); Monocytes % 11.3 %; Neutrophils % 42.2 %; Platelet Count 259 10^3/uL (130-400); RBC 4.47 10^6/uL (3.93-5.22); RDW-SD 39.5 fL; WBC 5.13 10^3/uL (4.4-10.8)
[2024-05-20 21:37] LABS: ALT 23 U/L (14-59); AST 19 U/L (15-37); Alkaline Phosphatase 69 U/L (46-116); Anion Gap 5.5 mmol/L (3-11); BUN 15 mg/dL (7-18); Bilirubin, Total 0.41 mg/dL (0.2-1.0); CO2 28.5 mmol/L (21.0-32.0); CREATININE 0.6 mg/dL (0.55-1.02); Chloride 105 mmol/L (98-107); Estimated GFR 117.75 (mL/min/1.73m2); Glucose 99 mg/dL (74-106); Lipase 57 U/L (16-77); Potassium 4.2 mmol/L (3.5-5.1); Sodium 139 mmol/L (136-145); Total Protein 7.3 g/dL (6.4-8.2)
[2024-05-20 21:41] LABS: Calcium 8.7 mg/dL (8.5-10.1)
== END 2024-05-20 20:05 | disposition home or self-care (01) ==
LOC: LBN 20:04
PROVIDERS: PCP Nurse Practitioner Family; Visit Provider Physician Assistant Medical
DX: R10.9 Unspecified abdominal pain (principal)
CPT/HCPCS: 80053; 83690; 85025

== ENCOUNTER 2024-05-22 00:22 | Outpatient (CLI) | payer MEDICAID, SELFPAY ==
--- NOTE | 2024-05-22 | DI.US_ITS ---
Exam(s) US PELVIS TRANSVAGINAL EXAM: US PELVIS TRANSVAGINAL CLINICAL HISTORY: ABD PAIN, R10.9,PELVIC PAIN R10.2. TECHNIQUE: Transabdominal and transvaginal pelvic ultrasound was performed using standard protocol. COMPARISON: US US PELVIC ULTRASOUND from 03/06/2023 FINDINGS: UTERUS: Position: Retroflexed. Size: 7.9 long by 4.8 AP by 6.1 transverse cm Endometrium: 0.9 cm. Normal for patient's menstrual status. Myometrium: Unremarkable. Cervix: Unremarkable. OVARIES: Right: 2.8 x 1.6 x 2.7 cm Cyst or mass: No suspicious cystic or solid masses. Left: 2.1 x 1.3 x 2.1 cm Cyst or mass: There is again seen a 0.7 x 0.5 x 0.4 cm echogenic nodule in the left ovary. It is unc hanged. This may represent a benign lesion such as a dermoid or small endometrioma. DOPPLER: Color: Symmetric and uniform flow to both ovaries. CUL-DE-SAC: Free fluid: None. Other: None. IMPRESSION: 1. Normal-appearing uterus with endometrial stripe within normal limits. 2. Stable 7 mm echogenic nodule in the left ovary. This may represent a benign lesion such as a derm oid or small endometrioma. DATA REPOSITORY:
== END 2024-05-22 00:42 ==
PROVIDERS: PCP Nurse Practitioner Family; Visit Provider Physician Assistant Medical
DX: R10.2 Pelvic and perineal pain (principal)
CPT/HCPCS: 76830; 76856

== ENCOUNTER 2024-05-26 01:14 | Outpatient (CLI) | payer MEDICAID, SELFPAY ==
--- NOTE | 2024-05-26 08:50 | DI.US_ITS ---
Exam(s) US ABDOMEN EXAM: US ABDOMEN CLINICAL HISTORY: ABDOMINAL PAIN, R10.9 TECHNIQUE: Ultrasound abdomen performed using standard protocol. COMPARISON: CT CT ABDOMEN PELVIS W from 11/22/2021 FINDINGS: LIVER: Normal size and echogenicity. No focal liver lesions are seen. GALLBLADDER: 2.2 centimeter mobile gallstone again noted.. No evidence of wall thickening. No perich olecystic fluid identified. ORTIZ'S SIGN: Negative. BILIARY SYSTEM: No intrahepatic or extrahepatic biliary ductal dilation. KIDNEYS: Kidneys are symmetric in size. No evidence of renal calculi. No evidence of hydronephrosis. No renal mass or cyst identified. PANCREAS: Normal where visualized. SPLEEN: Not enlarged. ABDOMINAL AORTA AND IVC: Visualized portions normal caliber. ASCITES: None seen. IMPRESSION: Single mobile gallstone. No evidence of gallbladder wall thickening or biliary dilatation. DATA REPOSITORY:
== END 2024-05-26 01:34 ==
LOC: DI 01:14
PROVIDERS: PCP Nurse Practitioner Family; Visit Provider Physician Assistant Medical
DX: R10.9 Unspecified abdominal pain (principal)
CPT/HCPCS: 76700

== ENCOUNTER 2024-06-23 11:10 | Outpatient (CLI) | payer MEDICAID, SELFPAY ==
[2024-06-23 12:49] LABS: D-Dimer 234 ng/mlFEU (<500)
== END 2024-06-23 11:11 | disposition home or self-care (01) ==
LOC: LBO 11:10
PROVIDERS: Nurse Practitioner Family; PCP Nurse Practitioner Family; Visit Provider Nurse Practitioner Family
DX: U07.1 COVID-19 (principal); R68.89 Other general symptoms and signs; R05.9 Cough, unspecified; M54.9 Dorsalgia, unspecified
CPT/HCPCS: 36415; 85379

== ENCOUNTER 2024-06-23 11:13 | Outpatient (CLI) | payer MEDICAID, SELFPAY ==
--- NOTE | 2024-06-23 10:45 | DI.RAD_ITS ---
Exam(s) XR CHEST 2V PA LATERAL EXAM: XR CHEST 2V PA LATERAL CLINICAL HISTORY: evaluate pathology COUGH R05.9. TECHNIQUE: 2D digital imaging was performed. COMPARISON: CR,XR XR CHEST 2V PA LATERAL from 05/01/2023 FINDINGS: 2 views: Heart size is normal. The mediastinum is not widened. Lungs are clear. No confluent infiltrates nor pleural effusions. Bone density lower left lung probably the breast nipple shadow. IMPRESSION: No acute pulmonary findings. DATA REPOSITORY: RADIATION DOSE DELIVERED:
== END 2024-06-23 11:33 ==
LOC: DI 11:13
PROVIDERS: PCP Nurse Practitioner Family; Visit Provider Nurse Practitioner Family
DX: R05.9 Cough, unspecified (principal)
CPT/HCPCS: 71046

== ENCOUNTER 2024-07-28 15:29 | Outpatient (REF) | payer MEDICAID, SELFPAY ==
[2024-07-30 12:21] LABS: Chlamydia Result Negative (Negative); GC Result Negative (Negative)
== END 2024-07-28 15:30 | disposition home or self-care (01) ==
LOC: LBN 15:29
PROVIDERS: PCP Nurse Practitioner Family; Visit Provider Obstetrics & Gynecology
DX: N89.8 Other specified noninflammatory disorders of vagina (principal)
CPT/HCPCS: 87491; 87591

== ENCOUNTER 2024-09-18 15:18 | Outpatient (REF) | payer MEDICAID, SELFPAY ==
--- NOTE | 2024-09-18 15:15 | PAPFT_PTH ---
PATIENT: Geovanni Elliott LOC: [facility] U#:[id number] AGE/SX: 39/F ROOM: RE09/18/[address]: Norma Wagner : 1985 BED: DIS: 09/18/2024 SPEC #: [id number] RECD: 09/18/24 17:26 STATUS: MELVA LOVE #: [id number] DAVID: 09/18/24 15:[address]: Norma Wagner DEPT: [facility] Cytology RECD BY: Anne Salcedo ENTERED: 09/18/24 17:26 SP TYPE: PAPFT OTHR DR: Ludwig Elise DNP Tissues: 1 - CX/ENDOCX FOR PAP SMEARS Procedures: PAP THIN PREP/[facility] Screening HPV DNA PROBE Comments: [id number] (HPV 16 & 18/45)
== END 2024-09-18 15:19 | disposition home or self-care (01) ==
LOC: LBN 15:18
PROVIDERS: PCP Nurse Practitioner Family; Visit Provider Obstetrics & Gynecology Gynecology
DX: Z01.419 Encounter for gynecological examination (general) (routine) without abnormal findings (principal); L29.0 Pruritus ani
CPT/HCPCS: 88142; 87624

== ENCOUNTER 2024-12-04 13:37 | Emergency (ER) | payer MEDICAID, SELFPAY ==
[2024-12-04 13:50] VITALS: BP 104/70; PULSE 114; RESP 22; TEMP 36.7; O2SAT 97
--- NOTE | 2024-12-04 14:30 | DI.US_ITS ---
Exam(s) US PELVIS TRANSVAGINAL EXAM: US PELVIS TRANSVAGINAL CLINICAL HISTORY: rt adnexal pain. TECHNIQUE: Transabdominal and transvaginal pelvic ultrasound was performed using standard protocol. COMPARISON: US US PELVIS TRANSVAGINAL from 05/22/2024 FINDINGS: UTERUS: Position: Anteverted. Size: 9.3 long by 5.2 AP by 6.3 transverse cm Endometrium: 1.0 cm. Normal for patient's menstrual status. Myometrium: Unremarkable. Cervix: Unremarkable. OVARIES: Right: 2.7 x 1.9 x 1.9 cm Cyst or mass: No suspicious cystic or solid masses. Left: 2.9 x 2.0 x 2.2 cm Cyst or mass: No suspicious cystic or solid masses. The 6 mm echogenic nodule in the left ovary is u nchanged. Again this may represent a small dermoid or small endometrioma. DOPPLER: Color: Symmetric and uniform flow to both ovaries. CUL-DE-SAC: Free fluid: None. Other: None. IMPRESSION: 1. Normal-appearing uterus with endometrial stripe within normal limits. 2. The ovaries are grossly unremarkable and unchanged. There is normal arterial and venous blood nica w to both ovaries. DATA REPOSITORY:
[2024-12-04 14:45] LABS: Bilirubin Negative (Negative); Blood Negative (Negative); Clarity Clear (Clear); Glucose Negative (Negative); Ketones Negative (Negative); Leukocyte Esterase Negative (Negative); Nitrite Negative (Negative); Specific Gravity 1.015 (1.005-1.025); Urobilinogen 0.2 mg/dL (Up to 0.2)
--- NOTE | 2024-12-04 15:30 | DI.CT_ITS ---
Exam(s) CT ABDOMEN PELVIS W EXAM: CT ABDOMEN PELVIS W CLINICAL HISTORY: rt lower abd and pelvic pain TECHNIQUE: Imaging Protocol: Axial computed tomography images with coronal and sagittal reformatted images were created and reviewed. CONTRAST MATERIAL: Intravenous: Omnipaque 350 Contrast volume:75 mL Oral: No COMPARISON: CT CT ABDOMEN PELVIS W from 11/22/2021 US US PELVIS TRANSVAGINAL from 12/04/2024 FINDINGS: ABDOMEN: Lung Bases: No acute abnormality. Liver: Normal density. No measurable mass. Portal, Superior Mesenteric, and Splenic Veins: Unremarkable. Gallbladder and Biliary Tract: There is cholelithiasis. The gallbladder is contracted. No biliary d uctal dilatation is present. Pancreas: Normal density, no abnormal calcifications or inflammatory process. Spleen: Normal. Adrenals: No masses seen. Kidneys: Normal size, contour and axis. No radiodense stones or obstructive uropathy. There is a roun d 3 mm fat density lesion in the right kidney. It is most suggestive of a benign lesion such as an a ngiomyolipoma. No suspicious renal masses are present. Abdominal Aorta: Abdominal portion non-dilated. Bowel: There are few diverticula in the colon but no evidence of acute diverticulitis. There is mild wall thickening seen in the small bowel in the left upper quadrant which may represent an enteritis. There is no other bowel wall thickening. No evidence of obstruction. No evidence of appendicitis. Peritoneal Cavity: No ascites, collection or mesenteric inflammatory response. No free air. Lymph Nodes: Within normal limits. Bones: Within normal limits for the patient's age. Soft Tissues: Unremarkable. PELVIS: Bladder: Symmetric distention, no gross wall thickening. Reproductive Organs: Unremarkable as visualized. There is very mild prominence of the right parametri al vessels which can be seen with pelvic congestion syndrome. Lymph Nodes: Within normal limits. Bones: Within normal limits for the patient's age. IMPRESSION: 1. No acute abdominal or pelvic process. 2. Colonic diverticulosis without evidence of acute diverticulitis. 3. Cholelithiasis. No CT evidence to suggest acute cholecystitis. No biliary ductal dilatation. 4. No evidence of acute appendicitis or obstructive uropathy. 5. Question mild prominence of the right parametrial vessels which can be seen with pelvic congestion syndrome. RADIATION DOSE DELIVERED: 554.03mGy.cm Total DLP DATA REPOSITORY: All CT scans at this facility are submitted to the National Radiology Data Registry (NRDR) Dose Index Registry (DIR) with the [employer] (ACR). RADIATION OPTIMIZATION: All CT scans at this facility use at least one of these dose optimization te chniques: automated exposure control; mA and/or kV adjustment per patient size (includes targeted exa ms where dose is matched to clinical indication); or iterative reconstruction.
--- NOTE | 2024-12-04 16:08 | W.ED.GENAD ---
Discharge Plan Discharge Details Chief Complaint: EXPEDITIONARY FIGHTING VEHICLE [employer]WMAN Primary Care Provider: Ludwig Tavares ED Provider: Axel Duncan Home Meds and New Rx's Prescriptions: No Action multivitamin Tablet 1 tab PO DAILY albuterol sulfate 90 mcg/actuation HFA aerosol inhaler 2 puff inhalation Q6H PRN (Reason: shortness of breath or wheezing) Qty: 6.7 0RF magnesium citrate 125 mg capsule 125 mg PO DAILY ascorbate calcium (vitamin C) 500 mg tablet 500 mg PO DAILY albuterol sulfate [Ventolin HFA] 90 mcg/actuation HFA aerosol inhaler 1 - 2 puff IH Q4H PRN (Reason: shortness of breath or wheezing) Qty: 8.5 0RF herbal treatment for lyme disease 1 tab PO DAILY Rx Instructions: herbal tinctures cholecalciferol (vitamin D3) [Vitamin D3] 2,000 UNIT capsule 4,000 unit PO DAILY cholecalciferol (vitamin D3) 1,250 mcg (50,000 unit) capsule 1,250 mcg PO QWEEK Qty: 8 0RF Rx Instructions: once weekly for 8 weeks escitalopram oxalate [Lexapro] 5 mg tablet 7.5 mg PO DAILY Qty: 135 4RF Rx Instructions: Solco brand needed d/t dietary intolerances/GI issues HPI General Mode of arrival: ambulatory. Date/Time Provider Initiated Documentation: 12/04/24 14:10. Limitations to Documentation: no limitations. Information obtained by: patient. HPI Narrative: HISTORY OF PRESENT ILLNESS The patient presents for evaluation of right groin pain. She began experiencing right groin pain in early October 2024, initially attributing it to a potential swollen lymph node due to concurrent hemorrhoids. The pain, persisting for several weeks, is localized to the right side of her underwear lining and has migrated to her pelvic area. It is exacerbated by pressure and radiates across the lower pelvic region, particularly noticeable when seated in the morning. She also reports intermittent lower back pain. A kitman found no swollen lymph node, but a referral suggested a possible hernia, which was not confirmed. She [facility] appointment [facility] on . Her last menstrual period was 3 weeks ago, with severe groin pain the Saturday prior. She reports no abnormal vaginal discharge, dysuria, or hematuria. She is not sexually active and has no history of STDs. She lifted her 78-pound daughter from a wheelchair around 10/24/2024 or 10/25/2024, but the onset of her groin pain predates this event. She has had 7 CT scans in the past 4 years, including 3 or 4 abdominal scans, 2 head scans, and 1 back scan. She has not sought emergency care for her current symptoms due to concerns about additional CT scans. A HIDA test showed her gallbladder is normal with one calcified gallstone. She has intermittent chronic upper abdominal pain that is different than pain she is currently experiencing in her right lower pelvic area. Related Data Home Medications ?Medication ?Instructions ?Recorded ?Confirmed cholecalciferol (vitamin D3) 50 4,000 unit PO DAILY 04/12/17 12/04/24 mcg (2,000 unit) capsule (Vitamin D3) multivitamin 1 tab PO DAILY 12/01/21 12/04/24 ascorbate calcium (vitamin C) 500 500 mg PO DAILY 06/27/23 12/04/24 mg tablet magnesium citrate 125 mg capsule 125 mg PO DAILY 06/27/23 12/04/24 albuterol sulfate 90 mcg/actuation 1 - 2 puff inhalation Q4H PRN 09/18/23 12/04/24 aerosol inhaler (Ventolin HFA) shortness of breath or wheezing #8.5 grams cholecalciferol (vitamin D3) 1,250 1,250 mcg PO QWEEK #8 caps 09/19/23 12/04/24 mcg (50,000 unit) capsule escitalopram oxalate 5 mg tablet 7.5 mg (1.5 x 5 mg) PO DAILY #135 06/02/24 12/04/24 (Lexapro) tabs albuterol sulfate 90 mcg/actuation 2 puff inhalation Q6H PRN 06/23/24 12/04/24 aerosol inhaler shortness of breath or wheezing #6.7 grams herbal treatment for lyme disease 1 tab PO DAILY 11/05/24 12/04/24 Previous Rx's ?Medication ?Instructions ?Recorded albuterol sulfate 90 mcg/actuation 1 - 2 puff inhalation Q4H PRN 09/18/23 aerosol inhaler (Ventolin HFA) shortness of breath or wheezing #8.5 grams cholecalciferol (vitamin D3) 1,250 1,250 mcg PO QWEEK #8 caps 09/19/23 mcg (50,000 unit) capsule escitalopram oxalate 5 mg tablet 7.5 mg (1.5 x 5 mg) PO DAILY #135 06/02/24 (Lexapro) tabs albuterol sulfate 90 mcg/actuation 2 puff inhalation Q6H PRN 06/23/24 aerosol inhaler shortness of breath or wheezing #6.7 grams Allergies Allergy/AdvReac Type Severity Reaction Status Date / Time metronidazole (From Flagyl) Allergy Intermediate Skin Rash Verified 12/04/24 13:57 prednisone AdvReac Intermediate Agitation, Verified 12/04/24 13:57 hyperactivity,palpitations amoxicillin (From Augmentin) AdvReac Nausea Verified 12/04/24 13:57 clavulanic acid (From AdvReac Nausea Verified 12/04/24 13:57 Augmentin) fluconazole AdvReac anxiety Verified 12/04/24 13:57 steroids AdvReac Severe Agitation Uncoded 12/04/24 13:57 General Stated Complaint: EXPEDITIONARY FIGHTING VEHICLE [employer]WMAN ANITRA: 3 Review of Systems Narrative: REVIEW OF SYSTEMS Negative for abnormal vaginal discharge, dysuria, or hematuria. Exam Narrative Exam Narrative: Transfer exam insert exam Const General: cooperative and no acute distress [facility] Mouth: moist mucous membranes Eyes Conjunctivae: normal conjunctivae Sclera: normal sclerae Resp Auscultation: clear to auscultation bilaterally, no rales, no rhonchi and no wheezes Cardio Rate: regular rate and not tachycardic Rhythm: regular rhythm GI Palpation: soft, not firm, no guarding, no hernias, no masses, not rigid and tender (Right adnexal area) in the RLQ Skin General skin exam: no rashes or lesions noted Neuro General: patient alert, patient awake and tone normal Extrem General: no edema Psych Appearance: grossly normal Mental Status: mental status grossly normal Affect: anxious affect Course Vital Signs Vital signs: Vital Signs Temperature 36.7 C 12/04/24 13:50 Pulse 114 H 12/04/24 13:50 Respiratory Rate 22 12/04/24 13:50 Blood Pressure 104/70 12/04/24 13:50 Pulse Oximetry 97 12/04/24 13:50 Temperature 36.7 C 12/04/24 13:50 Temperature Source Oral 12/04/24 13:50 Pulse 114 H 12/04/24 13:50 Respiratory Rate 22 03/21/25 13:50 Blood Pressure 104/70 12/04/24 13:50 Blood Pressure Position Sitting 12/04/24 13:50 Pulse Oximetry 97 12/04/24 13:50 Oxygen Delivery Method Room Air 12/04/24 13:50 Oxygen Flow Rate 0 12/04/24 13:50 Pain Level 6 12/04/24 13:50 Lab/Test Results Lab/Test Results: Laboratory Tests Range/Units 12/04/24 14:38 Urine Color (Yellow) Yellow Urine Clarity (Clear) Clear Urine pH (5-8) 7.0 Ur Specific [place] (1.005-1.025) 1.015 Urine Protein (Neg-Trace) mg/dL Negative Urine Ketones (Negative) mg/dL Negative Urine Blood (Negative) Negative Urine Nitrite (Negative) Negative Urine Bilirubin (Negative) Negative Urine Urobilinogen (Up to 0.2) mg/dL 0.2 Ur Leukocyte Esterase (Negative) Negative Urine Glucose (Negative) mg/dL Negative POC- Test(urine) Negative Medical Decision Making ASSESSMENT AND PLAN Initial Assessment: Patient presents with right groin pain radiating to the pelvic area, ongoing for six weeks, with associated lower back pain. Pain worsens with pressure and sitting, particularly in the mornings. Differential Diagnosis: - Ovarian cysts: Considered due to location of pain. Plan to perform an ultrasound to investigate. - Ovarian torsion: Considered due to location of pain. Plan to perform an ultrasound to investigate. - Ovarian mass: Considered due to location of pain. Plan to perform an ultrasound to investigate. - Acute appendicitis: Unlikely due to clinical presentation. - Hernia: Less likely due to absence of palpable evidence. ED Course: - Ultrasound to be performed today to investigate the cause of the pain. -Ultrasound of the pelvis was reviewed and interpreted by radiology: 1. Normal-appearing uterus with endometrial stripe within normal limits. 2. The ovaries are grossly unremarkable and unchanged. There is normal arterial and venous blood flow to both ovaries. -Discussed results with the patient. Shared decision making plan established for CT of the abdomen pelvis to assess for acute surgical pathology including abscess. Will obtain screening labs. -1613: Care signed out to ELEANOR Sanchez. Plan at time of signout was to follow-up on labs, CT of the abdomen pelvis, reassess patient for disposition. MDM Components Evaluation: - Number of Differential Diagnoses or Management Options: Ovarian cysts, ovarian torsion, ovarian mass, acute appendicitis, hernia. - Amount and Complexity of Data Reviewed: Ultrasound planned, potential CT scan. - Risk of Complication and Morbidity or Mortality: Cumulative radiation exposure from multiple prior CT scans. This document was written with the assistance of COLLEEN Quarles. The patient consented to its use. Quality:SDOH Health Related Social Needs: No Data to Display PFSH All Active Problems Fullness in left ear (Acute) Anal pruritus (Acute) Cervical pain (Acute) Labial pain (Acute) Right flank pain (Acute) Migraine (Chronic) Low serum iron (Acute) Vision abnormalities (Acute) History of gestational diabetes (Acute) Anxiety (Chronic) Vaginal pain (Acute) Pelvic pain (Acute) Patellofemoral arthralgia of both knees (Acute) Paresthesia of both feet (Acute) Hand numbness (Acute) Menorrhagia with regular cycle (Acute) Vitamin D deficiency (Acute) Medical History New daily persistent headache Sensation of fullness in both ears Otalgia of left ear Upper respiratory infection Anxiety about health COVID-19 (~10/12/21) Per antigen test x 2, 10/11 and 10/12/21. Neg pcr 10/09/21. Fibrocystic disease of breast (02/20/13) Family History Mother No problems noted. Father No problems noted. Maternal Grandmother Colon cancer Son Down syndrome Social History Smoking/Tobacco Use Status: Former Tobacco Use tobacco type: cigarettes Quit Date: 09/16/11 Pack-years: 10 Tobacco: How many years used: 10 Smoking risk assessment performed?: Yes Alcohol Intake: current Alcohol Intake frequency: holidays/special occasions only Drug use: Never Substance use type: does not use Household members: children and other Details: from . Trying to work it out. 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 Do you feel safe at home: Yes Do you feel safe in your relationship?: Yes Additional Social history: Enjoys exercise - new spin bike; spending time with family. Female Reproductive History Menstrual control method: none and other History History 5 Para 4 Hx # Term Pregnancies 4 Multiple births Hx # Pregnancies Ectopic pregnancies AB induced Hx Number of Living Children 4 AB spontaneous 1
[2024-12-04 16:19] LABS: Abs Immature Grans 0.01 10^3/uL (0.0-0.06); Absolute Basophil Count 0.03 10^3/uL (0.0-0.2); Absolute Eosinophil Count 0.08 10^3/uL (0.0-0.7); Absolute Lymphocyte Count 1.99 10^3/uL (1.2-3.4); Absolute Monocyte Count 0.62 10^3/uL (0.1-0.8); Absolute Neutrophil Count 3.64 10^3/uL (1.2-6.7); Basophils % 0.5 %; Eosinophils % 1.3 %; HCT 40.9 % (36.0-46.0); Immature Grans % 0.2 %; Lymphocytes % 31.2 %; MCH 29.8 pg (27.0-33.0); MCHC 34.2 % (32.0-36.0); MCV 87 fL (80-95); MPV 9.7 fL (8.0-11.0); Monocytes % 9.7 %; Neutrophils % 57.1 %; Platelet Count 331 10^3/uL (130-400); RDW-SD 38.1 fL; WBC 6.37 10^3/uL (4.4-10.8)
--- NOTE | 2024-12-04 16:19 | W.EDPROG ---
Date of service: 12/04/24 Time of Service: 16:19 Medical Decision Making This dictation utilizes [id number] dictation software and may contain unedited grammatical errors. Patient seen in signout from Dr. Axel Duncan, please see his complete note, essentially this 39-year-old female presents with intermittent chronic abdominal pain since at least October, has follow-up appointment scheduled with women's wellness and high anxiety over need for possible CT scan due to future risk of malignancy. Her ultrasound was negative prior to my arrival with no abnormalities noted, her blood work is benign without any signs of UTI or acute infectious etiology, CT is pending at time of signout. ED Course/Assessment/Plan: Patient CT returned showing possible prominence of the right parametrial vessels which is in the same quadrant as her chronic intermittent abdominal pain, I did recommend she follow-up with her already scheduled women's wellness appointment to discuss treatment options for possible pelvic congestion syndrome which may need further specialized studies like venography or MRA to definitively diagnose, patient had high anxiety over this condition but I reassured her that there was no acute intervention beyond simple [id number] analgesics and provided reassurance that there was nothing emergently surgical going on in her abdomen. Findings not consistent with SBO, appendicitis, TOA, ovarian cyst, PID, UTI, pyelonephritis or other surgical abdominal emergency. Disposition of Pelvic Congestion Syndrome. Patient verbalized understanding of the plan and return to ED criteria and engaged in shared decision making. Medical Records Medical records reviewed: Yes I reviewed the patient's medical records. Imaging Data Radiologic Study: Attestation: I personally reviewed and interpreted this imaging study as follows: Imaging: Ultrasound Radiologist's impression: EXAM: US PELVIS TRANSVAGINAL CLINICAL HISTORY: rt adnexal pain. TECHNIQUE: Transabdominal and transvaginal pelvic ultrasound was performed using standard protocol. COMPARISON: US US PELVIS TRANSVAGINAL from 05/22/2024 FINDINGS: UTERUS: Position: Anteverted. Size: 9.3 long by 5.2 AP by 6.3 transverse cm Endometrium: 1.0 cm. Normal for patient's menstrual status. Myometrium: Unremarkable. Cervix: Unremarkable. OVARIES: Right: 2.7 x 1.9 x 1.9 cm Cyst or mass: No suspicious cystic or solid masses. Left: 2.9 x 2.0 x 2.2 cm Cyst or mass: No suspicious cystic or solid masses. The 6 mm echogenic nodule in the left ovary is unchanged. Again this may represent a small dermoid or small endometrioma. DOPPLER: Color: Symmetric and uniform flow to both ovaries. CUL-DE-SAC: Free fluid: None. Other: None. IMPRESSION: 1. Normal-appearing uterus with endometrial stripe within normal limits. 2. The ovaries are grossly unremarkable and unchanged. There is normal arterial and venous blood flow to both ovaries. Radiologic Study #2: Attestation: I personally reviewed and interpreted this imaging study as follows: Imaging: CT Scan Radiologist's impression: EXAM: CT ABDOMEN PELVIS W CLINICAL HISTORY: rt lower abd and pelvic pain TECHNIQUE: Imaging Protocol: Axial computed tomography images with coronal and sagittal reformatted images were created and reviewed. CONTRAST MATERIAL: Intravenous: Omnipaque 350 Contrast volume:75 mL Oral: No COMPARISON: CT CT ABDOMEN PELVIS W from 11/22/2021 US US PELVIS TRANSVAGINAL from 12/04/2024 FINDINGS: ABDOMEN: Lung Bases: No acute abnormality. Liver: Normal density. No measurable mass. Portal, Superior Mesenteric, and Splenic Veins: Unremarkable. Gallbladder and Biliary Tract: There is cholelithiasis. The gallbladder is contracted. No biliary ductal dilatation is present. Pancreas: Normal density, no abnormal calcifications or inflammatory process. Spleen: Normal. Adrenals: No masses seen. Kidneys: Normal size, contour and axis. No radiodense stones or obstructive uropathy. There is a round 3 mm fat density lesion in the right kidney. It is most suggestive of a benign lesion such as an angiomyolipoma. No suspicious renal masses are present. Abdominal Aorta: Abdominal portion non-dilated. Bowel: There are few diverticula in the colon but no evidence of acute diverticulitis. There is mild wall thickening seen in the small bowel in the left upper quadrant which may represent an enteritis. There is no other bowel wall thickening. No evidence of obstruction. No evidence of appendicitis. Peritoneal Cavity: No ascites, collection or mesenteric inflammatory response. No free air. Lymph Nodes: Within normal limits. Bones: Within normal limits for the patient's age. Soft Tissues: Unremarkable. PELVIS: Bladder: Symmetric distention, no gross wall thickening. Reproductive Organs: Unremarkable as visualized. There is very mild prominence of the right parametrial vessels which can be seen with pelvic congestion syndrome. Lymph Nodes: Within normal limits. Bones: Within normal limits for the patient's age. IMPRESSION: 1. No acute abdominal or pelvic process. 2. Colonic diverticulosis without evidence of acute diverticulitis. 3. Cholelithiasis. No CT evidence to suggest acute cholecystitis. No biliary ductal dilatation. 4. No evidence of acute appendicitis or obstructive uropathy. 5. Question mild prominence of the right parametrial vessels which can be seen with pelvic congestion syndrome. Lab Data Lab results reviewed: Yes I reviewed the patient's lab results. Labs: Laboratory Tests Range/Units 12/04/24 12/04/24 14:38 15:56 WBC (4.4-10.8) 10^3/uL 6.37 RBC (3.93-5.22) 10^6/uL 4.70 Hgb (11.2-15.7) g/dL 14.0 Hct (36.0-46.0) % 40.9 MCV (80-95) fL 87 MCH (27.0-33.0) pg 29.8 MCHC (32.0-36.0) % 34.2 RDW (11.7-14.6) % 12.0 Plt Count (130-400) 10^3/uL 331 MPV (8.0-11.0) fL 9.7 Immature Gran % % 0.2 Neutrophils % % 57.1 Lymphocytes % % 31.2 Monocytes % % 9.7 Eosinophils % % 1.3 Basophils % % 0.5 Nucleated RBC % (0.0-0.3) % 0.0 Absolute Neutrophils (1.2-6.7) 10^3/uL 3.64 Absolute Lymphocytes (1.2-3.4) 10^3/uL 1.99 Absolute Monocytes (0.1-0.8) 10^3/uL 0.62 Absolute Eosinophils (0.0-0.7) 10^3/uL 0.08 Absolute Basophils (0.0-0.2) 10^3/uL 0.03 Sodium (136-145) mmol/L 140 Potassium (3.5-5.1) mmol/L 3.7 Chloride (98-107) mmol/L 105 Carbon Dioxide (21.0-32.0) mmol/L 31.1 Anion Gap (3-11) mmol/L 3.9 BUN (7-18) mg/dL 9 Creatinine (0.55-1.02) mg/dL 0.7 Est GFR (CKD-EPI 2020) (mL/min/1.73m2) 113.46 Glucose (74-106) mg/dL 106 Calcium (8.5-10.1) mg/dL 9.0 Total Bilirubin (0.2-1.0) mg/dL 0.3 AST (15-37) U/L 20 ALT (14-59) U/L 32 Alkaline Phosphatase (46-116) U/L 83 Total Protein (6.4-8.2) g/dL 7.3 Albumin (3.4-5.0) g/dL 3.8 Urine Color (Yellow) Yellow Urine Clarity (Clear) Clear Urine pH (5-8) 7.0 Ur Specific [place] (1.005-1.025) 1.015 Urine Protein (Neg-Trace) mg/dL Negative Urine Ketones (Negative) mg/dL Negative Urine Blood (Negative) Negative Urine Nitrite (Negative) Negative Urine Bilirubin (Negative) Negative Urine Urobilinogen (Up to 0.2) mg/dL 0.2 Ur Leukocyte Esterase (Negative) Negative Urine Glucose (Negative) mg/dL Negative Quality:SDOH Health Related Social Needs: No Data to Display Discharge Plan Disposition Patient Disposition: Home Condition: Stable Discharge Details Clinical Impression: Pelvic congestion syndrome Primary Care Provider: Ludwig Tavares ED Provider: Ariel Sanchez Home Meds and New Rx's Prescriptions: New ketorolac 10 mg tablet 10 mg PO QID PRN5 Days Qty: 20 0RF Rx Instructions: maximum total duration of 5 days from all oral, intranasal, or parenteral formulations Continued multivitamin Tablet 1 tab PO DAILY albuterol sulfate 90 mcg/actuation HFA aerosol inhaler 2 puff inhalation Q6H PRN (Reason: shortness of breath or wheezing) Qty: 6.7 0RF magnesium citrate 125 mg capsule 125 mg PO DAILY ascorbate calcium (vitamin C) 500 mg tablet 500 mg PO DAILY albuterol sulfate [Ventolin HFA] 90 mcg/actuation HFA aerosol inhaler 1 - 2 puff IH Q4H PRN (Reason: shortness of breath or wheezing) Qty: 8.5 0RF herbal treatment for lyme disease 1 tab PO DAILY Rx Instructions: herbal tinctures cholecalciferol (vitamin D3) [Vitamin D3] 2,000 UNIT capsule 4,000 unit PO DAILY cholecalciferol (vitamin D3) 1,250 mcg (50,000 unit) capsule 1,250 mcg PO QWEEK Qty: 8 0RF Rx Instructions: once weekly for 8 weeks escitalopram oxalate [Lexapro] 5 mg tablet 7.5 mg PO DAILY Qty: 135 4RF Rx Instructions: Sol[employer] brand needed d/t dietary intolerances/GI issues Discharge Instructions Instructions: Ketorolac (Systemic), Pelvic Pain ED Additional Instructions: You were seen in the emergency department for your right-sided lower abdominal pain, there is no acute emergent pathology like appendicitis or bowel obstruction or ovarian cyst or torsion or mass seen on your CT scan, your ultrasound was completely normal, does show possible enlargement or prominence of the right sided parametrial vessels which sometimes can cause pain in the setting of pelvic congestion syndrome, this is not a definitive diagnosis as you may need further studies, please follow-up with your scheduled appointment with women's wellness for further workup and possible trial of medicines and further outpatient imaging to confirm possible diagnosis. I have sent a prescription for Toradol to your pharmacy, take this for 5 days, you can add 1000 mg of Tylenol 4 times per day as well. Please return to the emergency department for any emergent concerns. Referrals: [facility] [Provider Group] Ludwig Tavares NP [Primary Care Provider] - Discharge Data Discharge Date/Time-TO BE ENTERED AT DEPARTURE: 12/04/24 17:44
[2024-12-04 16:34] LABS: ALT 32 U/L (14-59); AST 20 U/L (15-37); Albumin 3.8 g/dL (3.4-5.0); Alkaline Phosphatase 83 U/L (46-116); Anion Gap 3.9 mmol/L (3-11); BUN 9 mg/dL (7-18); Bilirubin, Total 0.3 mg/dL (0.2-1.0); CO2 31.1 mmol/L (21.0-32.0); CREATININE 0.7 mg/dL (0.55-1.02); Chloride 105 mmol/L (98-107); Estimated GFR 113.46 (mL/min/1.73m2); Glucose 106 mg/dL (74-106); Potassium 3.7 mmol/L (3.5-5.1); Sodium 140 mmol/L (136-145); Total Protein 7.3 g/dL (6.4-8.2)
[2024-12-04] MEDS: Omnipaque 350 MG/ML 100 ML BTL 75 ML IJ (16:39)
[2024-12-04] MEDS: Normal Saline - Diluent 50 ML VIAL IJ (16:40)
[2024-12-04 17:07] VITALS: BP 128/90; PULSE 69; RESP 18; O2SAT 99
== END 2024-12-04 17:44 | disposition home or self-care (01) ==
PROVIDERS: Student in an Organized Health Care Education/Training Program; Emergency Provider Physician Assistant; PCP Nurse Practitioner Family
DX: R10.2 Pelvic and perineal pain (principal); N94.89 Other specified conditions associated with female genital organs and menstrual cycle
CPT/HCPCS: 00123; 36415; 80053; 81025; 99285; 74177; 76830; 76856; 81003; 85025; 99283; J3490

== ENCOUNTER 2025-01-10 14:00 | Emergency (ER) | payer MEDICAID, SELFPAY ==
[2025-01-10 14:17] VITALS: BP 108/77; PULSE 65; RESP 15; TEMP 36.8; O2SAT 98
--- NOTE | 2025-01-10 14:30 | DI.RAD_ITS ---
Exam(s) XR TOE LT FIFTH EXAM: XR TOE LT FIFTH CLINICAL HISTORY: pinky toe injury. TECHNIQUE: 2D digital imaging was performed. Three images were obtained. COMPARISON: CR LEFT FOOT COMPLETE from 05/04/2018 FINDINGS: BONES: On the lateral view there is a lucency at the dorsal aspect of the distal phalanx suspicious for nondisplaced fracture. No bony destructive lesion is seen. JOINTS: No dislocation present. SOFT TISSUE: Normal. IMPRESSION: Lucency at the dorsal aspect of the base of the distal phalanx of the 5th toe suspicious for fracture . DATA REPOSITORY: RADIATION DOSE DELIVERED:
--- NOTE | 2025-01-10 14:41 | ED.GENADUL_ITS ---
Discharge Plan Disposition Patient Disposition: Home Condition: Stable Discharge Details Clinical Impression: Contusion of fifth toe Primary Care Provider: Ludwig Tavares ED Provider: John Aguero Home Meds and New Rx's Prescriptions: No Action multivitamin Tablet 1 tab PO DAILY albuterol sulfate 90 mcg/actuation HFA aerosol inhaler 2 puff inhalation Q6H PRN (Reason: shortness of breath or wheezing) Qty: 6.7 0RF magnesium citrate 125 mg capsule 125 mg PO DAILY ascorbate calcium (vitamin C) 500 mg tablet 500 mg PO DAILY albuterol sulfate [Ventolin HFA] 90 mcg/actuation HFA aerosol inhaler 1 - 2 puff IH Q4H PRN (Reason: shortness of breath or wheezing) Qty: 8.5 0RF herbal treatment for lyme disease 1 tab PO DAILY Rx Instructions: herbal tinctures cholecalciferol (vitamin D3) [Vitamin D3] 2,000 UNIT capsule 4,000 unit PO DAILY cholecalciferol (vitamin D3) 1,250 mcg (50,000 unit) capsule 1,250 mcg PO QWEEK Qty: 8 0RF Rx Instructions: once weekly for 8 weeks escitalopram oxalate [Lexapro] 5 mg tablet 7.5 mg PO DAILY Qty: 135 4RF Rx Instructions: Sol[employer] brand needed d/t dietary intolerances/GI issues Discharge Instructions Additional Instructions: X-ray does not reveal a fracture of your toe. Please continue supportive care like alex tape, hard soled shoe, Motrin or Tylenol for pain and ice pack to help with bruising and swelling. May be painful, but continue activity as tolerated symptoms should continue to improve HPI General Date/Time Provider Initiated Documentation: 01/10/25 14:34 . Limitations to Documentation: no limitations . Information obtained by: patient . HPI Narrative: 39-year-old female without significant past medical history presents for evaluation of left pinky toe injury. She reports that last night she was walking in her home when she hit her barefoot on a weight that had been left in the middle of the floor. She reports immediate onset of pain. Pain worse with walking. She has not tried any medications for relief. Related Data Home Medications ?Medication ?Instructions ?Recorded ?Confirmed cholecalciferol (vitamin D3) 50 4,000 unit PO DAILY 04/12/17 01/10/25 mcg (2,000 unit) capsule (Vitamin D3) multivitamin 1 tab PO DAILY 12/01/21 01/10/25 ascorbate calcium (vitamin C) 500 500 mg PO DAILY 06/27/23 01/10/25 mg tablet magnesium citrate 125 mg capsule 125 mg PO DAILY 06/27/23 01/10/25 albuterol sulfate 90 mcg/actuation 1 - 2 puff inhalation Q4H PRN 09/18/23 01/10/25 aerosol inhaler (Ventolin HFA) shortness of breath or wheezing #8.5 grams cholecalciferol (vitamin D3) 1,250 1,250 mcg PO QWEEK #8 caps 09/19/23 01/10/25 mcg (50,000 unit) capsule escitalopram oxalate 5 mg tablet 7.5 mg (1.5 x 5 mg) PO DAILY #135 06/02/24 01/10/25 (Lexapro) tabs albuterol sulfate 90 mcg/actuation 2 puff inhalation Q6H PRN 06/23/24 01/10/25 aerosol inhaler shortness of breath or wheezing #6.7 grams herbal treatment for lyme disease 1 tab PO DAILY 11/05/24 01/10/25 Previous Rx's ?Medication ?Instructions ?Recorded albuterol sulfate 90 mcg/actuation 1 - 2 puff inhalation Q4H PRN 09/18/23 aerosol inhaler (Ventolin HFA) shortness of breath or wheezing #8.5 grams cholecalciferol (vitamin D3) 1,250 1,250 mcg PO QWEEK #8 caps 09/19/23 mcg (50,000 unit) capsule escitalopram oxalate 5 mg tablet 7.5 mg (1.5 x 5 mg) PO DAILY #135 06/02/24 (Lexapro) tabs albuterol sulfate 90 mcg/actuation 2 puff inhalation Q6H PRN 06/23/24 aerosol inhaler shortness of breath or wheezing #6.7 grams Allergies Allergy/AdvReac Type Severity Reaction Status Date / Time metronidazole (From Flagyl) Allergy Intermediate Skin Rash Verified 01/10/25 14:19 prednisone AdvReac Intermediate Agitation, Verified 01/10/25 14:19 hyperactivity,palpitations amoxicillin (From Augmentin) AdvReac Nausea Verified 01/10/25 14:19 clavulanic acid (From AdvReac Nausea Verified 01/10/25 14:19 Augmentin) fluconazole AdvReac anxiety Verified 01/10/25 14:19 steroids AdvReac Severe Agitation Uncoded 01/10/25 14:19 General Stated Complaint: Orthopedic ANITRA: 4 Exam Narrative Exam Narrative: Review of Systems: All systems reviewed & are unremarkable except as noted in HPI and below Well-developed, no acute distress Unlabored respiratory effort Left foot fifth toe with some mild circumferential swelling and bruising, nail is intact without subungual hematoma, sensation intact, no tenderness proximally on the foot, no deformity or displacement of the toe Course Vital Signs Vital signs: Vital Signs Temperature 36.8 C 01/10/25 14:17 Pulse 65 01/10/25 14:17 Respiratory Rate 15 01/10/25 14:17 Blood Pressure 108/77 01/10/25 14:17 Pulse Oximetry 98 01/10/25 14:17 Temperature 36.8 C 01/10/25 14:17 Pulse 65 01/10/25 14:17 Respiratory Rate 15 01/10/25 14:17 Blood Pressure 108/77 01/10/25 14:17 Pulse Oximetry 98 01/10/25 14:17 Pain Level 8 01/10/25 14:17 Medical Decision Making Emergent evaluation of acute left toe injury. Initial differential includes fracture, contusion, no evidence of dislocation on physical examination. X-ray obtained and reviewed, no obvious fracture. Offered a postop shoe for comfort, but patient states it does not feel very good to wear it. Recommend alex tape or what ever does feel comfortable for her in addition to supportive care, pain control. Follow-up with PCP as needed. Quality:SDOH Health Related Social Needs: No Data to Display PFSH All Active Problems (Updated 01/10/25 @ 15:02 by John Aguero MD) Contusion of fifth toe (Acute) Fullness in left ear (Acute) Cervical pain (Acute) Right flank pain (Acute) Migraine (Chronic) Low serum iron (Acute) Vision abnormalities (Acute) Anxiety (Chronic) Pelvic pain (Acute) Patellofemoral arthralgia of both knees (Acute) Paresthesia of both feet (Acute) Hand numbness (Acute) Vitamin D deficiency (Acute) Medical History (Updated 01/10/25 @ 15:02 by John Aguero MD) Anal pruritus resolved with clobetasol/betamethasone Oct 2024 Labial pain History of gestational diabetes Vaginal pain Menorrhagia with regular cycle New daily persistent headache Sensation of fullness in both ears Otalgia of left ear Upper respiratory infection Anxiety about health COVID-19 (~10/12/21) Per antigen test x 2, 10/11 and 10/12/21. Neg pcr 10/09/21. Fibrocystic disease of breast (02/20/13) Family History Mother No problems noted. Father No problems noted. Maternal Grandmother Colon cancer Son Down syndrome Social History Smoking/Tobacco Use Status: Former Tobacco Use tobacco type: cigarettes Quit Date: 09/16/11 Pack-years: 10 Tobacco: How many years used: 10 Smoking risk assessment performed?: Yes Alcohol Intake: current Alcohol Intake frequency: holidays/special occasions only Drug use: Never Substance use type: does not use Household members: children and other Details: from . Trying to work it out. 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 Do you feel safe at home: Yes Do you feel safe in your relationship?: Yes Additional Social history: Enjoys exercise - new [employer] bike; spending time with family. Female Reproductive History Menstrual control method: none and other History History 5 Para 4 Hx # Term Pregnancies 4 Multiple births Hx # Pregnancies Ectopic pregnancies AB induced Hx Number of Living Children 4 AB spontaneous 1
[2025-01-10] MEDS: Acetaminophen 500 MG TAB (14:44)
== END 2025-01-10 15:31 | disposition home or self-care (01) ==
PROVIDERS: Emergency Provider Emergency Medicine; PCP Nurse Practitioner Family
DX: S90.122A Contusion of left lesser toe(s) without damage to nail, initial encounter (principal); W22.8XXA Striking against or struck by other objects, initial encounter
CPT/HCPCS: 99283 ×2; 73660

== ENCOUNTER 2025-02-01 12:58 | Outpatient (REF) | payer MEDICAID, SELFPAY ==
[2025-02-01 17:06] LABS: HGB 13.2 g/dL (11.2-15.7); MCH 29.7 pg (27.0-33.0); MCHC 33.8 % (32.0-36.0); MCV 88 fL (80-95); MPV 10.5 fL (8.0-11.0); Platelet Count 287 10^3/uL (130-400); RBC 4.44 10^6/uL (3.93-5.22); RDW 12.1 % (11.7-14.6); RDW-SD 38.6 fL; WBC 5.11 10^3/uL (4.4-10.8)
[2025-02-01 17:24] LABS: Iron 36 ug/dL (50-170)
[2025-02-01 17:43] LABS: ALT 27 U/L (14-59); AST 19 U/L (15-37); Albumin 3.9 g/dL (3.4-5.0); Alkaline Phosphatase 81 U/L (46-116); BUN 12 mg/dL (7-18); Bilirubin, Total 0.3 mg/dL (0.2-1.0); CREATININE 0.6 mg/dL (0.55-1.02); Calcium 9.1 mg/dL (8.5-10.1); Chloride 104 mmol/L (98-107); Estimated GFR 117.75 (mL/min/1.73m2); Ferritin 11 ng/mL (8-252); Glucose 110 mg/dL (74-106); Potassium 4.2 mmol/L (3.5-5.1); Sodium 138 mmol/L (136-145); TSH (W/Ref FT4) 1.49 uIU/mL (0.36-3.74); Total Protein 7.1 g/dL (6.4-8.2); Vitamin D 25 Total 26 ng/mL (30-100)
== END 2025-02-01 12:59 | disposition home or self-care (01) ==
LOC: NCHCN 12:58
PROVIDERS: PCP Nurse Practitioner Family; Visit Provider Nurse Practitioner Family
DX: E61.1 Iron deficiency (principal); R53.83 Other fatigue; E55.9 Vitamin D deficiency, unspecified
CPT/HCPCS: 80053; 82306; 85027; 82728; 83540; 84443

== ENCOUNTER 2025-05-18 18:35 | Emergency (ER) | payer MEDICAID, SELFPAY ==
[2025-05-18 18:37] VITALS: BP 117/80; PULSE 72; RESP 16; TEMP 36.7; O2SAT 97
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
== END 2025-05-18 20:21 | disposition home or self-care (01) ==
PROVIDERS: Emergency Provider Emergency Medicine; PCP Nurse Practitioner Family
DX: S16.1XXA Strain of muscle, fascia and tendon at neck level, initial encounter; V23.49XA Other motorcycle driver injured in collision with car, pick-up truck or van in traffic accident, initial encounter; S29.012A Strain of muscle and tendon of back wall of thorax, initial encounter
CPT/HCPCS: 99283; 99284; 72040; 72072

== ENCOUNTER 2025-06-02 16:20 | Outpatient (REF) | payer MEDICAID, SELFPAY ==
[2025-06-03 13:18] LABS: Chlamydia Result Negative (Negative); GC Result Negative (Negative)
== END 2025-06-02 16:21 | disposition home or self-care (01) ==
LOC: LBN 16:20
PROVIDERS: PCP Nurse Practitioner Family; Visit Provider Obstetrics & Gynecology
DX: N89.8 Other specified noninflammatory disorders of vagina (principal); Z20.2 Contact with and (suspected) exposure to infections with a predominantly sexual mode of transmission
CPT/HCPCS: 87491; 87591

== ENCOUNTER 2025-07-27 13:47 | Outpatient (REF) | payer MEDICAID, SELFPAY ==
[2025-07-29 12:10] LABS: Chlamydia Result Negative (Negative); GC Result Negative (Negative)
== END 2025-07-27 13:48 | disposition home or self-care (01) ==
LOC: LBN 13:47
PROVIDERS: PCP Nurse Practitioner Family; Visit Provider Obstetrics & Gynecology
DX: Z11.3 Encounter for screening for infections with a predominantly sexual mode of transmission (principal)
CPT/HCPCS: 87491; 87591

== ENCOUNTER 2025-07-27 14:11 | Outpatient (CLI) | payer MEDICAID, SELFPAY ==
[2025-07-27 23:11] LABS: HIV-1/2 Ag & Ab Screen Negative (Negative)
[2025-07-27 23:12] LABS: Hepatitis C Ab w Rflx HCV PCR Negative (Negative)
[2025-07-28 11:25] LABS: Syphilis Serology (RPR) Negative (Negative)
== END 2025-07-27 14:12 | disposition home or self-care (01) ==
LOC: LBO 14:11
PROVIDERS: PCP Nurse Practitioner Family; Visit Provider Obstetrics & Gynecology
DX: N89.8 Other specified noninflammatory disorders of vagina (principal); Z20.2 Contact with and (suspected) exposure to infections with a predominantly sexual mode of transmission; Z01.419 Encounter for gynecological examination (general) (routine) without abnormal findings
CPT/HCPCS: 36415; 86803; 87340; 87389; 86592

== ENCOUNTER → 2025-09-13 14:40 | Outpatient (CLI) | payer MEDICAID, SELFPAY ==
--- NOTE | 2025-09-13 14:52 | DI.RAD_ITS ---
Exam(s) XR CHEST 2V PA LATERAL EXAM: XR CHEST 2V PA LATERAL CLINICAL HISTORY: cough, r/o pneumonia R05.9 COUGH. TECHNIQUE: 2D digital imaging was performed. COMPARISON: CR XR CHEST 2V PA LATERAL from 06/23/2024 FINDINGS: 2 views: Heart size is normal. The mediastinum is not widened. Lungs are clear. No infiltrates nor pleural effusions. IMPRESSION: No acute pulmonary findings. DATA REPOSITORY: RADIATION DOSE DELIVERED:
== END ==
LOC: DI 14:40
PROVIDERS: PCP Nurse Practitioner Family; Visit Provider Physician Assistant
DX: R05.9 Cough, unspecified (principal)
CPT/HCPCS: 71046